=== PATIENT | female | born 1935 | race Caucasian/White ===

== ENCOUNTER 2021-02-19 07:53 | Day surgery (SDC) | payer MEDICAID, OTHER ==
[~2021-02-19] VITALS: Ht 157.5 cm; Wt 86.2 kg
[~2021-02-19 07:53] MED LIST: APIX5TAB PO; COLC1TAB3 PO; LEVO25TA6 PO; METO-159 PO; PREG50CA PO; THEO80EL PO
[2021-02-19] MEDS ORDERED: CIPROFLOXACIN 400MG/200ML 200 ML IV ONE (10:22)
[2021-02-19] MEDS ORDERED: fentaNYL CITRATE 100 MCG/2 ML VL ONE (11:11)
[2021-02-19] MEDS ORDERED: MIDAZOLAM HCL 1MG/1ML-2 ML VIAL ONE (11:12)
[2021-02-19] MEDS ORDERED: ONDANSETRON HCL 4 MG/2 ML VIAL ONE (12:05)
[2021-02-19] MEDS ORDERED: ONDANSETRON HCL 4 MG/2 ML VIAL IV PRN (12:45)
[2021-02-19 13:28] VITALS: BP 114/70
[2021-02-19] MEDS ORDERED: PROPOFOL 10 MG/ML 20 ML IV ONE (13:36)
== END 2021-02-19 13:30 | disposition home or self-care (01) ==
LOC: SUR 07:53
PROVIDERS: ATTEND Urology
DX: N20.0 Calculus of kidney (principal); I48.91 Unspecified atrial fibrillation; E03.9 Hypothyroidism, unspecified; J45.909 Unspecified asthma, uncomplicated; K21.9 Gastro-esophageal reflux disease without esophagitis; M19.90 Unspecified osteoarthritis, unspecified site; Z20.822 Contact with and (suspected) exposure to COVID-19; Z88.0 Allergy status to penicillin; Z88.5 Allergy status to narcotic agent; Z98.890 Other specified postprocedural states; Z90.710 Acquired absence of both cervix and uterus; Z95.0 Presence of cardiac pacemaker; Z88.8 Allergy status to other drugs, medicaments and biological substances; Z68.34 Body mass index [BMI] 34.0-34.9, adult
CPT/HCPCS: 50590; 52310; J0744; J2250; J2405; J2704; J3010; J7030; U0003

== ENCOUNTER 2021-10-14 09:04 | Emergency (ER) | payer OTHER ==
[~2021-10-14] VITALS: Ht 157.5 cm; Wt 86.2 kg
[2021-10-14] MEDS ORDERED: ALLOPURINOL 100 MG TAB PO ONE (09:45)
[2021-10-14 11:00] VITALS: BP 190/82
[2021-10-14] MEDS ORDERED: ALL100T PO (11:08)
== END 2021-10-14 11:20 | disposition home or self-care (01) ==
LOC: ER 09:04
DX: M77.9 Enthesopathy, unspecified (principal); M85.872 Other specified disorders of bone density and structure, left ankle and foot; M10.9 Gout, unspecified; Z88.0 Allergy status to penicillin; Z88.6 Allergy status to analgesic agent
CPT/HCPCS: 73630

== ENCOUNTER 2023-01-09 08:57 | Inpatient (IN) | payer OTHER ==
[~2023-01-09] VITALS: Ht 157.5 cm; Wt 73.0 kg
[~2023-01-09 08:57] MED LIST changes: +ALL100T PO
[2023-01-09 09:23] LABS: Basophils # (auto) 0 10 ^3/uL (0-0.2); Basophils % (auto) 0.4 % (0.0-2.0); Eosinophils # (auto) 0.1 10 ^3/uL (0-0.8); Eosinophils % (auto) 1.9 % (0.0-7.0); Hematocrit 41.9 % (36.0-46.0); Hemoglobin 13.9 g/dL (12.2-16.2); Lymphocytes # (auto) 1.6 10 ^3/uL (0.4-5.4); Lymphocytes % (auto) 21.5 % (10.0-50.0); Mean Corpuscular Hemoglobin 30.1 pg (28.0-32.0); Mean Corpuscular Hgb Conc. 33.3 g/dL (32.0-36.0); Mean Corpuscular Volume 90.2 fL (80.0-100.0); Monocytes # (auto) 0.7 10 ^3/uL (0-1.3); Monocytes % (auto) 8.9 % (0.0-12.0); Neutrophils # (auto) 5.2 10 ^3/uL (1.6-8.6); Neutrophils % (auto) 67.3 % (37.0-80.0); Nucleated Red Blood Cells % 0.2 %; Red Blood Cells 4.64 10^6/uL (4.0-5.20); Red Cell Distribution Width 17.9 % (11.8-14.3); White Blood Cell 7.7 10^3/uL (4.4-10.8)
[2023-01-09] MEDS ORDERED: ASPirin 81 mg TAB PO ONE (09:30)
[2023-01-09 09:45] LABS: INR 1.05 (0.9-1.15); Partial Thromboplastin Time 29.9 sec (24.6-33.4)
[2023-01-09 09:48] LABS: Albumin 3.9 g/dL (3.4-5.0); Calcium 9.7 mg/dL (8.5-10.1); Magnesium 2.3 mg/dL (1.6-2.6); Potassium 4.1 mmol/L (3.5-5.1)
[2023-01-09 09:53] LABS: Bilirubin, Total 0.5 mg/dL (0.2-1.0); Total Protein 7.4 g/dL (6.4-8.2)
[2023-01-09] MEDS ORDERED: HYDROmorphone HCL 2 MG/ML VL/or syr IV ONE ×2 (10:15→20:30)
[2023-01-09] MEDS ORDERED: ONDANSETRON HCL 4 MG/2 ML VIAL IV ONE (10:15)
[2023-01-09 15:19] LABS: Urine Bacteria NONE SEEN /hpf (None Seen); Urine Blood Negative /uL (Negative); Urine Specific Gravity 1.024 (1.001-1.035); Urine WBC 3 /hpf (0 - 5)
[2023-01-09] MEDS ORDERED: ONDANSETRON HCL 4 MG/2 ML VIAL IV PRN (18:00)
[2023-01-09] MEDS ORDERED: MORPHINE SULFATE INJ 2 MG/ml SYRG IV PRN ×2 (18:00)
[2023-01-09] MEDS ORDERED: DOCUSATE SOD 100 MG CAP PO PRN (18:00)
[2023-01-09] MEDS ORDERED: NITROGLYCERIN 0.4 MG SL TAB SL PRN (18:00)
[2023-01-09] MEDS ORDERED: ACETAMINOPHEN 325 MG TAB PO PRN (18:00)
[2023-01-10] MEDS: HYDROcodone-ACET 5/325MG TAB PO PRN ×2 (01:40→10:25)
[2023-01-10] MEDS ORDERED: ENOXAPARIN SOD 40 MG/0.4 ML SYRINGE SC SCH (10:00)
[2023-01-10] MEDS ORDERED: HYDROmorphone HCL 2 MG/ML VL/or syr IV ONE (13:00)
[2023-01-10] MEDS ORDERED: SODIUM CHLORIDE 0.9% 500 ML IV ONE (14:45)
[2023-01-10 16:25] VITALS: BP 121/67
[2023-01-10] MEDS ORDERED: PREGABALIN 25 MG CAP PO SCH (22:00)
[2023-01-10] MEDS ORDERED: APIXABAN 5 MG TAB PO SCH (22:00)
[2023-01-10] MEDS ORDERED: COLCHICINE 0.6 MG CAP PO SCH (22:00)
[2023-01-11] MEDS ORDERED: LEVOTHYROXINE SODIUM 25 MCG TAB PO SCH (07:00)
[2023-01-11] MEDS ORDERED: METOPROLOL SUCCINATE XL 50 MG TAB PO SCH (10:00)
[2023-01-11] MEDS ORDERED: ALLOPURINOL 100 MG TAB PO SCH (10:00)
[2023-01-11] MEDS ORDERED: THEOPHYLLINE 400 MG PO SCH (10:00)
== END 2023-01-10 16:47 | disposition home health service (06) | DRG 206 ==
LOC: ER 08:57 → TELE 23:41
PROVIDERS: ADMIT Internal Medicine; ATTEND Internal Medicine
DX: M94.0 Chondrocostal junction syndrome [Tietze] (principal); C44.90 Unspecified malignant neoplasm of skin, unspecified; J45.909 Unspecified asthma, uncomplicated; E03.9 Hypothyroidism, unspecified; M10.9 Gout, unspecified; I10 Essential (primary) hypertension; I48.0 Paroxysmal atrial fibrillation; Z88.0 Allergy status to penicillin; Z95.0 Presence of cardiac pacemaker; Z85.828 Personal history of other malignant neoplasm of skin; Z90.710 Acquired absence of both cervix and uterus; Z87.891 Personal history of nicotine dependence
CPT/HCPCS: 36415; 71045; 80053; 81001; 83735; 83880; 84484; 85025; 85610; 85730; 93005; 93306; 96372; 96374; 96375; 96376; 97163; 99291; G0378; J2405

== ENCOUNTER 2023-01-21 10:34 | Inpatient (IN) | payer OTHER ==
[~2023-01-21] VITALS: Ht 157.5 cm; Wt 82.3 kg
[2023-01-21] MEDS ORDERED: IPRATROPIUM BROM 0.5 MG/2.5ML INH SOL NEB ONE (11:30)
[2023-01-21] MEDS ORDERED: ALBUTEROL SULF 2.5 MG/0.5ML(0.5%) NEB SOLN NEB ONE (11:30)
[2023-01-21] MEDS ORDERED: methylPREDNISolone SOD SUCC 125 MG/2 ML VL IV ONE (11:30)
[2023-01-21 11:37] LABS: Basophils # (auto) 0 10 ^3/uL (0-0.2); Basophils % (auto) 0.3 % (0.0-2.0); Eosinophils # (auto) 0.1 10 ^3/uL (0-0.8); Eosinophils % (auto) 0.5 % (0.0-7.0); Hematocrit 39.8 % (36.0-46.0); Hemoglobin 12.8 g/dL (12.2-16.2); Lymphocytes # (auto) 1.3 10 ^3/uL (0.4-5.4); Lymphocytes % (auto) 13.1 % (10.0-50.0); Mean Corpuscular Hgb Conc. 32.2 g/dL (32.0-36.0); Mean Corpuscular Volume 93.3 fL (80.0-100.0); Monocytes # (auto) 0.8 10 ^3/uL (0-1.3); Monocytes % (auto) 8.4 % (0.0-12.0); Neutrophils # (auto) 7.5 10 ^3/uL (1.6-8.6); Neutrophils % (auto) 77.7 % (37.0-80.0); Red Blood Cells 4.26 10^6/uL (4.0-5.20); Red Cell Distribution Width 17.3 % (11.8-14.3); White Blood Cell 9.6 10^3/uL (4.4-10.8)
[2023-01-21 12:26] LABS: Potassium 4.1 mmol/L (3.5-5.1)
[2023-01-21 12:34] LABS: BUN/Creatinine Ratio 14.5 (10.0-20.0); Bilirubin, Total 0.5 mg/dL (0.2-1.0); Calcium 8.5 mg/dL (8.5-10.1); Total Protein 7.2 g/dL (6.4-8.2)
[2023-01-21] MEDS ORDERED: predniSONE 20 MG TAB PO ONE (15:00)
[2023-01-21] MEDS ORDERED: levoFLOXacin 250 MG TAB PO ONE (16:00)
[2023-01-21] MEDS ORDERED: FUROSEMIDE 20 MG/2 ML VIAL IV ONE (16:45)
[2023-01-21] MEDS ORDERED: NITROGLYCERIN 0.4 MG SL TAB SL PRN (19:15)
[2023-01-21 20:00] VITALS: BP 132/73
[2023-01-21] MEDS: APIXABAN 5 MG TAB PO SCH (21:56)
[2023-01-21] MEDS: PREGABALIN 25 MG CAP PO SCH (21:56)
[2023-01-21] MEDS: ACETAMINOPHEN 325 MG TAB PO PRN (21:56)
[2023-01-22 06:56] LABS: Calcium 9.1 mg/dL (8.5-10.1); Potassium 4.1 mmol/L (3.5-5.1)
[2023-01-22 07:00] LABS: Basophils # (auto) 0 10 ^3/uL (0-0.2); Basophils % (auto) 0.2 % (0.0-2.0); Eosinophils # (auto) 0 10 ^3/uL (0-0.8); Hematocrit 35.6 % (36.0-46.0); Hemoglobin 11.8 g/dL (12.2-16.2); Lymphocytes % (auto) 8.6 % (10.0-50.0); Mean Corpuscular Hemoglobin 29.8 pg (28.0-32.0); Mean Corpuscular Hgb Conc. 33.1 g/dL (32.0-36.0); Mean Corpuscular Volume 90.2 fL (80.0-100.0); Monocytes % (auto) 8.9 % (0.0-12.0); Neutrophils # (auto) 9.5 10 ^3/uL (1.6-8.6); Neutrophils % (auto) 82.3 % (37.0-80.0); Red Blood Cells 3.95 10^6/uL (4.0-5.20); Red Cell Distribution Width 16.6 % (11.8-14.3); White Blood Cell 11.6 10^3/uL (4.4-10.8)
[2023-01-22 07:02] LABS: BUN/Creatinine Ratio 19.8 (10.0-20.0); Bilirubin, Total 0.4 mg/dL (0.2-1.0); Total Protein 6.9 g/dL (6.4-8.2)
[2023-01-22] MEDS: LEVOTHYROXINE SODIUM 25 MCG TAB PO SCH (07:18)
[2023-01-22] MEDS ORDERED: AZITHROMYCIN 500MG/ 250ML 250 ML IV SCH (10:00)
[2023-01-22] MEDS ORDERED: THEOPHYLLINE 80 MG/15ml ORAL Elixir PO SCH (10:00)
[2023-01-22] MEDS ORDERED: METOPROLOL SUCCINATE XL 50 MG TAB PO SCH (10:00)
[2023-01-22] MEDS: APIXABAN 5 MG TAB PO SCH ×2 (10:32→22:00)
[2023-01-22] MEDS: PREGABALIN 25 MG CAP PO SCH ×2 (10:32→22:00)
[2023-01-22] MEDS: ALLOPURINOL 100 MG TAB PO SCH (10:32)
[2023-01-22] MEDS: FUROSEMIDE 20 MG/2 ML VIAL IV SCH (18:25)
[2023-01-22] MEDS: IPRATROPIUM BROM 0.5 MG/2.5ML INH SOL NEB PRN (22:45)
[2023-01-23] MEDS: ACETAMINOPHEN 325 MG TAB PO PRN ×2 (02:50→21:37)
[2023-01-23] MEDS: LEVOTHYROXINE SODIUM 25 MCG TAB PO SCH (06:42)
[2023-01-23] MEDS: FUROSEMIDE 20 MG/2 ML VIAL IV SCH ×2 (06:46→17:29)
[2023-01-23 07:00] LABS: BUN/Creatinine Ratio 24.4 (10.0-20.0); Calcium 9.2 mg/dL (8.5-10.1); Magnesium 2.3 mg/dL (1.6-2.6); Potassium 3.8 mmol/L (3.5-5.1)
[2023-01-23 10:12] VITALS: BP 120/59
[2023-01-23] MEDS: APIXABAN 5 MG TAB PO SCH ×2 (10:22→21:37)
[2023-01-23] MEDS: PREGABALIN 25 MG CAP PO SCH ×2 (10:22→21:36)
[2023-01-23] MEDS: ALLOPURINOL 100 MG TAB PO SCH (10:23)
[2023-01-23] MEDS: METOPROLOL SUCCINATE XL 50 MG TAB PO SCH (10:23)
[2023-01-23] MEDS ORDERED: THEO300T5 PO (10:45)
[2023-01-23] MEDS ORDERED: COLC0.6T56 PO (10:45)
[2023-01-23 11:07] VITALS: BP 120/59
[2023-01-23] MEDS: IPRATROPIUM BROM 0.5 MG/2.5ML INH SOL NEB PRN ×2 (11:47→18:16)
[2023-01-23 13:00] VITALS: BP 103/52
[2023-01-23 17:00] VITALS: BP 130/63
[2023-01-24] MEDS: IPRATROPIUM BROM 0.5 MG/2.5ML INH SOL NEB PRN (00:03)
[2023-01-24 00:13] VITALS: BP 130/85
[2023-01-24] MEDS: LEVOTHYROXINE SODIUM 25 MCG TAB PO SCH (06:27)
[2023-01-24] MEDS: FUROSEMIDE 20 MG/2 ML VIAL IV SCH ×3 (06:27→17:26)
[2023-01-24 09:00] VITALS: BP 118/34
[2023-01-24] MEDS: METOPROLOL SUCCINATE XL 50 MG TAB PO SCH (09:34)
[2023-01-24] MEDS: APIXABAN 5 MG TAB PO SCH (09:34)
[2023-01-24] MEDS: ALLOPURINOL 100 MG TAB PO SCH (09:34)
[2023-01-24] MEDS: PREGABALIN 25 MG CAP PO SCH (09:34)
[2023-01-24] MEDS ORDERED: FURO40TA4 PO (11:46)
[2023-01-24] MEDS ORDERED: METO25TA36 PO (11:46)
[2023-01-24] MEDS ORDERED: POTA8TAB15 PO (11:46)
[2023-01-24 12:10] VITALS: BP 118/34
[2023-01-24 13:00] VITALS: BP 118/57
[2023-01-24 16:40] VITALS: BP 108/73
[2023-01-28 14:05] LABS: Hepatitis C Antibody Negative (Negative)
== END 2023-01-24 20:34 | disposition home health service (06) | DRG 189 ==
LOC: ER 10:34 → TELE 19:35 → TELE-WESTW 01-23 09:50
PROVIDERS: ADMIT Nurse Practitioner Family; ATTEND Hospitalist
DX: J96.01 Acute respiratory failure with hypoxia (principal); E44.1 Mild protein-calorie malnutrition; J81.1 Chronic pulmonary edema; I31.39 Other pericardial effusion (noninflammatory); J45.901 Unspecified asthma with (acute) exacerbation; I50.42 Chronic combined systolic (congestive) and diastolic (congestive) heart failure; I11.0 Hypertensive heart disease with heart failure; I25.10 Atherosclerotic heart disease of native coronary artery without angina pectoris; E03.9 Hypothyroidism, unspecified; M10.9 Gout, unspecified; I48.0 Paroxysmal atrial fibrillation; Z68.34 Body mass index [BMI] 34.0-34.9, adult; Z88.0 Allergy status to penicillin; Z88.8 Allergy status to other drugs, medicaments and biological substances; Z85.828 Personal history of other malignant neoplasm of skin; Z87.891 Personal history of nicotine dependence; Z90.710 Acquired absence of both cervix and uterus; Z95.0 Presence of cardiac pacemaker
CPT/HCPCS: 36415; 36600; 71045; 71275; 80048; 80053; 82805; 83605; 83735; 83880; 84484; 85025; 85379; 86803; 87040; 87070; 87081; 87205; 87340; 93005; 94640; 97163; 99291; G0378

== ENCOUNTER 2023-05-02 23:56 | Inpatient (IN) | payer OTHER ==
[~2023-05-02] VITALS: Ht 152.4 cm; Wt 78.0 kg
[~2023-05-02 23:56] MED LIST changes: +COLC0.6T56 PO; -COLC1TAB3 PO; +FURO40TA4 PO; -METO-159 PO; +METO25TA36 PO; +POTA8TAB15 PO; -THEO80EL PO
[2023-05-03 00:59] LABS: Basophils # (auto) 0 10 ^3/uL (0-0.2); Basophils % (auto) 0.5 % (0.0-2.0); Eosinophils # (auto) 0.1 10 ^3/uL (0-0.8); Eosinophils % (auto) 1.2 % (0.0-7.0); Hematocrit 40.1 % (36.0-46.0); Hemoglobin 13.1 g/dL (12.2-16.2); Lymphocytes # (auto) 1.2 10 ^3/uL (0.4-5.4); Lymphocytes % (auto) 14.9 % (10.0-50.0); Mean Corpuscular Hemoglobin 28.3 pg (28.0-32.0); Mean Corpuscular Hgb Conc. 32.7 g/dL (32.0-36.0); Mean Corpuscular Volume 86.5 fL (80.0-100.0); Neutrophils # (auto) 5.9 10 ^3/uL (1.6-8.6); Neutrophils % (auto) 71.4 % (37.0-80.0); Nucleated Red Blood Cells % 0.1 %; Red Blood Cells 4.64 10^6/uL (4.0-5.20); Red Cell Distribution Width 17.3 % (11.8-14.3); White Blood Cell 8.3 10^3/uL (4.4-10.8)
[2023-05-03 01:11] LABS: Albumin 4.4 g/dL (3.2-4.8); Alkaline Phosphatase 94 U/L (46-116); Anion Gap 8.6 (5-15); Aspartate Aminotransferase 21 U/L (13-40); BUN/Creatinine Ratio 18.1 (10.0-20.0); Blood Urea Nitrogen 13 mg/dL (9-23); Calcium 9.9 mg/dL (8.7-10.4); Carbon Dioxide 23.4 mmol/L (20-30); Chloride 104 mmol/L (98-107); Glucose 131 mg/dL (74-106); Lipase 28 U/L (12-53); Magnesium 1.9 mg/dL (1.6-2.6); Potassium 3.7 mmol/L (3.5-5.1); Sodium 136 mmol/L (136-145)
[2023-05-03 01:12] LABS: Alanine Aminotransferase < 9 U/L (7-40); Bilirubin, Total 0.9 mg/dL (0.2-1.0); Total Protein 7.2 g/dL (5.7-8.2)
[2023-05-03 01:13] LABS: INR 1.17 (0.9-1.15); Partial Thromboplastin Time 33.9 SEC (24.5-34.5); Prothrombin Time 12.2 sec (9.3-11.8)
[2023-05-03 01:25] VITALS: PULSE 113; RESP 14; O2SAT 94
[2023-05-03] MEDS ORDERED: ONDANSETRON HCL 4 MG/2 ML VIAL IV ONE ×2 (01:30→04:15)
[2023-05-03] MEDS ORDERED: fentaNYL CITRATE 100 MCG/2 ML VL IV ONE (01:30)
[2023-05-03] MEDS ORDERED: HYDROmorphone HCL 2 MG/ML VL/or syr IV ONE ×2 (04:15→23:30)
[2023-05-03] MEDS ORDERED: KETOROLAC TROMETH 30 MG/ML 1ML VIAL IV ONE (04:45)
[2023-05-03 07:59] VITALS: PULSE 90; RESP 14; O2SAT 93
[2023-05-03] MEDS ORDERED: SENNA 8.6 MG TAB PO PRN (19:15)
[2023-05-03 19:30] VITALS: PULSE 123; RESP 25; O2SAT 96
[2023-05-03] MEDS ORDERED: PREG50CA PO (20:30)
[2023-05-03 22:22] LABS: Urine Bacteria NONE SEEN /hpf (None Seen); Urine Blood Negative /uL (Negative); Urine Clarity HAZY (Clear); Urine Color Yellow (Yellow); Urine Mucus FEW (None Seen); Urine Protein, UAD TRACE (Negative); Urine Specific Gravity 1.021 (1.001-1.035); Urine Urobilinogen Normal (Negative); Urine WBC 2 /hpf (0 - 5); Urine pH 5.5 (5.0-8.0)
[2023-05-04] MEDS ORDERED: HYDROmorphone HCL 2 MG/ML VL/or syr IV ONE (04:15)
[2023-05-04 07:50] VITALS: PULSE 79; RESP 13; O2SAT 99
[2023-05-05] MEDS ORDERED: LORazepam 2MG/ML-1ML VIAL IV ONE (01:00)
[2023-05-05 03:30] VITALS: PULSE 107; RESP 20; O2SAT 95
[2023-05-05] MEDS ORDERED: diphenhdrAMINE HCL 50 MG/1 ML VL ONE (04:18)
[2023-05-05] MEDS ORDERED: HALOPERIDOL LACTATE 5 MG/ML INJ VIAL ONE (04:18)
[2023-05-05] MEDS ORDERED: diphenhdrAMINE HCL 50 MG/1 ML VL IV ONE (04:30)
[2023-05-05] MEDS ORDERED: HALOPERIDOL LACTATE 5 MG/ML INJ VIAL IM ONE (04:30)
[2023-05-05 07:53] VITALS: PULSE 128; RESP 20; O2SAT 93
[2023-05-05] MEDS ORDERED: diphenhdrAMINE HCL 25 MG CAP PO ONE (10:15)
[2023-05-05 20:00] VITALS: PULSE 122; RESP 20; O2SAT 96
[2023-05-05] MEDS ORDERED: METOPROLOL SUCCINATE XL 50 MG TAB PO ONE (23:15)
[2023-05-06] MEDS: LEVOTHYROXINE SODIUM 25 MCG TAB PO SCH (07:00)
[2023-05-06] MEDS: APIXABAN 5 MG TAB PO SCH ×2 (11:18→21:49)
[2023-05-06] MEDS: ALLOPURINOL 100 MG TAB PO SCH (11:19)
[2023-05-06] MEDS: METOPROLOL SUCCINATE XL 50 MG TAB PO SCH (11:19)
[2023-05-06] MEDS: FUROSEMIDE 40 MG TAB PO SCH (11:19)
[2023-05-06 15:31] LABS: COVID19 ANTIGEN SOFIA FIA NEGATIVE (NEGATIVE)
[2023-05-06 19:50] VITALS: PULSE 111; RESP 20; O2SAT 96
[2023-05-07] MEDS: LEVOTHYROXINE SODIUM 25 MCG TAB PO SCH (06:04)
[2023-05-07 08:00] VITALS: PULSE 96; RESP 18; O2SAT 95
[2023-05-07] MEDS ORDERED: ACETAMINOPHEN 325 MG TAB PO PRN ×2 (08:00→17:15)
[2023-05-07] MEDS: ALLOPURINOL 100 MG TAB PO SCH (08:33)
[2023-05-07] MEDS: FUROSEMIDE 40 MG TAB PO SCH (08:35)
[2023-05-07] MEDS: METOPROLOL SUCCINATE XL 50 MG TAB PO SCH (08:35)
[2023-05-07] MEDS: APIXABAN 5 MG TAB PO SCH ×2 (08:36→22:37)
[2023-05-07] MEDS ORDERED: DOCUSATE SOD 100 MG CAP PO PRN (17:15)
[2023-05-07] MEDS ORDERED: ONDANSETRON HCL 4 MG/2 ML VIAL IV PRN (17:15)
[2023-05-07] MEDS: SODIUM CHLOR 0.9% PF (SALINE LOCK) 10ML VIAL/SYR IV SCH (22:38)
[2023-05-08 05:05] LABS: Basophils # (auto) 0.1 10 ^3/uL (0-0.2); Basophils % (auto) 0.8 % (0.0-2.0); Eosinophils # (auto) 0.2 10 ^3/uL (0-0.8); Eosinophils % (auto) 2.4 % (0.0-7.0); Hematocrit 42.8 % (36.0-46.0); Hemoglobin 14.3 g/dL (12.2-16.2); Lymphocytes % (auto) 22.7 % (10.0-50.0); Mean Corpuscular Hemoglobin 28.1 pg (28.0-32.0); Mean Corpuscular Hgb Conc. 33.3 g/dL (32.0-36.0); Mean Corpuscular Volume 84.4 fL (80.0-100.0); Monocytes # (auto) 0.8 10 ^3/uL (0-1.3); Monocytes % (auto) 9.2 % (0.0-12.0); Neutrophils # (auto) 5.8 10 ^3/uL (1.6-8.6); Neutrophils % (auto) 64.9 % (37.0-80.0); Nucleated Red Blood Cells % 0.2 %; Red Blood Cells 5.07 10^6/uL (4.0-5.20); Red Cell Distribution Width 16.9 % (11.8-14.3)
[2023-05-08 05:12] LABS: Alanine Aminotransferase 12 U/L (7-40); Albumin 4.4 g/dL (3.2-4.8); Alkaline Phosphatase 93 U/L (46-116); Anion Gap 10.2 (5-15); Aspartate Aminotransferase 28 U/L (13-40); BUN/Creatinine Ratio 31.3 (10.0-20.0); Bilirubin, Total 0.9 mg/dL (0.2-1.0); Blood Urea Nitrogen 30 mg/dL (9-23); Calcium 10.1 mg/dL (8.7-10.4); Carbon Dioxide 25.8 mmol/L (20-30); Chloride 103 mmol/L (98-107); Glucose 114 mg/dL (74-106); Potassium 3.5 mmol/L (3.5-5.1); Sodium 139 mmol/L (136-145); Total Protein 7.5 g/dL (5.7-8.2)
[2023-05-08] MEDS: LEVOTHYROXINE SODIUM 25 MCG TAB PO SCH (07:00)
[2023-05-08] MEDS: SODIUM CHLOR 0.9% PF (SALINE LOCK) 10ML VIAL/SYR IV SCH ×3 (07:49→23:31)
[2023-05-08] MEDS: FUROSEMIDE 40 MG TAB PO SCH (10:35)
[2023-05-08] MEDS: APIXABAN 5 MG TAB PO SCH ×2 (10:35→23:25)
[2023-05-08] MEDS: METOPROLOL SUCCINATE XL 50 MG TAB PO SCH (10:36)
[2023-05-08] MEDS: ALLOPURINOL 100 MG TAB PO SCH (10:36)
[2023-05-08] MEDS: HYDROcodone-ACET 5/325MG TAB PO PRN (23:24)
[2023-05-09] MEDS: LEVOTHYROXINE SODIUM 25 MCG TAB PO SCH (06:40)
[2023-05-09 09:00] VITALS: BP 131/53; PULSE 99; RESP 17; TEMP 98.4; O2SAT 93
[2023-05-09] MEDS: ALLOPURINOL 100 MG TAB PO SCH (10:54)
[2023-05-09] MEDS: APIXABAN 5 MG TAB PO SCH ×2 (10:54→22:48)
[2023-05-09] MEDS: FUROSEMIDE 40 MG TAB PO SCH (10:55)
[2023-05-09] MEDS: METOPROLOL SUCCINATE XL 50 MG TAB PO SCH (10:56)
[2023-05-09 13:00] VITALS: BP 152/81; PULSE 99; RESP 18; TEMP 98.3; O2SAT 94
[2023-05-09] MEDS: SODIUM CHLOR 0.9% PF (SALINE LOCK) 10ML VIAL/SYR IV SCH ×3 (14:00→23:00)
[2023-05-09 14:16] LABS: COVID19 ANTIGEN SOFIA FIA NEGATIVE (NEGATIVE)
[2023-05-09 17:00] VITALS: BP 118/58; PULSE 85; RESP 18; TEMP 97.6; O2SAT 96
[2023-05-09 20:00] VITALS: PULSE 65; RESP 20; O2SAT 99
[2023-05-09 22:00] VITALS: BP 117/61; PULSE 65; RESP 20; TEMP 98.1; O2SAT 99
[2023-05-09] MEDS: HYDROcodone-ACET 5/325MG TAB PO PRN (22:51)
[2023-05-10] MEDS: HYDROcodone-ACET 5/325MG TAB PO PRN ×2 (02:47→17:13)
[2023-05-10 05:00] VITALS: BP 141/70; PULSE 78; RESP 20; TEMP 97.8; O2SAT 95
[2023-05-10] MEDS: LEVOTHYROXINE SODIUM 25 MCG TAB PO SCH (06:44)
[2023-05-10] MEDS: SODIUM CHLOR 0.9% PF (SALINE LOCK) 10ML VIAL/SYR IV SCH ×2 (06:44→14:00)
[2023-05-10 08:00] VITALS: PULSE 83; RESP 18; O2SAT 97
[2023-05-10 09:00] VITALS: BP 147/70; PULSE 83; RESP 18; TEMP 97.8; O2SAT 97
[2023-05-10] MEDS: APIXABAN 5 MG TAB PO SCH (09:06)
[2023-05-10] MEDS: ALLOPURINOL 100 MG TAB PO SCH (09:07)
[2023-05-10] MEDS: FUROSEMIDE 40 MG TAB PO SCH (09:09)
[2023-05-10] MEDS: METOPROLOL SUCCINATE XL 50 MG TAB PO SCH (09:10)
[2023-05-10 13:00] VITALS: BP 123/49; PULSE 96; RESP 17; TEMP 98.4; O2SAT 96
[2023-05-10 15:42] VITALS: BP 126/82; PULSE 96; RESP 18; TEMP 98.4; O2SAT 96
== END 2023-05-10 17:15 | DRG 641 ==
LOC: EDUNIT# 23:56 → EDBD 23:56 → ER 05-03 00:03 → CENTRAL 05-05 17:28
PROVIDERS: ADMIT Nurse Practitioner Family; ATTEND Internal Medicine
DX: R62.7 Adult failure to thrive (principal); G89.29 Other chronic pain; M10.9 Gout, unspecified; Z20.822 Contact with and (suspected) exposure to COVID-19; I48.91 Unspecified atrial fibrillation; J44.9 Chronic obstructive pulmonary disease, unspecified; E03.9 Hypothyroidism, unspecified; I50.9 Heart failure, unspecified; I11.0 Hypertensive heart disease with heart failure; Z51.5 Encounter for palliative care; Z87.891 Personal history of nicotine dependence; Z88.0 Allergy status to penicillin; Z88.6 Allergy status to analgesic agent; Z79.899 Other long term (current) drug therapy; Z79.01 Long term (current) use of anticoagulants; Z88.5 Allergy status to narcotic agent; Z83.3 Family history of diabetes mellitus; Z82.49 Family history of ischemic heart disease and other diseases of the circulatory system; Z90.710 Acquired absence of both cervix and uterus; Z68.33 Body mass index [BMI] 33.0-33.9, adult
CPT/HCPCS: 36415; 71045; 80053; 81001; 82962; 83690; 83735; 85025; 85610; 85730; 87426; 93005; 96372; 96374; 96375; 96376; 97110; 97116; 97163; 97530; G0378; J1885; J2405

== ENCOUNTER 2023-07-28 22:10 | Emergency (ER) | payer OTHER ==
[~2023-07-28 22:10] MED LIST changes: -PREG50CA PO
[2023-07-28 22:21] VITALS: TEMP 97.2
[2023-07-29] MEDS ORDERED: ONDANSETRON ODT 4 MG TAB PO ONE (00:15)
[2023-07-29] MEDS ORDERED: HYDROcodone-ACET 10/325MG TAB PO ONE ×2 (00:15→04:15)
[2023-07-29 00:59] VITALS: BP 159/83; PULSE 78; RESP 18; O2SAT 98
[2023-07-29 01:01] LABS: Basophils # (auto) 0 10 ^3/uL (0-0.2); Basophils % (auto) 0.4 % (0.0-2.0); Eosinophils # (auto) 0.1 10 ^3/uL (0-0.8); Eosinophils % (auto) 1.6 % (0.0-7.0); Hematocrit 40.2 % (36.0-46.0); Hemoglobin 13.1 g/dL (12.2-16.2); Lymphocytes # (auto) 0.7 10 ^3/uL (0.4-5.4); Lymphocytes % (auto) 11.4 % (10.0-50.0); Mean Corpuscular Hemoglobin 27.6 pg (28.0-32.0); Mean Corpuscular Hgb Conc. 32.6 g/dL (32.0-36.0); Mean Corpuscular Volume 84.8 fL (80.0-100.0); Monocytes # (auto) 0.7 10 ^3/uL (0-1.3); Monocytes % (auto) 12.6 % (0.0-12.0); Neutrophils # (auto) 4.3 10 ^3/uL (1.6-8.6); Nucleated Red Blood Cells % 0.1 %; Red Blood Cells 4.73 10^6/uL (4.0-5.20); Red Cell Distribution Width 19.4 % (11.8-14.3); White Blood Cell 5.8 10^3/uL (4.4-10.8)
[2023-07-29 01:13] LABS: Alkaline Phosphatase 166 U/L (46-116); Anion Gap 7 (5-15); Aspartate Aminotransferase 24 U/L (13-40); BUN/Creatinine Ratio 11.4 (10.0-20.0); Blood Urea Nitrogen 8 mg/dL (9-23); Calcium 9.6 mg/dL (8.7-10.4); Carbon Dioxide 27 mmol/L (20-30); Chloride 102 mmol/L (98-107); Glucose 119 mg/dL (74-106); INR 1.25 (0.9-1.15); Partial Thromboplastin Time 37.6 SEC (24.5-34.5); Potassium 3.6 mmol/L (3.5-5.1); Prothrombin Time 12.9 sec (9.3-11.8); Sodium 136 mmol/L (136-145)
[2023-07-29 01:14] LABS: Albumin 4.3 g/dL (3.2-4.8); Total Protein 7.3 g/dL (5.7-8.2)
[2023-07-29 01:41] LABS: Alanine Aminotransferase < 9 U/L (7-40)
[2023-07-29] MEDS ORDERED: SULF800T23 PO (04:16)
== END 2023-07-29 04:42 | disposition home or self-care (01) ==
LOC: ER 22:10 → EDBD 22:10 → EDUNIT# 22:10 → ER 07-29 04:42
DX: S39.012A Strain of muscle, fascia and tendon of lower back, initial encounter (principal); N39.0 Urinary tract infection, site not specified; M54.2 Cervicalgia; J44.9 Chronic obstructive pulmonary disease, unspecified; I48.91 Unspecified atrial fibrillation; F03.90 Unspecified dementia, unspecified severity, without behavioral disturbance, psychotic disturbance, mood disturbance, and anxiety; W18.39XA Other fall on same level, initial encounter; Y93.01 Activity, walking, marching and hiking; Y92.89 Other specified places as the place of occurrence of the external cause; Y99.8 Other external cause status
CPT/HCPCS: 36415; 70450; 72125; 72131; 72192; 74176; 80053; 85025; 85610; 85730; 93005; 99284; Q0162

== ENCOUNTER 2023-08-19 17:44 | Inpatient (IN) | payer OTHER ==
[~2023-08-19] VITALS: Ht 157.5 cm; Wt 67.9 kg
[~2023-08-19 17:44] MED LIST changes: +SULF800T23 PO
[2023-08-19 20:39] LABS: Basophils # (auto) 0 10 ^3/uL (0-0.2); Basophils % (auto) 0.4 % (0.0-2.0); Eosinophils # (auto) 0.2 10 ^3/uL (0-0.8); Eosinophils % (auto) 2.7 % (0.0-7.0); Hematocrit 39.6 % (36.0-46.0); Hemoglobin 12.8 g/dL (12.2-16.2); Lymphocytes # (auto) 1.2 10 ^3/uL (0.4-5.4); Mean Corpuscular Hemoglobin 27.9 pg (28.0-32.0); Mean Corpuscular Hgb Conc. 32.4 g/dL (32.0-36.0); Mean Corpuscular Volume 86.2 fL (80.0-100.0); Monocytes # (auto) 0.7 10 ^3/uL (0-1.3); Monocytes % (auto) 9.9 % (0.0-12.0); Neutrophils # (auto) 4.8 10 ^3/uL (1.6-8.6); Nucleated Red Blood Cells % 0.1 %; Red Blood Cells 4.59 10^6/uL (4.0-5.20); Red Cell Distribution Width 18.2 % (11.8-14.3); White Blood Cell 6.9 10^3/uL (4.4-10.8)
[2023-08-19 20:54] LABS: INR 1.21 (0.9-1.15); Partial Thromboplastin Time 30.4 SEC (24.5-34.5); Prothrombin Time 12.5 sec (9.3-11.8)
[2023-08-19 21:10] LABS: Alanine Aminotransferase 17 U/L (7-40); Albumin 3.9 g/dL (3.2-4.8); Alkaline Phosphatase 182 U/L (46-116); Anion Gap 10 (5-15); Aspartate Aminotransferase 42 U/L (13-40); BUN/Creatinine Ratio 32.7 (10.0-20.0); Bilirubin, Total 0.5 mg/dL (0.2-1.0); Blood Urea Nitrogen 32 mg/dL (9-23); Calcium 12.4 mg/dL (8.5-10.1); Carbon Dioxide 26 mmol/L (20-30); Chloride 105 mmol/L (98-107); Glucose 117 mg/dL (74-106); Sodium 141 mmol/L (136-145); Total Protein 6.3 g/dL (5.7-8.2)
[2023-08-19] MEDS ORDERED: IOHEXOL 350 MG/ML 100ML IJ ONE (21:37)
[2023-08-19 23:15] VITALS: PULSE 63; RESP 16; O2SAT 94
[2023-08-20] VITALS (7 sets, daily range): BP systolic 112–140; BP diastolic 57–65; PULSE 60–89; RESP 18–20; TEMP 97.6–98.7; O2SAT 96–100
[2023-08-20] MEDS ORDERED: PIPERACILLIN-TAZOB 3.375GM 100 ML IV ONE (02:15)
[2023-08-20] MEDS ORDERED: LACTATED RINGER'S 2,000 ML IV ONE (02:15)
[2023-08-20] MEDS ORDERED: POTASSIUM CHL 20MEQ/100ML 100 ML IV ONE (02:15)
[2023-08-20] MEDS ORDERED: metroNIDAZOLE 500MG/100ML 100 ML IV ONE (02:15)
[2023-08-20] MEDS ORDERED: ONDANSETRON HCL 4 MG/2 ML VIAL IV PRN (04:45)
[2023-08-20] MEDS ORDERED: DEXTROSE (50%) 50ML SYRG IV PRN (04:45)
[2023-08-20] MEDS ORDERED: MORPHINE SULFATE INJ 2 MG/ml SYRG IV PRN (04:45)
[2023-08-20] MEDS ORDERED: D5W/SOD CHL 0.45% 1,000 ML IV SCH (04:45)
[2023-08-20] MEDS ORDERED: NITROGLYCERIN 0.4 MG SL TAB SL PRN (04:45)
[2023-08-20] MEDS ORDERED: HYDROcodone-ACET 10/325MG TAB PO ONE (05:00)
[2023-08-20 05:41] LABS: Urine Bacteria FEW /hpf (None Seen); Urine Blood TRACE /uL (Negative); Urine Clarity Clear (Clear); Urine Color Yellow (Yellow); Urine Mucus FEW (None Seen); Urine Protein, UAD TRACE (Negative); Urine Specific Gravity > 1.050 (1.001-1.035); Urine Urobilinogen Normal (Negative); Urine WBC 21 /hpf (0 - 5)
[2023-08-20] MEDS: InsuLIN REG 1unit/0.01ml Soln (100units/ml) SC SCH ×4 (05:54→23:47)
[2023-08-20] MEDS: ACCU-CHEK COMFORT CURVE STRIP VI SCH ×4 (05:54→23:47)
[2023-08-20] MEDS ORDERED: PIPERACILLIN-TAZOB 3.375GM 100 ML IV SCH (06:00)
[2023-08-20 07:27] LABS: Basophils # (auto) 0 10 ^3/uL (0-0.2); Basophils % (auto) 0.4 % (0.0-2.0); Eosinophils # (auto) 0.2 10 ^3/uL (0-0.8); Eosinophils % (auto) 2.9 % (0.0-7.0); Hematocrit 37.2 % (36.0-46.0); Hemoglobin 12.4 g/dL (12.2-16.2); Lymphocytes # (auto) 1.1 10 ^3/uL (0.4-5.4); Lymphocytes % (auto) 18.1 % (10.0-50.0); Mean Corpuscular Hemoglobin 28.6 pg (28.0-32.0); Mean Corpuscular Hgb Conc. 33.4 g/dL (32.0-36.0); Mean Corpuscular Volume 85.7 fL (80.0-100.0); Monocytes # (auto) 0.7 10 ^3/uL (0-1.3); Monocytes % (auto) 10.7 % (0.0-12.0); Neutrophils # (auto) 4.2 10 ^3/uL (1.6-8.6); Neutrophils % (auto) 67.9 % (37.0-80.0); Nucleated Red Blood Cells % 0.1 %; Red Blood Cells 4.34 10^6/uL (4.0-5.20); Red Cell Distribution Width 18.6 % (11.8-14.3); White Blood Cell 6.3 10^3/uL (4.4-10.8)
[2023-08-20 07:40] LABS: Anion Gap 8 (5-15); Carbon Dioxide 26 mmol/L (20-30); Chloride 105 mmol/L (98-107); Potassium 3.1 mmol/L (3.5-5.1); Sodium 139 mmol/L (136-145)
[2023-08-20 07:41] LABS: Calcium 11.4 mg/dL (8.5-10.1)
[2023-08-20 07:46] LABS: BUN/Creatinine Ratio 20.7 (10.0-20.0); Blood Urea Nitrogen 19 mg/dL (9-23); Glucose 114 mg/dL (74-106)
[2023-08-20] MEDS ORDERED: POTASSIUM CHL 20 Meq TABLET PO ONE (11:00)
[2023-08-20] MEDS: PANTOPRAZOLE 40 MG/10 ML VIAL INJ IV SCH (12:02)
[2023-08-20] MEDS: PIPERACILLIN-TAZOB 3.375GM 100 ML IV SCH ×2 (14:47→21:56)
[2023-08-20 16:06] LABS: Hematocrit 37.3 % (36.0-46.0)
[2023-08-21] VITALS (7 sets, daily range): BP systolic 118–136; BP diastolic 50–65; PULSE 57–83; RESP 16–20; TEMP 97.5–98; O2SAT 97–100
[2023-08-21] MEDS: ACETAMINOPHEN 325 MG TAB PO PRN ×2 (00:10→08:51)
[2023-08-21] MEDS: PIPERACILLIN-TAZOB 3.375GM 100 ML IV SCH ×3 (05:52→21:31)
[2023-08-21] MEDS: InsuLIN REG 1unit/0.01ml Soln (100units/ml) SC SCH ×4 (05:54→22:13)
[2023-08-21] MEDS: ACCU-CHEK COMFORT CURVE STRIP VI SCH ×4 (05:54→21:31)
[2023-08-21 06:30] LABS: Basophils # (auto) 0 10 ^3/uL (0-0.2); Basophils % (auto) 0.5 % (0.0-2.0); Eosinophils # (auto) 0.2 10 ^3/uL (0-0.8); Eosinophils % (auto) 4.4 % (0.0-7.0); Hemoglobin 11.3 g/dL (12.2-16.2); Mean Corpuscular Hgb Conc. 32.4 g/dL (32.0-36.0); Mean Corpuscular Volume 86.2 fL (80.0-100.0); Monocytes # (auto) 0.5 10 ^3/uL (0-1.3); Monocytes % (auto) 11.4 % (0.0-12.0); Neutrophils # (auto) 2.6 10 ^3/uL (1.6-8.6); Neutrophils % (auto) 60.7 % (37.0-80.0); Nucleated Red Blood Cells % 0.1 %; Red Blood Cells 4.06 10^6/uL (4.0-5.20); Red Cell Distribution Width 18.2 % (11.8-14.3); White Blood Cell 4.3 10^3/uL (4.4-10.8)
[2023-08-21 06:33] LABS: Chloride 106 mmol/L (98-107); Potassium 3.7 mmol/L (3.5-5.1); Sodium 139 mmol/L (136-145)
[2023-08-21 06:34] LABS: Anion Gap 8 (5-15); Calcium 11.1 mg/dL (8.5-10.1); Carbon Dioxide 25 mmol/L (20-30)
[2023-08-21 06:39] LABS: Blood Urea Nitrogen 16 mg/dL (9-23); Glucose 90 mg/dL (74-106)
[2023-08-21 06:48] LABS: BUN/Creatinine Ratio 15.4 (10.0-20.0)
[2023-08-21] MEDS: PANTOPRAZOLE 40 MG/10 ML VIAL INJ IV SCH (08:50)
[2023-08-21] MEDS: LEVOTHYROXINE SODIUM 25 MCG TAB PO SCH (08:51)
[2023-08-21] MEDS: ALLOPURINOL 100 MG TAB PO SCH (08:51)
[2023-08-21] MEDS: METOPROLOL SUCCINATE XL 50 MG TAB PO SCH (08:53)
[2023-08-21] MEDS ORDERED: POTASSIUM CHLORIDE 8 MEQ TAB PO SCH (10:00)
[2023-08-21] MEDS ORDERED: GOLYTELY 4L KIT PO ONE (16:00)
[2023-08-21] MEDS ORDERED: GOLYTELY 4L KIT ONE ×2 (17:10→17:21)
[2023-08-22] VITALS (7 sets, daily range): BP systolic 113–151; BP diastolic 50–74; PULSE 60–72; RESP 17–20; TEMP 36.5; O2SAT 99–100
[2023-08-22] MEDS ORDERED: GOLYTELY 4L KIT PO ONE (06:00)
[2023-08-22] MEDS: InsuLIN REG 1unit/0.01ml Soln (100units/ml) SC SCH ×3 (06:00→18:00)
[2023-08-22 06:23] LABS: Basophils # (auto) 0 10 ^3/uL (0-0.2); Basophils % (auto) 0.7 % (0.0-2.0); Eosinophils # (auto) 0.2 10 ^3/uL (0-0.8); Eosinophils % (auto) 5.9 % (0.0-7.0); Hematocrit 35.1 % (36.0-46.0); Hemoglobin 11.4 g/dL (12.2-16.2); Lymphocytes % (auto) 24.9 % (10.0-50.0); Mean Corpuscular Hemoglobin 28.2 pg (28.0-32.0); Mean Corpuscular Hgb Conc. 32.5 g/dL (32.0-36.0); Mean Corpuscular Volume 86.8 fL (80.0-100.0); Monocytes # (auto) 0.5 10 ^3/uL (0-1.3); Monocytes % (auto) 12.6 % (0.0-12.0); Neutrophils # (auto) 2.3 10 ^3/uL (1.6-8.6); Neutrophils % (auto) 55.9 % (37.0-80.0); Red Blood Cells 4.04 10^6/uL (4.0-5.20); Red Cell Distribution Width 18.4 % (11.8-14.3); White Blood Cell 4.1 10^3/uL (4.4-10.8)
[2023-08-22] MEDS: ACCU-CHEK COMFORT CURVE STRIP VI SCH ×3 (06:26→18:00)
[2023-08-22 06:33] LABS: Chloride 106 mmol/L (98-107); Potassium 3.8 mmol/L (3.5-5.1); Sodium 140 mmol/L (136-145)
[2023-08-22 06:34] LABS: Anion Gap 8 (5-15); Calcium 10.9 mg/dL (8.5-10.1); Carbon Dioxide 26 mmol/L (20-30)
[2023-08-22 06:39] LABS: BUN/Creatinine Ratio 12.1 (10.0-20.0); Blood Urea Nitrogen 12 mg/dL (9-23); Glucose 91 mg/dL (74-106)
[2023-08-22] MEDS: PIPERACILLIN-TAZOB 3.375GM 100 ML IV SCH ×3 (06:40→15:20)
[2023-08-22] MEDS: LEVOTHYROXINE SODIUM 25 MCG TAB PO SCH (09:33)
[2023-08-22] MEDS: ALLOPURINOL 100 MG TAB PO SCH (09:33)
[2023-08-22] MEDS: METOPROLOL SUCCINATE XL 50 MG TAB PO SCH (09:35)
[2023-08-22] MEDS: ACETAMINOPHEN 325 MG TAB PO PRN (11:18)
[2023-08-22] MEDS ORDERED: CIPR-273 PO (12:24)
[2023-08-22] MEDS ORDERED: HYDROcodone-ACET 5/325MG TAB PO PRN (12:30)
== END 2023-08-22 18:30 | disposition home or self-care (01) | DRG 394 ==
LOC: ER 17:44 → EDBD 17:44 → TELE 08-20 04:42 → TELE-CENTR 08-20 07:52
PROVIDERS: ADMIT Internal Medicine; ATTEND Hospitalist
PROC: 0DJD8ZZ Inspection of Lower Intestinal Tract, Via Natural or Artificial Opening Endoscopic (ICD-10-PCS; principal; 2023-08-21 18:00)
DX: K64.8 Other hemorrhoids (principal); I13.0 Hypertensive heart and chronic kidney disease with heart failure and stage 1 through stage 4 chronic kidney disease, or unspecified chronic kidney disease; I48.20 Chronic atrial fibrillation, unspecified; N39.0 Urinary tract infection, site not specified; K62.89 Other specified diseases of anus and rectum; J44.89 Other specified chronic obstructive pulmonary disease; E03.9 Hypothyroidism, unspecified; F03.90 Unspecified dementia, unspecified severity, without behavioral disturbance, psychotic disturbance, mood disturbance, and anxiety; K64.4 Residual hemorrhoidal skin tags; R62.7 Adult failure to thrive; G89.29 Other chronic pain; R73.9 Hyperglycemia, unspecified; N18.9 Chronic kidney disease, unspecified; I50.84 End stage heart failure; Z51.5 Encounter for palliative care; Z87.891 Personal history of nicotine dependence; Z90.710 Acquired absence of both cervix and uterus; Z88.0 Allergy status to penicillin; Z88.5 Allergy status to narcotic agent; Z88.8 Allergy status to other drugs, medicaments and biological substances; Z68.27 Body mass index [BMI] 27.0-27.9, adult
CPT/HCPCS: 36415; 45330; 70450; 74177; 80048; 80053; 81001; 82270; 82962; 85014; 85018; 85025; 85610; 85730; 86850; 86900; 86901; 87040; C9113; G0378; J2543; J3480; J3490

== ENCOUNTER 2024-06-30 15:12 | Inpatient (IN) | payer OTHER, MEDICAID ==
[~2024-06-30] VITALS: Ht 160 cm; Wt 77.5 kg
[2024-06-30] MEDS: NYSTATIN TOPICAL POWDER 15GM TOP SCH
[~2024-06-30 15:12] MED LIST changes: +CIPR-273 PO; -SULF800T23 PO
[2024-06-30 15:40] VITALS: PULSE 75; RESP 16; O2SAT 94
[2024-06-30 16:06] LABS: Basophils # (auto) 0 10 ^3/uL (0-0.2); Basophils % (auto) 0.3 % (0.0-2.0); Eosinophils # (auto) 0.1 10 ^3/uL (0-0.8); Eosinophils % (auto) 1.3 % (0.0-7.0); Hematocrit 39.3 % (36.0-46.0); Hemoglobin 13.1 g/dL (12.2-16.2); Lymphocytes # (auto) 0.7 10 ^3/uL (0.4-5.4); Lymphocytes % (auto) 9.5 % (10.0-50.0); Mean Corpuscular Hemoglobin 29.2 pg (28.0-32.0); Mean Corpuscular Hgb Conc. 33.5 g/dL (32.0-36.0); Mean Corpuscular Volume 87.3 fL (80.0-100.0); Monocytes # (auto) 0.6 10 ^3/uL (0-1.3); Monocytes % (auto) 9.2 % (0.0-12.0); Neutrophils # (auto) 5.6 10 ^3/uL (1.6-8.6); Neutrophils % (auto) 79.7 % (37.0-80.0); Nucleated Red Blood Cells % 0.1 %; Platelet Count (auto) 145 10^3/uL (140-450); Red Cell Distribution Width 17.8 % (11.8-14.3)
[2024-06-30 16:27] LABS: Alanine Aminotransferase 13 U/L (7-40); Albumin 4.1 g/dL (3.2-4.8); Alkaline Phosphatase 101 U/L (46-116); Anion Gap 7 (5-15); Aspartate Aminotransferase 34 U/L (13-40); BUN/Creatinine Ratio 23.2 (10.0-20.0); Bilirubin, Total 0.4 mg/dL (0.2-1.0); Blood Urea Nitrogen 22 mg/dL (9-23); Calcium 9.8 mg/dL (8.7-10.4); Carbon Dioxide 26 mmol/L (20-31); Chloride 104 mmol/L (98-107); Creatine Kinase IFCC 39 U/L (34-145); Glucose 173 mg/dL (74-106); Potassium 4.2 mmol/L (3.5-5.1); Sodium 137 mmol/L (136-145); Total Protein 6.6 g/dL (5.7-8.2)
--- NOTE | 2024-06-30 16:32 | DVH ---
EXAM: CT HEAD WITHOUT CONTRAST HISTORY: fall, HALE and rib injury COMPARISON: None TECHNIQUE: Axial images were obtained and reformatted in coronal and sagittal planes. All CT scans at this medical facility are performed using dose modulation techniques as appropriate t o a performed exam including the following: Automated exposure control was utilized; adjustment of th e MA and/or KV according to patient size; and use of iterative reconstruction technique. CT Dose: CTDI volume is 53.99 mGy. Dose-length product is 863.9 mGy*cm FINDINGS: Supratentorial Region: No evidence for large acute territorial ischemia. No intracranial hemorrhage is noted. Confluent white matter hypoattenuating foci are noted bilaterally, which typically reflect chronic microvascular ischemic changes. Posterior Fossa: No acute abnormality. Brainstem: Unremarkable. Sellar/Suprasellar Region: Unremarkable. Ventricles, Cisterns, Sulci: Age-appropriate. Orbits: Unremarkable. Paranasal Sinuses: Unremarkable. Mastoid Air Cells: Unremarkable. Vasculature: Intracranial arterial calcified plaque formation noted. Bones/Soft Tissues: No acute abnormality. Other: None. IMPRESSION: 1. No acute intracranial process.
--- NOTE | 2024-06-30 16:58 | DVH ---
History: fall, HALE and rib injury Comparison Study: None available at time of dictation. TECHNIQUE: Multidetector CT of the chest, abdomen and pelvis was performed from lower neck to pubic s ymphysis without the use of intravenous contrast. Axial, coronal and sagittal multiplanar reformats w ere performed by the technologist on a separate workstation. Radiation Dose Information: CT Dose: CTDI volume is 20.99 mGy. Dose-length product is 1544.82 mGy*cm FINDINGS: Lower neck: Normal thyroid. Pacemaker in place from the left with tip of the catheter in the right ve ntricle. Lungs: No focal consolidation, suspicious pulmonary nodules or pulmonary masses. Heart/Vascular Structures: Normal heart size. Scattered coronary artery calcifications. Lymph Nodes: No adenopathy. Pleura: No pleural effusion or significant pneumothorax. Liver: The liver is normal in size. Non-contrast appearance of liver. Gallbladder and Biliary Tree: Unremarkable. Spleen: Unremarkable. Pancreas: Unremarkable. Adrenal Glands: Unremarkable. Kidneys: Multiple bilateral renal calculi no hydronephrosis. Bladder: Unremarkable. Bowel: No bowel wall thickening or dilatation. 8-9 cm stool-filled rectosigmoid colon The appendix is not visualized; however, no secondary findings of acute appendicitis identified. Peritoneum: No ascites or pneumoperitoneum. Lymphadenopathy: No enlarged lymph nodes. Vasculature: The visualized abdominal aorta is normal in size and caliber. Evaluation of the vascular structures is limited due to lack of intravenous contrast. Pelvic Organs: Unremarkable. Musculoskeletal: No acute osseous abnormality. Fracture through the greater trochanter of the proxima l left femur intertrochanteric fractureand the left proximal femur. imaged. Soft tissues: Unremarkable. IMPRESSION: 1. No infiltrates effusions or pneumothorax. 2. No displaced rib fractures. 3. Displaced fracture intertrochanteric fracture filled left proximal femur with fracture through th e greater trochanter. 4. Scattered coronary artery calcifications. 5. Possible fecal impaction with 8-9 cm stool-filled rectosigmoid colon. 6. Grade 1 anterior spondylolisthesis L4-5 pedicle screws and rods in place at L4-5. All CT scans at this medical facility are performed using dose modulation techniques as appropriate t o a performed exam including the following:Automated exposure control was utilized; adjustment of the MA and/or KV according to patient size; and use of iterative reconstruction technique.
--- NOTE | 2024-06-30 17:24 | ED.PDOC ---
Rani. trauma (HPI) HPI Comments HPI: Poor Historian. 88-year-old female brought in by ambulance from home status post mechanical fall from a standing position at home. Her legs gave out on her. She typically ambulates with a walker which she was using at the time of the fall. Patient fell to her left side and complains of left rib pain and left hip pain. Patient was unable to ambulate secondary to pain. Patient is not on blood thinners. Pre-hospital course vital signs were stable. Patient has also suffered a left temporal forehead laceration but denies any headache or any other neurological deficits. Past Medcial History: Past Surgical History: REVIEW OF SYSTEMS: CONSTITUTIONAL: Denies acute: fever, diaphoresis, chills, generalized weakness. HEAD: Denies acute: headache, photophobia Eyes: Denies acute: Double vision, vision loss, eye pain, eye discharge. EARS: Denies acute: tinnitus, hearing loss, ear discharge, ear pain, THROAT: Denies acute: sore throat, swelling, difficulty swallowing , pain with swallowing, change in voice. NECK: Denies acute: neck pain, neck swelling, stiff neck. HEART: Denies acute : palpitations, LUNGS: Denies acute: SOB, wheezing, cough, hemoptysis ABDOMEN: Denies acute: abdominal pain, Nausea, Vomiting, diarrhea, melena , hematemesis, hematochezia SKIN: Denies acute: rash, redness, lesions, itchiness. EXTREMITIES: Denies acute: calf pain, numbness, tingling, weakness, Denies acute: Low back pain. Neuro: Denies acute: focal neurological deficit, motor or sensory focal neurological deficit, tremors, seizure like activity, confusion, dizziness, change in mental status, loss of bowel or bladder function, cauda equina like symptoms. : Denies acute: dysuria, hematuria, flank pain, increase in urinary frequency. PSYCH: Denies acute: hallucination, suicidal ideation, homicidal ideation. FEMALE: Denies acute: abnormal vaginal bleeding, foul odor, unusual discharge. PHYSICAL EXAM: General: no acute distress, awake and alert. Head: normocephalic, atraumatic. Neck: supple, trachea is midline, no swelling. Throat: Normal phonation. Eyes:, no erythema, no purulent discharge, no proptosis, no icterus. Heart: regular rate, regular rhythm, no significant murmur appreciated. Lungs: no apparent respiratory distress, Able to speak in full sentences. No wheezing, no rhonchi, no crackles. No stridors Clear to auscultation bilaterally. Abdomen: non tender to palpation, non distended, soft, no guarding, no rebound, + bowel sounds. Pelvic rocking causes some left hip pain. Decreased range of motion of bilateral lower extremities on the left side in particular due to left hip pain. Palpation of the left chest wall reveals left-sided ribcage tenderness to palpa tion without appreciated crepitus or swelling or erythema or contusion. Neuro: Awake, Alert, oriented to name, self, situation, follows commands GCS=15. Speech is normal. Skin: no petechia, no purpura, no cyanosis, non-pale, not jaundice. Lower extremities: --trace bilateral - Pitting edema no deformity, no focal swelling, no calf TTP. Makes eye contact. moves all four extremities. Face: no apparent facial droop. No nuchal rigidity, Kernig's sign, Brudzinski's sign, no meningeal signs. Cervical spine: Palpation of the posterior midline of the cervical spine reveals no focal swelling, erythema, focal tenderness to palpation. Patient has normal range of motion. Chief Complaint: Fall Injury Time Seen by MD: 15:29 Primary Care Provider: UNKNOWN Reviewed notes: Nurses Notes, Medications, Allergies Allergies: Coded Allergies: Clonidine (Verified Allergy, Severe, Bradycardia, 02/16/21) Methylprednisolone (Unverified Allergy, Severe, Throat closes up, 02/16/21) Morphine (Unverified Allergy, Severe, Anaphylaxis, 02/16/21) Penicillins (Verified Allergy, Severe, SOB, rash, 02/16/21) Home Meds Active Scripts Ciprofloxacin Hcl (Cipro) 250 Mg Tab, 250 MG PO BID, #10 TAB Prov:RAY JOHNSON MD 08/22/23 Potassium Chloride (Potassium Chloride Sr) 8 Meq Tab, 8 MEQ PO DAILY, #90 TAB Prov:RAY JOHNSON MD 01/24/23 Furosemide (Furosemide) 40 Mg Tab, 1 TAB PO DAILY, #90 TAB Prov:ARY JOHNSON MD 01/24/23 Metoprolol Succinate (Toprol Xl) 25 Mg Tab, 1 TAB PO DAILY, #90 TAB 1 Refill Prov:RAY JOHNSON MD 01/24/23 Allopurinol (ZYLOPRIM TABLET) 100 Mg Tb, 1 TAB PO DAILY for 5 Days, #5 TAB 5 Refills Prov:MANJU WARREN Sue COURSE INSTRUCTOR 10/14/21 Reported Medications Colchicine (COLCRYS TABLET) 0.6 Mg Tb, 0.6 MG PO DAILY PRN for prn, TAB 01/23/23 Apixaban Base (ELIQUIS) 5 Mg Tab, 5 MG PO BID, TAB 02/16/21 Levothyroxine Sodium (Levothyroxine Sodium) 25 Mcg Tab, 25 MCG PO DAILY, TAB 02/16/21 Information Source: Patient Mode of Arrival: EMS Past Medical History PAST MEDICAL HISTORY: AFIB, Arthritis, Asthma, Cancer, CKF, COPD, HTN, Thyroid Surgical History: Hernia Repair, Hysterectomy, Pacemaker, Tonsillectomy 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 Was a procedure done?: Yes Sedation Sedation?: No Laceration Repair : Location Left forehead, above the L eyebrow Length 2cm Laceration Repair Prep: Saline Informed consent obtained: Yes Notes 6 Steri Strips were applied. Care instructions given to the patient. The wound was cleansed and irrigated earlier. X-Ray, Labs, Meds, VS Vital Signs Date Time Temp Pulse Resp B/P (MAP) Pulse Ox O2 Delivery O2 Flow Rate FiO2 06/30/24 20:00 79 06/30/24 19:30 97.7 70 13 130/66 (87) 95 97.7 06/30/24 19:30 74 10 96 Room Air* 0 21 06/30/24 17:35 75 14 125/65 (85) 94 06/30/24 15:58 67 06/30/24 15:40 75 16 94 Room Air* 0 21 06/30/24 15:15 98.7 71 20 134/82 (99) 96 06/30/24 15:15 98.7 71 20 134/82 (99) 96 98.7 Lab Test 06/30/24 15:44 Range/Units White Blood Count 7.0 4.4-10.8 10^3/uL Red Blood Count 4.50 4.0-5.20 10^6/uL Hemoglobin 13.1 12.2-16.2 g/dL Hematocrit 39.3 36.0-46.0 % Mean Corpuscular Volume 87.3 80.0-100.0 fL Mean Corpuscular Hemoglobin 29.2 28.0-32.0 pg Mean Corpuscular Hemoglobin Concent 33.5 32.0-36.0 g/dL Red Cell Distribution Width 17.8 H 11.8-14.3 % Platelet Count 145 140-450 10^3/uL Mean Platelet Volume 7.7 6.9-10.8 fL Neutrophils (%) (Auto) 79.7 37.0-80.0 % Lymphocytes (%) (Auto) 9.5 L 10.0-50.0 % Monocytes (%) (Auto) 9.2 0.0-12.0 % Eosinophils (%) (Auto) 1.3 0.0-7.0 % Basophils (%) (Auto) 0.3 0.0-2.0 % Neutrophils # (Auto) 5.6 1.6-8.6 10 ^3/uL Lymphocytes # (Auto) 0.7 0.4-5.4 10 ^3/uL Monocytes # (Auto) 0.6 0-1.3 10 ^3/uL Eosinophils # (Auto) 0.1 0-0.8 10 ^3/uL Basophils # (Auto) 0 0-0.2 10 ^3/uL Nucleated Red Blood Cells 0.1 % Sodium Level 137 136-145 mmol/L Potassium Level 4.2 3.5-5.1 mmol/L Chloride Level 104 98-107 mmol/L Carbon Dioxide Level 26 20-31 mmol/L Anion Gap 7 5-15 Blood Urea Nitrogen 22 9-23 mg/dL Creatinine 0.95 0.550-1.02 mg/dL Glomerular Filtration Rate Calc 58 >90 mL/min BUN/Creatinine Ratio 23.2 H 10.0-20.0 Serum Glucose 173 H 74-106 mg/dL Calcium Level 9.8 8.7-10.4 mg/dL Total Bilirubin 0.4 0.2-1.0 mg/dL Aspartate Amino Transferase (AST) 34 13-40 U/L Alanine Aminotransferase (ALT) 13 7-40 U/L Alkaline Phosphatase 101 46-116 U/L Creatine Kinase 39 34-145 U/L Total Protein 6.6 5.7-8.2 g/dL Albumin 4.1 3.2-4.8 g/dL Current Medications Medications (Trade) Dose Ordered Sig/Nubia Route Start Time Stop Time Status Last Admin Acetaminophen/ Hydrocodone Bitart ([place] 5/325MG Tab) 1 tab ONCE ONCE PO 06/30/24 18:15 06/30/24 18:16 DC 06/30/24 18:25 [place] [id number] Ph: [phone] DIAGNOSTIC IMAGING Diagnostic Imaging Report : [id number] Signed PATIENT: RAUDEL ROB ACCT: [id number] UNIT: [id number] : 1935 LOC: ER ROOM / BED: / AGE / SEX: 88 / F ADM STATUS: REG ER SERVICE 1529 ORDERING PHYSICIAN: PALMIRA GAMBLE DO PROCEDURE(s): CTCAP - CHST AB PEL WO CON-NO IV/ORAL REASON: fall, HALE and rib injury ORDER NUMBER(s): [id number], ACCESSION NUMBER(s): [id number] History: fall, HALE and rib injury Comparison Study: None available at time of dictation. TECHNIQUE: Multidetector CT of the chest, abdomen and pelvis was performed from lower neck to pubic symphysis without the use of intravenous contrast. Axial, coronal and sagittal multiplanar reformats were performed by the technologist on a separate workstation. Radiation Dose Information: CT Dose: CTDI volume is 20.99 mGy. Dose-length product is 1544.82 mGy*cm FINDINGS: Lower neck: Normal thyroid. Pacemaker in place from the left with tip of the catheter in the right ventricle. Lungs: No focal consolidation, suspicious pulmonary nodules or pulmonary masses. Heart/Vascular Structures: Normal heart size. Scattered coronary artery calcifications. Lymph Nodes: No adenopathy. Pleura: No pleural effusion or significant pneumothorax. Liver: The liver is normal in size. Non-contrast appearance of liver. Gallbladder and Biliary Tree: Unremarkable. Spleen: Unremarkable. Pancreas: Unremarkable. Adrenal Glands: Unremarkable. Kidneys: Multiple bilateral renal calculi no hydronephrosis. Bladder: Unremarkable. Bowel: No bowel wall thickening or dilatation. 8-9 cm stool-filled rectosigmoid colon The appendix is not visualized; however, no secondary findings of acute appendicitis identified. Peritoneum: No ascites or pneumoperitoneum. Lymphadenopathy: No enlarged lymph nodes. Vasculature: The visualized abdominal aorta is normal in size and caliber. Evaluation of the vascular structures is limited due to lack of intravenous contrast. Pelvic Organs: Unremarkable. Musculoskeletal: No acute osseous abnormality. Fracture through the greater trochanter of the proximal left femur intertrochanteric fractureand the left proximal femur. imaged. Soft tissues: Unremarkable. IMPRESSION: 1. No infiltrates effusions or pneumothorax. 2. No displaced rib fractures. 3. Displaced fracture intertrochanteric fracture filled left proximal femur with fracture through the greater trochanter. 4. Scattered coronary artery calcifications. 5. Possible fecal impaction with 8-9 cm stool-filled rectosigmoid colon. 6. Grade 1 anterior spondylolisthesis L4-5 pedicle screws and rods in place at L4-5. All CT scans at this medical facility are performed using dose modulation techniques as appropriate to a performed exam including the following:Automated exposure control was utilized; adjustment of the MA and/or KV according to patient size; and use of iterative reconstruction technique. ATED BY: JANAY MARCH Jr., DO DICTATED DATE/TIME: 06/30/241655 SIGNED BY: JANAY MARCH Jr., DO SIGNED DATE/TIME: 06/30/241655 CC: [place] [address] Ph: [phone] DIAGNOSTIC IMAGING Diagnostic Imaging Report : [id number] Signed PATIENT: RAUDEL ROB ACCT: [id number] UNIT: [id number] : 1935 LOC: ER ROOM / BED: / AGE / SEX: 88 / F ADM STATUS: REG ER SERVICE 1529 ORDERING PHYSICIAN: PALMIRA GAMBLE DO PROCEDURE(s): CTCAP - CHST AB PEL WO CON-NO IV/ORAL REASON: fall, HALE and rib injury ORDER NUMBER(s): [id number], ACCESSION NUMBER(s): [id number] History: fall, HALE and rib injury Comparison Study: None available at time of dictation. TECHNIQUE: Multidetector CT of the chest, abdomen and pelvis was performed from lower neck to pubic symphysis without the use of intravenous contrast. Axial, coronal and sagittal multiplanar reformats were performed by the technologist on a separate workstation. Radiation Dose Information: CT Dose: CTDI volume is 20.99 mGy. Dose-length product is 1544.82 mGy*cm FINDINGS: Lower neck: Normal thyroid. Pacemaker in place from the left with tip of the catheter in the right ventricle. Lungs: No focal consolidation, suspicious pulmonary nodules or pulmonary masses. Heart/Vascular Structures: Normal heart size. Scattered coronary artery calcifications. Lymph Nodes: No adenopathy. Pleura: No pleural effusion or significant pneumothorax. Liver: The liver is normal in size. Non-contrast appearance of liver. Gallbladder and Biliary Tree: Unremarkable. Spleen: Unremarkable. Pancreas: Unremarkable. Adrenal Glands: Unremarkable. Kidneys: Multiple bilateral renal calculi no hydronephrosis. Bladder: Unremarkable. Bowel: No bowel wall thickening or dilatation. 8-9 cm stool-filled rectosigmoid colon The appendix is not visualized; however, no secondary findings of acute appendicitis identified. Peritoneum: No ascites or pneumoperitoneum. Lymphadenopathy: No enlarged lymph nodes. Vasculature: The visualized abdominal aorta is normal in size and caliber. Evaluation of the vascular structures is limited due to lack of intravenous contrast. Pelvic Organs: Unremarkable. Musculoskeletal: No acute osseous abnormality. Fracture through the greater trochanter of the proximal left femur intertrochanteric fractureand the left proximal femur. imaged. Soft tissues: Unremarkable. IMPRESSION: 1. No infiltrates effusions or pneumothorax. 2. No displaced rib fractures. 3. Displaced fracture intertrochanteric fracture filled left proximal femur with fracture through the greater trochanter. 4. Scattered coronary artery calcifications. 5. Possible fecal impaction with 8-9 cm stool-filled rectosigmoid colon. 6. Grade 1 anterior spondylolisthesis L4-5 pedicle screws and rods in place at L4-5. All CT scans at this medical facility are performed using dose modulation techniques as appropriate to a performed exam including the following:Automated exposure control was utilized; adjustment of the MA and/or KV according to patient size; and use of iterative reconstruction technique. ATED BY: JANAY MARCH Jr., DO DICTATED DATE/TIME: 06/30/241655 SIGNED BY: JANAY MARCH Jr., DO SIGNED DATE/TIME: 06/30/241655 CC: [place] [id number] Ph: [phone] DIAGNOSTIC IMAGING Diagnostic Imaging Report : [id number] Signed PATIENT: RAUDEL ROB ACCT: [id number] UNIT: [id number] : 1935 LOC: ER ROOM / BED: / AGE / SEX: 88 / F ADM STATUS: REG ER SERVICE 1529 ORDERING PHYSICIAN: PALMIRA GAMBLE DO PROCEDURE(s): HWOCT - HEAD WITHOUT CONTRAST REASON: fall, HALE and rib injury ORDER NUMBER(s): [id number], ACCESSION NUMBER(s): [id number] EXAM: CT HEAD WITHOUT CONTRAST HISTORY: fall, HALE and rib injury COMPARISON: None TECHNIQUE: Axial images were obtained and reformatted in coronal and sagittal planes. All CT scans at this medical facility are performed using dose modulation techniques as appropriate to a performed exam including the following: Automated exposure control was utilized; adjustment of the MA and/or KV according to patient size; and use of iterative reconstruction technique. CT Dose: CTDI volume is 53.99 mGy. Dose-length product is 863.9 mGy*cm FINDINGS: Supratentorial Region: No evidence for large acute territorial ischemia. No intracranial hemorrhage is noted. Confluent white matter hypoattenuating foci are noted bilaterally, which typically reflect chronic microvascular ischemic changes. Posterior Fossa: No acute abnormality. Brainstem: Unremarkable. Sellar/Suprasellar Region: Unremarkable. Ventricles, Cisterns, Sulci: Age-appropriate. Orbits: Unremarkable. Paranasal Sinuses: Unremarkable. Mastoid Air Cells: Unremarkable. Vasculature: Intracranial arterial calcified plaque formation noted. Bones/Soft Tissues: No acute abnormality. Other: None. IMPRESSION: 1. No acute intracranial process. ATED BY: CHYNA EDMONDS MD DICTATED DATE/TIME: 06/30/241629 SIGNED BY: CHYNA EDMONDS MD SIGNED DATE/TIME: 06/30/24 1630 CC: [address] [id number] Ph: [phone] DIAGNOSTIC IMAGING Diagnostic Imaging Report : [id number] Signed PATIENT: RAUDEL ROB ACCT: [id number] UNIT: [id number] : 1935 LOC: [facility] ROOM / BED: [facility] / B AGE / SEX: 88 / F ADM STATUS: ADM IN SERVICE 3 ORDERING PHYSICIAN: ERMA PATIÑO PROCEDURE(s): CXR1 - CHEST XRAY 1 VIEW REASON: procedure this AM ORDER NUMBER(s): [id number], ACCESSION NUMBER(s): [id number] CHEST RADIOGRAPH Indication:procedure this AM Technique: Single frontal view of the chest was obtained Comparison: XY CHEST PORTABLE on DOS: 05/03/23, XY CHEST PORTABLE on DOS: 01/21/23, XY CHEST PORTABLE on DOS: 01/09/23 FINDINGS: Lines and Tubes: Left pacemaker Lungs: No focal consolidation. Pleura: No effusion. No pneumothorax. Cardiomediastinal contours: Unremarkable Bones: No acute osseous abnormality. IMPRESSION: No acute cardiopulmonary disease. ATED BY: SHAHID JACKSON MD DICTATED DATE/TIME: 07/01/24716 SIGNED BY: SHAHID JACKSON MD SIGNED DATE/TIME: 07/01/24716 CC: Time of 1ST Reevaluation: 17:30 Reevaluation 1ST: Improved Patient Education/Counseling: Diagnosis, Treatment Family Education/Counseling: No Family Present Comments Patient presented with the above HPI.--fall/jaw----workup was initiated. patient was found with the above mentioned diagnosis. Patient was given: Pain medication, [place] catheter was placed because patient was nonambulatory due to left hip fracture. Patient ED course and VS have been stabilized. Patient has been reassessed in the ED and remained in a stable condition. Pertinent incidental findings were discussed with the patient and/or family. Patient/family voices understanding and is agreeable with plan. Patient has been observed in the ED adequate length of time to insure improvement/stability. patient was admitted to the medicine team for further evaluation and treatment of their presentation. Consult was placed for Orthopedic surgery. Patient is neurovascularly intact in the affected extremity. All the reports of any imaging studies that were ordered by myself were reviewed by myself. Departure 1 Departure Time of Disposition: 17:23 Impression: Primary Impression: Hip fracture, left Additional Impressions: Closed head injury Fall Forehead laceration Contusion of face Disposition: ADMITTED INPATIENT Admit to: Tele Condition: Guarded Discharged With: Self Critical Care Note Critical Care Time?: PALMIRA Lange DO Jun 30, 2024 17:24
[2024-06-30] MEDS: HYDROcodone-ACET 5/325MG TAB PO ONE (18:25)
[2024-06-30 19:30] VITALS: PULSE 74; RESP 10; O2SAT 96
[2024-06-30] MEDS ORDERED: ONDANSETRON HCL 4 MG/2 ML VIAL IV PRN (20:45)
[2024-06-30] MEDS: HYDROcodone-ACET 5/325MG TAB PO PRN (21:54)
[2024-06-30 22:05] LABS: INR 1.1 (0.9-1.15); Partial Thromboplastin Time 26.9 SEC (24.5-34.5); Prothrombin Time 11.6 sec (9.3-11.8)
[2024-06-30 22:32] VITALS: BP 123/60; PULSE 75; RESP 19; TEMP 98.3; O2SAT 93
[2024-06-30 22:33] LABS: Urine Bacteria None Seen /hpf (None Seen); Urine WBC None Seen /hpf (0 - 5)
[2024-06-30 22:57] LABS: Urine Blood Negative /uL (Negative); Urine Clarity Clear (Clear); Urine Color Yellow (Yellow); Urine Protein, UAD Negative (Negative); Urine Specific Gravity 1.025 (1.001-1.035); Urine Urobilinogen Normal (Negative)
[2024-06-30] MEDS: MONTELUKAST SODIUM 10 MG TAB PO SCH (23:44)
[2024-06-30] MEDS: ACETAMINOPHEN 325 MG TAB PO PRN (23:55)
[2024-07-01] VITALS (9 sets, daily range): BP systolic 99–142; BP diastolic 42–73; PULSE 72–92; RESP 12–18; TEMP 97.7–98.8; O2SAT 92–98
--- NOTE | 2024-07-01 00:22 | DVHHP2 ---
History of Present Illness Reason for Visit: Left hip pain History of Present Illness 88-year-old female presents for evaluation of left hip pain. Patient reports using her walker at home to ambulate when her legs gave out. She fell landing on her left side. She states being unable to bear weight on her left lower extremity. Also has a laceration to her left temporal. Denies cardiac or respiratory symptoms. Past Medical History Hypertension, COPD, hypothyroid in atrial fibrillation Past Surgical History Denies Family History Noncontributory Smoke: No ALCOHOL: none Drugs: None Lives: with Family Review of Systems Review of Systems Review of systems are currently negative otherwise addressed in HPI. Allergies: Coded Allergies: Clonidine (Verified Allergy, Severe, Bradycardia, 02/16/21) Methylprednisolone (Unverified Allergy, Severe, Throat closes up, 02/16/21) Morphine (Unverified Allergy, Severe, Anaphylaxis, 02/16/21) Penicillins (Verified Allergy, Severe, SOB, rash, 02/16/21) Medications Current Medications Medications Dose Ordered Sig/Nubia Route Start Time Stop Time Status Last Admin Dose Admin Levothyroxine Sodium 25 mcg QAM@0600 PO 07/01/24 06:00 Montelukast Sodium 10 mg HS PO 06/30/24 22:00 06/30/24 23:44 10 MG Allopurinol 300 mg DAILY PO 07/01/24 10:00 Metoprolol Succinate 25 mg DAILY PO 07/01/24 10:00 Acetaminophen/ Hydrocodone Bitart 1 tab Q4HP PRN PO 06/30/24 20:45 06/30/24 21:54 1 TAB Ondansetron HCl 4 mg Q4HP PRN IV 06/30/24 20:45 Acetaminophen 650 mg Q6HP PRN PO 06/30/24 20:45 06/30/24 23:55 650 MG Nystatin 1 applic BID TOP 06/30/24 00:00 Exam Vital Signs Vital Signs Date Time Temp Pulse Resp B/P (MAP) Pulse Ox O2 Delivery O2 Flow Rate FiO2 06/30/24 20:00 79 06/30/24 19:30 97.7 13 130/66 (87) 95 97.7 06/30/24 15:40 Room Air* 0 21 Exam Gen: 88-year-old female in mild distress Skin: Warm, dry, normal color and texture, left temporal superficial laceration HEENT: Normocephalic atraumatic, mucous membranes moist and pink. Neck: Cervical and supraclavicular nodes normal without enlargement, trachea is midline, thyroid gland is normal without masses. Pulmonary: Clear to auscultation and percussion bilaterally. Cardiac: Regular rate and rhythm. No murmur Abdomen: Soft, nontender, nondistended, bowel sounds present all 4 quadrants, no guarding, no rigidity, no organomegaly. Extremities: No cyanosis, clubbing, left lower extremity with limited range of motion Neuro: Cranial nerves II through XII grossly intact, normal affect and speech, no focal motor deficits. Labs/Xrays ORDERING PHYSICIAN: PALMIRA GAMBLE DO PROCEDURE(s): CTCAP - CHST AB PEL WO CON-NO IV/ORAL REASON: fall, HALE and rib injury ORDER NUMBER(s): [id number], ACCESSION NUMBER(s): [id number] History: fall, HALE and rib injury Comparison Study: None available at time of dictation. TECHNIQUE: Multidetector CT of the chest, abdomen and pelvis was performed from lower neck to pubic symphysis without the use of intravenous contrast. Axial, coronal and sagittal multiplanar reformats were performed by the technologist on a separate workstation. Radiation Dose Information: CT Dose: CTDI volume is 20.99 mGy. Dose-length product is 1544.82 mGy*cm FINDINGS: Lower neck: Normal thyroid. Pacemaker in place from the left with tip of the catheter in the right ventricle. Lungs: No focal consolidation, suspicious pulmonary nodules or pulmonary masses. Heart/Vascular Structures: Normal heart size. Scattered coronary artery calcifications. Lymph Nodes: No adenopathy. Pleura: No pleural effusion or significant pneumothorax. Liver: The liver is normal in size. Non-contrast appearance of liver. Gallbladder and Biliary Tree: Unremarkable. Spleen: Unremarkable. Pancreas: Unremarkable. Adrenal Glands: Unremarkable. Kidneys: Multiple bilateral renal calculi no hydronephrosis. Bladder: Unremarkable. Bowel: No bowel wall thickening or dilatation. 8-9 cm stool-filled rectosigmoid colon The appendix is not visualized; however, no secondary findings of acute appendicitis identified. Peritoneum: No ascites or pneumoperitoneum. Lymphadenopathy: No enlarged lymph nodes. Vasculature: The visualized abdominal aorta is normal in size and caliber. Evaluation of the vascular structures is limited due to lack of intravenous contrast. Pelvic Organs: Unremarkable. Musculoskeletal: No acute osseous abnormality. Fracture through the greater trochanter of the proximal left femur intertrochanteric fractureand the left proximal femur. imaged. Soft tissues: Unremarkable. IMPRESSION: 1. No infiltrates effusions or pneumothorax. 2. No displaced rib fractures. 3. Displaced fracture intertrochanteric fracture filled left proximal femur with fracture through the greater trochanter. 4. Scattered coronary artery calcifications. 5. Possible fecal impaction with 8-9 cm stool-filled rectosigmoid colon. 6. Grade 1 anterior spondylolisthesis L4-5 pedicle screws and rods in place at L4-5. All CT scans at this medical facility are performed using dose modulation techniques as appropriate to a performed exam including the following:Automated exposure control was utilized; adjustment of the MA and/or KV according to patient size; and use of iterative reconstruction technique. RING PHYSICIAN: PALMIRA GAMBLE DO PROCEDURE(s): HWOCT - HEAD WITHOUT CONTRAST REASON: fall, HALE and rib injury ORDER NUMBER(s): [id number], ACCESSION NUMBER(s): [id number] EXAM: CT HEAD WITHOUT CONTRAST HISTORY: fall, HALE and rib injury COMPARISON: None TECHNIQUE: Axial images were obtained and reformatted in coronal and sagittal planes. All CT scans at this medical facility are performed using dose modulation techniques as appropriate to a performed exam including the following: Automated exposure control was utilized; adjustment of the MA and/or KV according to patient size; and use of iterative reconstruction technique. CT Dose: CTDI volume is 53.99 mGy. Dose-length product is 863.9 mGy*cm FINDINGS: Supratentorial Region: No evidence for large acute territorial ischemia. No intracranial hemorrhage is noted. Confluent white matter hypoattenuating foci are noted bilaterally, which typically reflect chronic microvascular ischemic changes. Posterior Fossa: No acute abnormality. Brainstem: Unremarkable. Sellar/Suprasellar Region: Unremarkable. Ventricles, Cisterns, Sulci: Age-appropriate. Orbits: Unremarkable. Paranasal Sinuses: Unremarkable. Mastoid Air Cells: Unremarkable. Vasculature: Intracranial arterial calcified plaque formation noted. Bones/Soft Tissues: No acute abnormality. Other: None. IMPRESSION: 1. No acute intracranial process. Labs Test 06/30/24 22:20 06/30/24 21:35 06/30/24 15:44 Range/Units Urine Color Yellow Yellow Urine Clarity Clear Clear Urine pH 6.0 5.0-9.0 Urine Specific [place] 1.025 1.001-1.035 Urine Protein Negative Negative Urine Ketones Negative Negative Urine Blood Negative Negative /uL Urine Nitrite Negative Negative Urine Bilirubin Negative Negative Urine Urobilinogen Normal Negative mg/dL Urine Leukocyte Esterase Negative Negative /uL Urine RBC 1 0 - 4 /hpf Urine WBC None seen 0 - 5 /hpf Urine Squamous Epithelial Cells Few <5 /hpf Urine Bacteria None seen None Seen /hpf Urine Glucose Normal Normal mg/dL Prothrombin Time 11.6 9.3-11.8 sec Prothrombin Time INR 1.10 0.9-1.15 Activated Partial Thromboplast Time 26.9 24.5-34.5 SEC White Blood Count 7.0 4.4-10.8 10^3/uL Red Blood Count 4.50 4.0-5.20 10^6/uL Hemoglobin 13.1 12.2-16.2 g/dL Hematocrit 39.3 36.0-46.0 % Mean Corpuscular Volume 87.3 80.0-100.0 fL Mean Corpuscular Hemoglobin 29.2 28.0-32.0 pg Mean Corpuscular Hemoglobin Concent 33.5 32.0-36.0 g/dL Red Cell Distribution Width 17.8 H 11.8-14.3 % Platelet Count 145 140-450 10^3/uL Mean Platelet Volume 7.7 6.9-10.8 fL Neutrophils (%) (Auto) 79.7 37.0-80.0 % Lymphocytes (%) (Auto) 9.5 L 10.0-50.0 % Monocytes (%) (Auto) 9.2 0.0-12.0 % Eosinophils (%) (Auto) 1.3 0.0-7.0 % Basophils (%) (Auto) 0.3 0.0-2.0 % Neutrophils # (Auto) 5.6 1.6-8.6 10 ^3/uL Lymphocytes # (Auto) 0.7 0.4-5.4 10 ^3/uL Monocytes # (Auto) 0.6 0-1.3 10 ^3/uL Eosinophils # (Auto) 0.1 0-0.8 10 ^3/uL Basophils # (Auto) 0 0-0.2 10 ^3/uL Nucleated Red Blood Cells 0.1 % Sodium Level 137 136-145 mmol/L Potassium Level 4.2 3.5-5.1 mmol/L Chloride Level 104 98-107 mmol/L Carbon Dioxide Level 26 20-31 mmol/L Anion Gap 7 5-15 Blood Urea Nitrogen 22 9-23 mg/dL Creatinine 0.95 0.550-1.02 mg/dL Glomerular Filtration Rate Calc 58 >90 mL/min BUN/Creatinine Ratio 23.2 H 10.0-20.0 Serum Glucose 173 H 74-106 mg/dL Calcium Level 9.8 8.7-10.4 mg/dL Total Bilirubin 0.4 0.2-1.0 mg/dL Aspartate Amino Transferase (AST) 34 13-40 U/L Alanine Aminotransferase (ALT) 13 7-40 U/L Alkaline Phosphatase 101 46-116 U/L Creatine Kinase 39 34-145 U/L Total Protein 6.6 5.7-8.2 g/dL Albumin 4.1 3.2-4.8 g/dL Assessment/Plan Assessment/Plan Assessment Left intertrochanteric fracture Hypertension Status post mechanical fall History of atrial fibrillation Left frontal superficial laceration Plan Admit the patient to [facility] to the hospitalist Orthopedic consultation, placed by ER provider NPO except medications Pain management Continue treatment per orders. Plan discussed with: Patient My Orders Orders - ERMA PATIÑOCNP Procedure Category Date Status Time Levothyroxine Tablet PHA 07/01/24 In Process (Synthroid Tablet) 06:00 Montelukast Tablet PHA 06/30/24 In Process (Singulair Tablet) 22:00 Allopurinol Tablet PHA 07/01/24 In Process (Zyloprim Tablet) 10:00 Metoprolol Xl PHA 07/01/24 In Process Succinate (Toprol Xl) 10:00 Basic Metabolic Panel LAB 07/01/24 Logged 04:00 Admit ADMIT 06/30/24 Transmitted 20:34 Hydrocodone-Acet PHA 06/30/24 In Process 5/325mg Tab ([place] 20:45 Ondansetron Hcl PHA 10/30/24 In Process (Zofran) 20:45 Complete Blood Count LAB 07/01/24 Logged 04:00 Npo (Nothing By DIET 07/01/24 Transmitted Mouth) Diet Breakfast Condition: Stable JIMMY 06/30/24 In Process 20:34 Acetaminophen Tablet PHA 06/30/24 In Process (Tylenol Tablet) 20:45 Bedrest With Bathroom JIMMY 06/30/24 In Process Privileg 20:34 Nystatin Powder PHA 06/30/24 In Process (Mycostatin Powder) 00:00 Date of Service: Jun 30, 2024 Billing Provider: ERMA PATIÑO Common Visit Codes: [id number] INP/OBS CARE (HIGH) ERMA PATIÑO Jul 01, 2024 00:22
[2024-07-01] MEDS: LEVOTHYROXINE SODIUM 25 MCG TAB PO SCH (05:21)
[2024-07-01 05:38] LABS: Basophils # (auto) 0 10 ^3/uL (0-0.2); Basophils % (auto) 0.2 % (0.0-2.0); Eosinophils # (auto) 0 10 ^3/uL (0-0.8); Hematocrit 35.9 % (36.0-46.0); Lymphocytes # (auto) 0.6 10 ^3/uL (0.4-5.4); Lymphocytes % (auto) 5.5 % (10.0-50.0); Mean Corpuscular Hgb Conc. 33.5 g/dL (32.0-36.0); Mean Corpuscular Volume 86.7 fL (80.0-100.0); Monocytes # (auto) 0.8 10 ^3/uL (0-1.3); Monocytes % (auto) 7.3 % (0.0-12.0); Platelet Count (auto) 159 10^3/uL (140-450); Red Blood Cells 4.15 10^6/uL (4.0-5.20); Red Cell Distribution Width 17.8 % (11.8-14.3); White Blood Cell 10.4 10^3/uL (4.4-10.8)
[2024-07-01 05:45] LABS: Chloride 100 mmol/L (98-107); Potassium 4.2 mmol/L (3.5-5.1); Sodium 137 mmol/L (136-145)
[2024-07-01 05:46] LABS: Anion Gap 8 (5-15); Calcium 9.7 mg/dL (8.7-10.4); Carbon Dioxide 29 mmol/L (20-31)
[2024-07-01 05:51] LABS: BUN/Creatinine Ratio 23.9 (10.0-20.0); Blood Urea Nitrogen 22 mg/dL (9-23); Glucose 142 mg/dL (74-106)
--- NOTE | 2024-07-01 07:20 | DVH ---
CHEST RADIOGRAPH Indication:procedure this AM Technique: Single frontal view of the chest was obtained Comparison: XY CHEST PORTABLE on DOS: 05/03/23, XY CHEST PORTABLE on DOS: 01/21/23, XY CHEST PORTABLE on DOS: 01/09/23 FINDINGS: Lines and Tubes: Left pacemaker Lungs: No focal consolidation. Pleura: No effusion. No pneumothorax. Cardiomediastinal contours: Unremarkable Bones: No acute osseous abnormality. IMPRESSION: No acute cardiopulmonary disease.
[2024-07-01] MEDS: ALLOPURINOL 100 MG TAB PO SCH (09:23)
[2024-07-01] MEDS: METOPROLOL SUCCINATE XL 50 MG TAB PO SCH (09:24)
--- NOTE | 2024-07-01 11:13 | DVHSR ---
APPROVED REPORT EXAM: LIMITED Two-dimensional and M-mode echocardiogram with Doppler and color Doppler. Blood Pressure: 105/56 mmHg INDICATION Pre-Op RISK FACTORS Obesity: Height: 5' 3", Weight: 169 DIMENSIONS LVDd4.8 (3.8-5.7cm)LA (2D)4.9 (1.9-4.0cm)Aortic Root3.0 (2.0-3.7cm) LVDs3.4 (2.5-4.0cm)LA (MM) (1.9-4.0cm)Aortic Cusp Exc1.1 (1.5-2.0cm) EF (%) 55.0 (55-70%)Rt. Atrium5.8 (1.9-4.0cm)Asc. Aorta cm IVSd1.0 (0.7-1.1cm)RV (D) (1.8-2.4cm) PWd0.8 (0.7-1.1cm) Mitral Valve MitralMitral Stenosis E wave1.30m/sMV Mean GR.mmHg A wave0.50m/sMV Peak GR.mmHg E/A ratio2.62D MVAcm2 Aortic Valve Aortic ValveAortic Stenosis V11.10m/Homero Mean GR.10mmHg V22.10m/Homero Peak GR.19mmHg LVOT Diameter1.9 (1.8-2.4cm)Doppler AVA1.48cm2 AI P 1/2 [id number] Pulmonic Valve V20.90m/s Tricuspid Valve TR Velocity2.70m/s [id number] Other Information Quality : Technically LimitedRhythm : Technically limited study due to body habitus and patient position. Conclusion Normal left ventricular size and dimension. Normal left ventricular systolic function estimated ejec tion fraction of 55%. There is a grade 1 diastolic dysfunction. Normal right ventricular size and dimension. Normal right ventricular systolic function. Slightly i ncreased right ventricular systolic [id number] mm of mercury. Moderately dilated right and left atria. There is moderate aortic valve calcification, there is [id number] aortic valve sclerosis. The mitral valve is thickened there is mitral annular calcification with mild mitral regurgitation. There is a moderate tricuspid valve regurgitation, patient has a pacemaker traversing the tricuspid v alve into the right ventricular cavity. There is mild pulmonary valve regurgitation. No significant pericardial effusion.
--- NOTE | 2024-07-01 11:34 | DVHINCON2 ---
Date Seen: Jul 01, 2024 Referring Physician MD Jass Reason for Consultation Cardiac risk stratification History of Present Illness This is an 88-year-old female patient who presents to the emergency room status post mechanical fall at home. The patient reports that she was walking to an swer her front door when suddenly she slipped and fell, landing face down. She sustained a laceration to her left eyebrow. She immediately noticed excruciating pain to her left hip. She came to the emergency room for further evaluation. Imaging has revealed a displaced intertrochanteric left proximal femur fracture. Cardiology has now been consulted for cardiac risk stratifica tion for possible open reduction internal fixation of the left hip fracture. Initial twelve lead electrocardiogram reveals atrial fibrillation with right bundle branch block. She denies any cardiac symptoms at this time such as chest pain, shortness or breath, or palpitations. Significant past medical history includes atrial fibrillation (on Eliquis), presence of single lead permanent pacemaker (Biotronik), hypertension, asthma, thyroid disease, gout, and obesity. She reports that she sees associate agent insurance sales Dr. Orr in the outpatient setting. Our team was asked to see this patient at this time for a stat consult. Past Medical History Past medical history reviewed. No other significant than mentioned above. Past Surgical History Presence of single lead permanent pacemaker (Biotronik) Family History: Diabetes mellitus G8 MOTHER FH: heart attack G8 FATHER Family History Family history reviewed. Social History Patient has a 20 pack-year history, quit smoking approximately 40 years ago Patient denies any illicit drug use Patient denies any alcohol use Allergies: Coded Allergies: Clonidine (Verified Allergy, Severe, Bradycardia, 02/16/21) Methylprednisolone (Unverified Allergy, Severe, Throat closes up, 02/16/21) Morphine (Unverified Allergy, Severe, Anaphylaxis, 02/16/21) Penicillins (Verified Allergy, Severe, SOB, rash, 02/16/21) Home Meds Active Scripts Ciprofloxacin Hcl (Cipro) 250 Mg Tab, 250 MG PO BID, #10 TAB Prov:RAY JOHNSON MD 08/22/23 Potassium Chloride (Potassium Chloride Sr) 8 Meq Tab, 8 MEQ PO DAILY, #90 TAB Prov:RAY JOHNSON MD 01/24/23 Furosemide (Furosemide) 40 Mg Tab, 1 TAB PO DAILY, #90 TAB Prov:RAY JOHNSON MD 01/24/23 Metoprolol Succinate (Toprol Xl) 25 Mg Tab, 1 TAB PO DAILY, #90 TAB 1 Refill Prov:RAY JOHNSON MD 01/24/23 Allopurinol (ZYLOPRIM TABLET) 100 Mg Tb, 1 TAB PO DAILY for 5 Days, #5 TAB 5 Refills Prov:MANJU WARREN [employer] HELPER 10/14/21 Reported Medications Colchicine (COLCRYS TABLET) 0.6 Mg Tb, 0.6 MG PO DAILY PRN for prn, TAB 01/23/23 Apixaban Base (ELIQUIS) 5 Mg Tab, 5 MG PO BID, TAB 02/16/21 Levothyroxine Sodium (Levothyroxine Sodium) 25 Mcg Tab, 25 MCG PO DAILY, TAB 02/16/21 Home Meds Home medications reviewed. Current Medications Current Medications Medications (Trade) Dose Ordered Sig/Nubia Route PRN Reason Start Time Stop Time Status Last Admin Levothyroxine Sodium (Synthroid Tablet) 25 mcg QAM@0600 PO 07/01/24 06:00 07/01/24 05:21 Montelukast Sodium (Singulair Tablet) 10 mg HS PO 06/30/24 22:00 06/30/24 23:44 Allopurinol (Zyloprim Tablet) 300 mg DAILY PO 07/01/24 10:00 07/01/24 09:23 Metoprolol Succinate (Toprol Xl) 25 mg DAILY PO 07/01/24 10:00 07/01/24 09:24 Acetaminophen/ Hydrocodone Bitart ([place] 5/325MG Tab) 1 tab Q4HP PRN PO MODERATE PAIN (4-6 PAIN SCALE) 06/30/24 20:45 07/01/24 09:30 Ondansetron HCl (Zofran) 4 mg Q4HP PRN IV NAUSEA / VOMITING 06/30/24 20:45 Acetaminophen (Tylenol Tablet) 650 mg Q6HP PRN PO PAIN SCALE 1-3 OR TEMP>100.4 06/30/24 20:45 06/30/24 23:55 Review of Systems Constitutional: No symptom reported Ears, Nose, & Throat: No symptom reported Eyes: No symptom reported Neurological: No symptoms reported Pulmonary/Respiratory: No symptoms reported Cardiovascular: No symptom reported Gastrointestinal: No symptom reported Genitourinary: No symptom reported Musculoskeletal: Left hip pain Skin: No symptom reported Psychiatric: No symptom reported Endocrine: No symptom reported Hematologic/Lymphatic: No symptom reported Vital Signs Vital Signs Date Time Temp Pulse Resp B/P (MAP) Pulse Ox O2 Delivery O2 Flow Rate FiO2 07/01/24 09:24 80 108/42 07/01/24 08:24 98.5 16 94 98.5 06/30/24 22:46 Room Air* 0 21 Physical Exam General Appearance: Cooperative. Well-developed. Well-nourished. No acute distress. Pulmonary/Respiratory: Clear, bilateral breaths sounds. Cardiovascular/Chest: Regular rate and rhythm. Peripheral Pulses: 2+ Radial (R). 2+ Radial (L). 2+ Pedal (R). 2+ Pedal (L) Abdominal Exam: Normal bowel sounds. Ankle Exam: Negative ankle edema Lower extremities: Negative lower extremity edema Neuro/Mental Status: A/OX4, coherent. Thoughts/Psych: Normal thought pattern. Appropriate mood and affect. Good judgment and insight. Appearance: No acute distress. Skin Exam: Generalized ecchymosis. Left eyebrow laceration. Skin warm and dry Labs/Diagnostic Data Labs Test 07/01/24 05:05 06/30/24 22:20 06/30/24 21:35 06/30/24 15:44 Range/Units White Blood Count 10.4 # 4.4-10.8 10^3/uL Red Blood Count 4.15 4.0-5.20 10^6/uL Hemoglobin 12.0 L 12.2-16.2 g/dL Hematocrit 35.9 L 36.0-46.0 % Mean Corpuscular Volume 86.7 80.0-100.0 fL Mean Corpuscular Hemoglobin 29.0 28.0-32.0 pg Mean Corpuscular Hemoglobin Concent 33.5 32.0-36.0 g/dL Red Cell Distribution Width 17.8 H 11.8-14.3 % Platelet Count 159 140-450 10^3/uL Mean Platelet Volume 7.5 6.9-10.8 fL Neutrophils (%) (Auto) 87.0 H 37.0-80.0 % Lymphocytes (%) (Auto) 5.5 L 10.0-50.0 % Monocytes (%) (Auto) 7.3 0.0-12.0 % Eosinophils (%) (Auto) 0.0 0.0-7.0 % Basophils (%) (Auto) 0.2 0.0-2.0 % Neutrophils # (Auto) 9.0 H 1.6-8.6 10 ^3/uL Lymphocytes # (Auto) 0.6 0.4-5.4 10 ^3/uL Monocytes # (Auto) 0.8 0-1.3 10 ^3/uL Eosinophils # (Auto) 0 0-0.8 10 ^3/uL Basophils # (Auto) 0 0-0.2 10 ^3/uL Nucleated Red Blood Cells 0.0 % Sodium Level 137 136-145 mmol/L Potassium Level 4.2 3.5-5.1 mmol/L Chloride Level 100 98-107 mmol/L Carbon Dioxide Level 29 20-31 mmol/L Anion Gap 8 5-15 Blood Urea Nitrogen 22 9-23 mg/dL Creatinine 0.92 0.550-1.02 mg/dL Glomerular Filtration Rate Calc 60 >90 mL/min BUN/Creatinine Ratio 23.9 H 10.0-20.0 Serum Glucose 142 H 74-106 mg/dL Calcium Level 9.7 8.7-10.4 mg/dL Urine Color Yellow Yellow Urine Clarity Clear Clear Urine pH 6.0 5.0-9.0 Urine Specific [place] 1.025 1.001-1.035 Urine Protein Negative Negative Urine Ketones Negative Negative Urine Blood Negative Negative /uL Urine Nitrite Negative Negative Urine Bilirubin Negative Negative Urine Urobilinogen Normal Negative mg/dL Urine Leukocyte Esterase Negative Negative /uL Urine RBC 1 0 - 4 /hpf Urine WBC None seen 0 - 5 /hpf Urine Squamous Epithelial Cells Few <5 /hpf Urine Bacteria None seen None Seen /hpf Urine Glucose Normal Normal mg/dL Prothrombin Time 11.6 9.3-11.8 sec Prothrombin Time INR 1.10 0.9-1.15 Activated Partial Thromboplast Time 26.9 24.5-34.5 SEC Total Bilirubin 0.4 0.2-1.0 mg/dL Aspartate Amino Transferase (AST) 34 13-40 U/L Alanine Aminotransferase (ALT) 13 7-40 U/L Alkaline Phosphatase 101 46-116 U/L Creatine Kinase 39 34-145 U/L Total Protein 6.6 5.7-8.2 g/dL Albumin 4.1 3.2-4.8 g/dL Assessment Preprocedural cardiovascular examination Atrial fibrillation, likely persistent (on Eliquis) Presence of single lead permanent pacemaker (Biotronik) Tricuspid valve regurgitation, moderate degree Hypertension Asthma Thyroid disease Gout History of tobacco use Obesity Plan/Recommendation We will continue with the following plan/recommendations (Dr. Goddard): Transthoracic echocardiogram reveals EF 55%, RVSP 35 mmHg with moderate tricuspid valve regurgitation. Revised cardiac risk index ([place] criteria): Class II risk (6.0%, 30 day risk of , [place], or cardiac arrest). Cardiac symptoms have ruled out at this time. There is no underlying history of congestive heart failure, coronary artery disease, or equivalent of cardiac symptoms. Prior to admission, the patient reports a fair functional capacity. Per Cardiology standpoint, the patient is at a moderate risk for moderate risk surgery. There is no additional cardiac workup indicated prior to surgery. We will recommend to resume NOAC therapy within 24 hours status post procedure if this is a low postprocedural bleeding risk. Resume NOAC therapy within 48-72 hours if high postprocedural bleeding risk. Thank you for allowing us to care for this patient. Please call with any questions or concerns. For any further cardiology concerns, please refer back to patient's primary associate agent insurance sales . Critical care time spent: 35 minutes This medical document was created using an electronic medical record system with voice recognition software and computerized dictation system. Although this document has been carefully reviewed, there might still be some phonetic and typographical errors. Occasional wrong-word or ``sound-alike substitutions may have occurred due to the inherent limitations of voice recognition software. These areas are purely typographical due to imperfections of the software programs and do not reflect any compromise in the patient's medical care. Please read the chart carefully and recognize, using context, where these substitutions have occurred. Plan discussed with: Patient Date of Service: Jul 01, 2024 Billing Provider: TOMAS GODDARD MD Cardiology Common Codes: [id number] INP/OBS CARE (High) ISHA CHRISTIE Jul 01, 2024 11:34
[2024-07-01] MEDS ORDERED: HYDROmorphone HCL 2 MG/ML VL/or syr ONE (12:08)
[2024-07-01] MEDS ORDERED: ONDANSETRON HCL 4 MG/2 ML VIAL ONE (12:09)
[2024-07-01] MEDS ORDERED: ePHEDrine SULFATE 50 MG/ML AMP ONE (12:09)
[2024-07-01] MEDS ORDERED: LIDOCAINE 2% (LOCAL ANESTH.) PF 5ml SDV ONE (12:09)
[2024-07-01] MEDS ORDERED: HYDROCORTISONE SOD SUCC 100 MG/2ML INJ VIAL ONE (12:09)
[2024-07-01] MEDS ORDERED: ETOMIDATE (2MG/ML) 20ML VIAL IV ONE (12:09)
[2024-07-01] MEDS ORDERED: MIDAZOLAM HCL 2MG/2ML 2ml VIAL (1mg/ml) ONE (12:11)
[2024-07-01] MEDS ORDERED: fentaNYL CITRATE 100 MCG/2 ML VL ONE (12:11)
[2024-07-01] MEDS ORDERED: KETAMINE 50mg/ML 1ml syringe ONE (12:11)
[2024-07-01] MEDS: BUPIVACAINE 0.5% P/F INJ 10 ML VIAL ONE (12:20)
--- NOTE | 2024-07-01 13:16 | DVHINCON2 ---
Date of service: Jul 01, 2024 Reason for Consultation Left hip pain History of Present Illness 88 yo F with multiple medical conditions sp mechanical ground level fall and hit left face and left hip -- immediate pain/swelling/inability to bear weight on left leg. 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/ patient on hospice prior due to her a.fib/copd Past Medical History reviewed as per HPI Family History: Diabetes mellitus G8 MOTHER FH: heart attack G8 FATHER Allergies: Coded Allergies: Clonidine (Verified Allergy, Severe, Bradycardia, 02/16/21) Methylprednisolone (Unverified Allergy, Severe, Throat closes up, 02/16/21) Morphine (Unverified Allergy, Severe, Anaphylaxis, 02/16/21) Penicillins (Verified Allergy, Severe, SOB, rash, 02/16/21) Home Meds Active Scripts Ciprofloxacin Hcl (Cipro) 250 Mg Tab, 250 MG PO BID, #10 TAB Prov:RAY JOHNSON MD 08/22/23 Potassium Chloride (Potassium Chloride Sr) 8 Meq Tab, 8 MEQ PO DAILY, #90 TAB Prov:RAY JOHNSON MD 01/24/23 Furosemide (Furosemide) 40 Mg Tab, 1 TAB PO DAILY, #90 TAB Prov:RAY JOHNSON MD 01/24/23 Metoprolol Succinate (Toprol Xl) 25 Mg Tab, 1 TAB PO DAILY, #90 TAB 1 Refill Prov:RAY JOHNSON MD 01/24/23 Allopurinol (ZYLOPRIM TABLET) 100 Mg Tb, 1 TAB PO DAILY for 5 Days, #5 TAB 5 Refills Prov:MANJU WARREN [employer] ELECT[employer]IC PRACTITIONER 10/14/21 Reported Medications Colchicine (COLCRYS TABLET) 0.6 Mg Tb, 0.6 MG PO DAILY PRN for prn, TAB 01/23/23 Apixaban Base (ELIQUIS) 5 Mg Tab, 5 MG PO BID, TAB 02/16/21 Levothyroxine Sodium (Levothyroxine Sodium) 25 Mcg Tab, 25 MCG PO DAILY, TAB 02/16/21 Current Medications Current Medications Medications (Trade) Dose Ordered Sig/Nubia Route PRN Reason Start Time Stop Time Status Last Admin Levothyroxine Sodium (Synthroid Tablet) 25 mcg QAM@0600 PO 07/01/24 06:00 07/01/24 05:21 Montelukast Sodium (Singulair Tablet) 10 mg HS PO 06/30/24 22:00 06/30/24 23:44 Allopurinol (Zyloprim Tablet) 300 mg DAILY PO 07/01/24 10:00 07/01/24 09:23 Metoprolol Succinate (Toprol Xl) 25 mg DAILY PO 07/01/24 10:00 07/01/24 09:24 Acetaminophen/ Hydrocodone Bitart (Agra 5/325MG Tab) 1 tab Q4HP PRN PO MODERATE PAIN (4-6 PAIN SCALE) 06/30/24 20:45 07/01/24 09:30 Ondansetron HCl (Zofran) 4 mg Q4HP PRN IV NAUSEA / VOMITING 06/30/24 20:45 Acetaminophen (Tylenol Tablet) 650 mg Q6HP PRN PO PAIN SCALE 1-3 OR TEMP>100.4 06/30/24 20:45 06/30/24 23:55 Review of Systems 10 point ROS is neg except per HPI Vital Signs Vital Signs Date Time Temp Pulse Resp B/P (MAP) Pulse Ox O2 Delivery O2 Flow Rate FiO2 07/01/24 11:40 98.4 74 18 115/54 (74) 92 98.4 07/01/24 08:00 Room Air* 0 21 Physical Exam NAD LLE: short ext rotated +TA/GS/EHL/FHL foot wwp daughter bedside Labs/Diagnostic Data Labs Test 07/01/24 05:05 06/30/24 22:20 06/30/24 21:35 06/30/24 15:44 Range/Units White Blood Count 10.4 # 4.4-10.8 10^3/uL Red Blood Count 4.15 4.0-5.20 10^6/uL Hemoglobin 12.0 L 12.2-16.2 g/dL Hematocrit 35.9 L 36.0-46.0 % Mean Corpuscular Volume 86.7 80.0-100.0 fL Mean Corpuscular Hemoglobin 29.0 28.0-32.0 pg Mean Corpuscular Hemoglobin Concent 33.5 32.0-36.0 g/dL Red Cell Distribution Width 17.8 H 11.8-14.3 % Platelet Count 159 140-450 10^3/uL Mean Platelet Volume 7.5 6.9-10.8 fL Neutrophils (%) (Auto) 87.0 H 37.0-80.0 % Lymphocytes (%) (Auto) 5.5 L 10.0-50.0 % Monocytes (%) (Auto) 7.3 0.0-12.0 % Eosinophils (%) (Auto) 0.0 0.0-7.0 % Basophils (%) (Auto) 0.2 0.0-2.0 % Neutrophils # (Auto) 9.0 H 1.6-8.6 10 ^3/uL Lymphocytes # (Auto) 0.6 0.4-5.4 10 ^3/uL Monocytes # (Auto) 0.8 0-1.3 10 ^3/uL Eosinophils # (Auto) 0 0-0.8 10 ^3/uL Basophils # (Auto) 0 0-0.2 10 ^3/uL Nucleated Red Blood Cells 0.0 % Sodium Level 137 136-145 mmol/L Potassium Level 4.2 3.5-5.1 mmol/L Chloride Level 100 98-107 mmol/L Carbon Dioxide Level 29 20-31 mmol/L Anion Gap 8 5-15 Blood Urea Nitrogen 22 9-23 mg/dL Creatinine 0.92 0.550-1.02 mg/dL Glomerular Filtration Rate Calc 60 >90 mL/min BUN/Creatinine Ratio 23.9 H 10.0-20.0 Serum Glucose 142 H 74-106 mg/dL Calcium Level 9.7 8.7-10.4 mg/dL Urine Color Yellow Yellow Urine Clarity Clear Clear Urine pH 6.0 5.0-9.0 Urine Specific [place] 1.025 1.001-1.035 Urine Protein Negative Negative Urine Ketones Negative Negative Urine Blood Negative Negative /uL Urine Nitrite Negative Negative Urine Bilirubin Negative Negative Urine Urobilinogen Normal Negative mg/dL Urine Leukocyte Esterase Negative Negative /uL Urine RBC 1 0 - 4 /hpf Urine WBC None seen 0 - 5 /hpf Urine Squamous Epithelial Cells Few <5 /hpf Urine Bacteria None seen None Seen /hpf Urine Glucose Normal Normal mg/dL Prothrombin Time 11.6 9.3-11.8 sec Prothrombin Time INR 1.10 0.9-1.15 Activated Partial Thromboplast Time 26.9 24.5-34.5 SEC Total Bilirubin 0.4 0.2-1.0 mg/dL Aspartate Amino Transferase (AST) 34 13-40 U/L Alanine Aminotransferase (ALT) 13 7-40 U/L Alkaline Phosphatase 101 46-116 U/L Creatine Kinase 39 34-145 U/L Total Protein 6.6 5.7-8.2 g/dL Albumin 4.1 3.2-4.8 g/dL Plan/Recommendation 88 yo F sp mechanical fall with displaced left hip fracture 1. A long and thorough discussion held with patient regarding her condition. Questions for patient and family answered. Risks include but not exclusive to bleeding infection nerve injury hardware failure nonunion malunion chronic pain blood clots cardiac and pulmonary complications amputation and . We discussed the morbidity and mortality of hip fractures in the elderly. Family agrees and wish to proceed with surgical intervention. 2. Plan for open reduction internal fixation of left hip fracture 3. NPO/IVF 4. pain control Plan discussed with: Patient, Daughter KATHLEEN JACKSON MD Jul 01, 2024 13:16
[2024-07-01] MEDS: BUPIVACAINE HCL 0.25% P/F 10 ML VIAL ONE (14:00)
--- NOTE | 2024-07-01 14:15 | DVHOP2 ---
Operative Report - 2 Report Details Date: 07/01/24 Preop Diagnosis: Left hip intertrochanter fracture Postop Diagnosis: as above Surgeon: Joe De Leon MD Anesthesiologist: Jass Anesthesia: Regional Implant: ITS intermediate nail Lag screw / locking screw no distal screw cerament Consent: The patient was informed of the risks and benefits of the procedure. These include but are not limited to complications of anesthesia, postoperative infection, incomplete relief of symptoms, recurrence of symptoms, damage to blood vessels, nerves and tendons, deep venous thrombosis, pulmonary embolism and possible need for repeat surgery in the future. Estimated Blood Loss: 100 cc Name of Procedure Performed open reduction internal fixation of Left hip fracture Procedure Details Procedure Details: In the preoperative holding area, the consent was reviewed and the appropriate extremity was verified by the patient and marked with my initials. The patient was then transferred to the operating theatre. Patient was placed on a fracture table. Appropriate anesthetia was induced. All bony prominences were well padded. A time out was performed verifying the side and site of surgery according to standard protocol. Preoperative antibiotics were given. The extremity was then prepped and draped in the usual sterile fashion. Using c-arm, the fracture was reduced using the fracture table and a combination of maneuvers including traction, internal rotation, and flexion. An incision was made over the greater trochanter confirming correct position with c-arm. A guide wire was drilled into the tip of the greater trochanter, centered A to P. We used the starting reamer to gain entry to the femoral canal. A short nail was then placed. A guide pin was then drilled in the center of the femoral head confirmed using fluoroscopy. We measured the screw lengths. Using a cannulated drill, we drilled the lateral cortex. The screws were then introduced. Once positioned, we once again confirmed that the screws were with the femoral head. Cerament placed into fracture site. Attention was turned distally. We used the targeting device to drill through the nail and the femur. This was measured using the device, howevere noted that it was posterior to nail so screw not placed. Final xrays were taken showing the hardware in perfect position. The wound was copiously irrigated. No fractures were seen on the rest of the femur. The fascia was closed with #1 Vicryl, the skin closed #2-0 Vicryl, and rachael. A dry sterile dressing was placed on the patient. The patient was transferred to the recovery room in stable condition. Condition Fair Disposition Still a Patient JOE DE LEON MD Jul 01, 2024 14:15
[2024-07-01] MEDS ORDERED: HYDROmorphone HCL 2 MG/ML VL/or syr IV PRN (14:30)
[2024-07-01] MEDS: ONDANSETRON HCL 4 MG/2 ML VIAL IV ONE (17:21)
[2024-07-01] MEDS: ceFAZolin 2 GM/D5W100ml 100 ML IV ONE (17:21)
--- NOTE | 2024-07-01 17:40 | DVHPN2 ---
Subjective Female status post mechanical fall with left intertrochanteric fracture. Patient is seen by me during rounds Patient was on anticoagulation. Consult For surgery today. NPO. Patient came in from hospice. More than 30 minutes spent in advanced care planning, including discussing code status, medical decision maker, goals of care and disposition planning. Changes from previous H/P or p: No Changes Objective Vitals Vital Signs Date Time Temp Pulse Resp B/P (MAP) Pulse Ox O2 Delivery O2 Flow Rate FiO2 07/01/24 14:59 75 10 107/56 (73) 98 07/01/24 14:40 Nasal Cannula 2.0 96 07/01/24 14:14 97.3 97.3 Medications Current Medications Medications Dose Ordered Sig/Nubia Route Start Time Stop Time Status Last Admin Dose Admin Levothyroxine Sodium 25 mcg QAM@0600 PO 07/01/24 06:00 07/01/24 05:21 25 MCG Montelukast Sodium 10 mg HS PO 06/30/24 22:00 06/30/24 23:44 10 MG Allopurinol 300 mg DAILY PO 07/01/24 10:00 07/01/24 09:23 300 MG Metoprolol Succinate 25 mg DAILY PO 07/01/24 10:00 07/01/24 09:24 25 MG Acetaminophen/ Hydrocodone Bitart 1 tab Q4HP PRN PO 06/30/24 20:45 07/01/24 09:30 1 TAB Ondansetron HCl 4 mg Q4HP PRN IV 06/30/24 20:45 Acetaminophen 650 mg Q6HP PRN PO 06/30/24 20:45 06/30/24 23:55 650 MG Nystatin 1 applic BID TOP 06/30/24 00:00 07/01/24 10:00 1 APPLIC Vancomycin HCl 200 ml @ 200 mls/hr DAILY IV 07/02/24 10:00 07/03/24 10:59 Laboratory Results Laboratory Tests 07/01/24 05:05 Chemistry Test 07/01/24 05:05 Calcium Level 9.7 mg/dL (8.7-10.4) Coagulation Test 06/30/24 21:35 Prothrombin Time 11.6 sec (9.3-11.8) Prothrombin Time INR 1.10 (0.9-1.15) Activated Partial Thromboplast Time 26.9 SEC (24.5-34.5) Urinalysis Test 06/30/24 22:20 Urine Color Yellow (Yellow) Urine Clarity Clear (Clear) Urine pH 6.0 (5.0-9.0) Urine Specific [place] 1.025 (1.001-1.035) Urine Protein Negative (Negative) Urine Ketones Negative (Negative) Urine Blood Negative /uL (Negative) Urine Nitrite Negative (Negative) Urine Bilirubin Negative (Negative) Urine Urobilinogen Normal mg/dL (Negative) Urine Leukocyte Esterase Negative /uL (Negative) Urine RBC 1 /hpf (0 - 4) Urine WBC None seen /hpf (0 - 5) Urine Squamous Epithelial Cells Few /hpf (<5) Urine Bacteria None seen /hpf (None Seen) Urine Glucose Normal mg/dL (Normal) Assessment/Plan Assessment/Plan Left intertrochanteric fracture Status post mechanical fall Left frontal superficial laceration Atrial fibrillation, likely persistent (on Eliquis) Presence of single lead permanent pacemaker (Biotronik) Tricuspid valve regurgitation, moderate degree Hypertension Asthma not on constipation Thyroid disease Gout History of tobacco use Obesity Cardio consult appreciated Ortho consult for procedure Hold Eliquis 48 hours after procedure Continue with home medication PT consult Pain management Diet NPO for surgery DVT prophylaxis on hold for procedure Code status full code Goals of care patient does not want to be in a prolonged ventilator or mechanical support Decision maker daughter and sons together Plan discussed with: Patient Date of Service: Jul 01, 2024 Billing Provider: TATYANA FAM MD Common Visit Codes: [id number] INP/OBS CARE(HIGH) Secondary Visit Codes: [id number] CARE PLAN 30 MINUTES TATYANA FAM MD Jul 01, 2024 17:40
--- NOTE | 2024-07-01 18:56 | DVH ---
CLINICAL INDICATION: ORIF LEFT HIP TECHNIQUE: 5 radiographic views of the left hip were obtained. Comparison: None FINDINGS/IMPRESSION: 5 images of a open reduction internal fixation of a intertrochanteric fracture of the left femur. Total fluoro time 62 seconds Cumulative dose: 4.99 mGy
--- NOTE | 2024-07-01 18:57 | DVH ---
C-ARM FLUOROSCOPY: PROCEDURE: Left hip ORIF FLUOROSCOPY TIME: 62 seconds Cumulative dose: 4.99 mGy
[2024-07-01] MEDS: HYDROmorphone HCL 2 MG/ML VL/or syr IV PRN (19:52)
[2024-07-02] VITALS (7 sets, daily range): BP systolic 101–121; BP diastolic 42–55; PULSE 74–96; RESP 16–20; TEMP 97.9–98.9; O2SAT 86–98
[2024-07-02 08:34] LABS: Basophils # (auto) 0 10 ^3/uL (0-0.2); Basophils % (auto) 0.1 % (0.0-2.0); Eosinophils # (auto) 0 10 ^3/uL (0-0.8); Hematocrit 29.9 % (36.0-46.0); Hemoglobin 9.5 g/dL (12.2-16.2); Lymphocytes # (auto) 1.1 10 ^3/uL (0.4-5.4); Lymphocytes % (auto) 7.3 % (10.0-50.0); Mean Corpuscular Hemoglobin 28.1 pg (28.0-32.0); Monocytes # (auto) 2.2 10 ^3/uL (0-1.3); Monocytes % (auto) 14.6 % (0.0-12.0); Neutrophils # (auto) 11.6 10 ^3/uL (1.6-8.6); Nucleated Red Blood Cells % 0.1 %; Platelet Count (auto) 167 10^3/uL (140-450); Red Blood Cells 3.39 10^6/uL (4.0-5.20); Red Cell Distribution Width 18.1 % (11.8-14.3); White Blood Cell 14.9 10^3/uL (4.4-10.8)
[2024-07-02 08:42] LABS: Chloride 103 mmol/L (98-107); Potassium 4.8 mmol/L (3.5-5.1); Sodium 137 mmol/L (136-145)
[2024-07-02 08:43] LABS: Anion Gap 6 (5-15); Calcium 9.4 mg/dL (8.7-10.4); Carbon Dioxide 28 mmol/L (20-31)
[2024-07-02 08:48] LABS: Glucose 153 mg/dL (74-106)
[2024-07-02 08:49] LABS: BUN/Creatinine Ratio 32.7 (10.0-20.0); Magnesium 1.8 mg/dL (1.6-2.6)
[2024-07-02 08:51] LABS: Blood Urea Nitrogen 35 mg/dL (9-23)
[2024-07-02] MEDS: VANCOMYCIN 1GM/200ML PREMIX 200 ML IV SCH (11:00)
--- NOTE | 2024-07-02 19:24 | DVHPN2 ---
Subjective Female status post mechanical fall with left intertrochanteric fracture. Patient is seen by me during rounds Status post ORIF, continue with pain management. PT consult. Social Service for dispo planning Reviewed: Care Plan, H&P, Labs, Medications, Previous Orders, Radiology Changes from previous H/P or p: No Changes Objective Vitals Vital Signs Date Time Temp Pulse Resp B/P (MAP) Pulse Ox O2 Delivery O2 Flow Rate FiO2 07/02/24 17:25 98.6 79 19 110/55 (73) 96 98.6 07/02/24 09:15 Room Air* 0 21 Intake/Output Intake and Output 07/02/24 07:00 Intake Total 310 ml Output Total 175 ml Balance 135 ml Intake Oral 260 ml IV Total 50 ml Output Urine Total 175 ml Exam Alert, oriented x3 PERRLA Hard of hearing Left forehead lac Clear breath sounds bilaterally S1-S2 regular rate and rhythm no murmur Abdomen soft nontender, no hepatomegaly Medications Current Medications Medications Dose Ordered Sig/Nubia Route Start Time Stop Time Status Last Admin Dose Admin Levothyroxine Sodium 25 mcg QAM@0600 PO 07/01/24 06:00 07/02/24 06:21 25 MCG Montelukast Sodium 10 mg HS PO 06/30/24 22:00 07/01/24 21:55 10 MG Allopurinol 300 mg DAILY PO 07/01/24 10:00 07/02/24 11:02 300 MG Metoprolol Succinate 25 mg DAILY PO 07/01/24 10:00 07/02/24 11:01 25 MG Acetaminophen/ Hydrocodone Bitart 1 tab Q4HP PRN PO 06/30/24 20:45 07/02/24 11:05 1 TAB Ondansetron HCl 4 mg Q4HP PRN IV 06/30/24 20:45 Acetaminophen 650 mg Q6HP PRN PO 06/30/24 20:45 06/30/24 23:55 650 MG Nystatin 1 applic BID TOP 06/30/24 00:00 07/02/24 10:59 1 APPLIC Vancomycin HCl 200 ml @ 200 mls/hr DAILY IV 07/02/24 10:00 07/03/24 10:59 07/02/24 11:00 200 MLS/HR Hydromorphone HCl 0.5 mg Q8HP PRN IV 07/01/24 18:00 07/02/24 06:54 0.5 MG Laboratory Results Laboratory Tests 07/02/24 07:54 Chemistry Test 07/02/24 07:54 Calcium Level 9.4 mg/dL (8.7-10.4) Magnesium Level 1.8 mg/dL (1.6-2.6) Phosphorus Level 4.0 mg/dL (2.4-5.1) Urinalysis Test 06/30/24 22:20 Urine Color Yellow (Yellow) Urine Clarity Clear (Clear) Urine pH 6.0 (5.0-9.0) Urine Specific [place] 1.025 (1.001-1.035) Urine Protein Negative (Negative) Urine Ketones Negative (Negative) Urine Blood Negative /uL (Negative) Urine Nitrite Negative (Negative) Urine Bilirubin Negative (Negative) Urine Urobilinogen Normal mg/dL (Negative) Urine Leukocyte Esterase Negative /uL (Negative) Urine RBC 1 /hpf (0 - 4) Urine WBC None seen /hpf (0 - 5) Urine Squamous Epithelial Cells Few /hpf (<5) Urine Bacteria None seen /hpf (None Seen) Urine Glucose Normal mg/dL (Normal) Labs and/or images reviewed: Labs reviewed by me, Image(s) reviewed by me Assessment/Plan Assessment/Plan Left intertrochanteric fracture Status post mechanical fall Left frontal superficial laceration Atrial fibrillation, likely persistent (on Eliquis) Presence of single lead permanent pacemaker (Biotronik) Tricuspid valve regurgitation, moderate degree Hypertension Asthma not on constipation Thyroid disease Gout History of tobacco use Obesity s/p orif Cardio consult appreciated Ortho consult for procedure Hold Eliquis 48 hours after procedure Continue with home medication PT consult Pain management Diet NPO for surgery DVT prophylaxis on hold for procedure Code status full code Goals of care patient does not want to be in a prolonged ventilator or mechanical support Decision maker daughter and sons together Plan discussed with: Patient Date of Service: Jul 02, 2024 Billing Provider: TATYANA FAM MD Common Visit Codes: [id number] INP/OBS CARE(HIGH) TATYANA FAM MD Jul 02, 2024 19:24
[2024-07-03 01:00] VITALS: BP 120/63; PULSE 86; RESP 20; TEMP 98; O2SAT 95
[2024-07-03 05:00] VITALS: BP 117/57; PULSE 80; RESP 18; TEMP 99.3; O2SAT 95
[2024-07-03 09:48] VITALS: BP_SYST 107; PULSE 75; RESP 18; TEMP 98.8; O2SAT 95
[2024-07-03 13:00] VITALS: BP_SYST 104; BP_SYST 95; BP_DIAS 33; PULSE 77; RESP 17; TEMP 97.8; O2SAT 95
--- NOTE | 2024-07-03 13:40 | DVHPN2 ---
Subjective Female status post mechanical fall with left intertrochanteric fracture. Patient is seen by me during rounds Status post ORIF, continue with pain management. PT consult. Social Service for dispo planning. - 07/03 -workign w PT but has pain, cant sit bz of pain. she is L hip #, s/p ORIF, now workign w PT and is lefft leg WBAT. . She is having nightly delirium. We will adjust her pain regimen today. She is WBAT, but her pain is limiting her ability to progress quickly with PT, she will require DVT prophylaxis by p.o. method while doing rehab at [facility] Reviewed: Care Plan, H&P, Labs, Medications, Previous Orders, Radiology Changes from previous H/P or p: No Changes General: Per HPI Objective Vitals Vital Signs Date Time Temp Pulse Resp B/P (MAP) Pulse Ox O2 Delivery O2 Flow Rate FiO2 07/03/24 09:48 98.8 75 18 107/ 95 98.8 07/03/24 08:02 Room Air* 0 21 Intake/Output Intake and Output 07/03/24 07:00 Intake Total 500 ml Output Total 900 ml Balance -400 ml Intake Oral 300 ml IV Total 200 ml Output Urine Total 900 ml Exam Alert, oriented x3 PERRLA Hard of hearing Left forehead lac Bibasilar rales S1-S2 regular rate and rhythm no murmur Abdomen soft nontender, no hepatomegaly. Bowel sounds normal Left hip ORIF dressing is CDI Medications Current Medications Medications Dose Ordered Sig/Nubia Route Start Time Stop Time Status Last Admin Dose Admin Levothyroxine Sodium 25 mcg QAM@0600 PO 07/01/24 06:00 07/03/24 04:51 25 MCG Montelukast Sodium 10 mg HS PO 06/30/24 22:00 07/02/24 20:33 10 MG Allopurinol 300 mg DAILY PO 07/01/24 10:00 07/03/24 09:43 300 MG Metoprolol Succinate 25 mg DAILY PO 07/01/24 10:00 07/03/24 09:43 25 MG Acetaminophen/ Hydrocodone Bitart 1 tab Q4HP PRN PO 06/30/24 20:45 07/03/24 10:04 1 TAB Ondansetron HCl 4 mg Q4HP PRN IV 06/30/24 20:45 Acetaminophen 650 mg Q6HP PRN PO 06/30/24 20:45 06/30/24 23:55 650 MG Nystatin 1 applic BID TOP 06/30/24 00:00 07/03/24 09:43 1 APPLIC Hydromorphone HCl 0.5 mg Q8HP PRN IV 07/01/24 18:00 07/03/24 01:16 0.5 MG Laboratory Results Laboratory Tests 07/02/24 07:54 Urinalysis Test 06/30/24 22:20 Urine Color Yellow (Yellow) Urine Clarity Clear (Clear) Urine pH 6.0 (5.0-9.0) Urine Specific [place] 1.025 (1.001-1.035) Urine Protein Negative (Negative) Urine Ketones Negative (Negative) Urine Blood Negative /uL (Negative) Urine Nitrite Negative (Negative) Urine Bilirubin Negative (Negative) Urine Urobilinogen Normal mg/dL (Negative) Urine Leukocyte Esterase Negative /uL (Negative) Urine RBC 1 /hpf (0 - 4) Urine WBC None seen /hpf (0 - 5) Urine Squamous Epithelial Cells Few /hpf (<5) Urine Bacteria None seen /hpf (None Seen) Urine Glucose Normal mg/dL (Normal) Labs and/or images reviewed: Labs reviewed by me, Image(s) reviewed by me Assessment/Plan Assessment/Plan Update- 07/03 -workign w PT but has pain, cant sit bz of pain. she is L hip #, s/p ORIF, now workign w PT and is lefft leg WBAT. . She is having nightly delirium. We will adjust her pain regimen today. She is WBAT, but her pain is limiting her ability to progress quickly with PT, she will require DVT prophylaxis by p.o. method while doing rehab at [facility] Assessment Left intertrochanteric fracture Status post mechanical fall Left frontal superficial laceration Atrial fibrillation, likely persistent (on Eliquis) Presence of single lead permanent pacemaker (Biotronik) Tricuspid valve regurgitation, moderate degree Hypertension Asthma not on constipation Thyroid disease Gout History of tobacco use Obesity s/p orif Plan Cardio consult appreciated Ortho consult for procedure - status post ORIF, ortho signed off. PT consult Pain management below changing pain to sche tylenol, adding oxy 10 for mod pain oxy 10 to be given prior to PT session- current goal PT is to sit at beside. -for delirium at night - no opiates and instead try baclofen, ibu 600, sero 25 qhs (patient having night delirium?) We will start Eliquis as it has been postop day 2 (48 hours) Code status full code Goals of care patient does not want to be in a prolonged ventilator or mechanical support Decision maker daughter and sons together diet: add boost bid dvt - continue SCDs/Eliquis GI ppx - continue diet Plan discussed with: Patient Date of Service: Jul 03, 2024 Billing Provider: ARTIE AUSTIN MD Common Visit Codes: [id number] INP/OBS CARE(HIGH) ARTIE AUSTIN MD Jul 03, 2024 13:40
[2024-07-03] MEDS: oxyCODONE HCL 5MG TAB PO PRN (14:37)
[2024-07-03 16:34] VITALS: BP 112/46; PULSE 81; RESP 16; TEMP 97.7; O2SAT 97
[2024-07-03] MEDS: ACETAMINOPHEN 325 MG TAB PO SCH (18:11)
[2024-07-03] MEDS: IBUPROFEN 600 MG TAB PO SCH (18:11)
[2024-07-03 21:00] VITALS: BP 100/47; PULSE 86; RESP 18; TEMP 98.3; O2SAT 98
[2024-07-03] MEDS: QUEtiapine FUMARATE 25 MG TAB PO SCH (21:03)
[2024-07-04] VITALS (8 sets, daily range): BP systolic 87–119; BP diastolic 38–63; PULSE 64–83; RESP 17–20; TEMP 97.4–98.3; O2SAT 96–99
[2024-07-04] MEDS: ENOXAPARIN SOD 40 MG/0.4 ML SYRINGE SC SCH (08:54)
--- NOTE | 2024-07-04 09:25 | ECG ---
[facility] Test Date: 2024-07-01 Test Time: 06:48:10 Pat Name: RAUDEL ROB Department: Respiratoy Room: [facility] Gender: F Rehab Nursing Tech: LUCA : 1935 Requested By: ISHA CHRISTIE Order Number: [id number] Reading MD: Crystal Caal Measurements Intervals [place] Rate: 75 P: 0 PA: 0 QRS: -57 QRSD: 150 T: 53 QT: 434 QTc: 485 Interpretive Statements Atrial fibrillation RBBB and LAFB Baseline wander in lead(s) V6 Electronically Signed On 07-05-2024 17:24:14 PST by Crystal Caal Please click the below link to view image of tracing.
[2024-07-04] MEDS ORDERED: APIXABAN 5 MG TAB PO SCH (10:00)
[2024-07-04 10:04] LABS: Basophils # (auto) 0 10 ^3/uL (0-0.2); Eosinophils # (auto) 0.1 10 ^3/uL (0-0.8); Hemoglobin 7.7 g/dL (12.2-16.2); Lymphocytes # (auto) 0.9 10 ^3/uL (0.4-5.4); Mean Corpuscular Hemoglobin 28.7 pg (28.0-32.0); Monocytes # (auto) 0.8 10 ^3/uL (0-1.3); Nucleated Red Blood Cells % 0.1 %; Red Blood Cells 2.68 10^6/uL (4.0-5.20)
[2024-07-04 10:05] LABS: Basophils % (auto) 0.2 % (0.0-2.0); Eosinophils % (auto) 1.7 % (0.0-7.0); Hematocrit 23.8 % (36.0-46.0); Lymphocytes % (auto) 12.6 % (10.0-50.0); Mean Corpuscular Hgb Conc. 32.3 g/dL (32.0-36.0); Mean Corpuscular Volume 88.9 fL (80.0-100.0); Monocytes % (auto) 11.8 % (0.0-12.0); Neutrophils % (auto) 73.7 % (37.0-80.0); Platelet Count (auto) 153 10^3/uL (140-450); Red Cell Distribution Width 18.2 % (11.8-14.3); White Blood Cell 6.8 10^3/uL (4.4-10.8)
[2024-07-04 10:22] LABS: Alanine Aminotransferase 14 U/L (7-40); Albumin 3.5 g/dL (3.2-4.8); Alkaline Phosphatase 80 U/L (46-116); Anion Gap 6 (5-15); Aspartate Aminotransferase 42 U/L (13-40); BUN/Creatinine Ratio 36.2 (10.0-20.0); Blood Urea Nitrogen 42 mg/dL (9-23); Calcium 9.7 mg/dL (8.7-10.4); Carbon Dioxide 27 mmol/L (20-31); Chloride 101 mmol/L (98-107); Glucose 148 mg/dL (74-106); Potassium 4.1 mmol/L (3.5-5.1); Sodium 134 mmol/L (136-145)
[2024-07-04 10:23] LABS: Bilirubin, Total 0.6 mg/dL (0.2-1.0); Total Protein 5.8 g/dL (5.7-8.2)
[2024-07-04] MEDS ORDERED: MONT-8 PO (16:16)
[2024-07-04] MEDS ORDERED: MELA3TAB27 PO (16:16)
[2024-07-04] MEDS ORDERED: THEO300T36 PO (16:16)
[2024-07-04] MEDS ORDERED: METO-159 PO (16:16)
[2024-07-04] MEDS ORDERED: ASPI81TA28 PO (16:16)
[2024-07-04] MEDS ORDERED: LORA-1121 PO (16:16)
[2024-07-04] MEDS ORDERED: TEMA15CA2 PO (16:16)
[2024-07-04] MEDS ORDERED: ALLO300T2 PO (16:16)
[2024-07-04] MEDS ORDERED: SERT-206 PO (16:16)
--- NOTE | 2024-07-04 23:29 | DVHPN2 ---
Subjective Female status post mechanical fall with left intertrochanteric fracture. Patient is seen by me during rounds Status post ORIF, continue with pain management. PT consult. Social Service for dispo planning. - 07/03 -workign w PT but has pain, cant sit bz of pain. she is L hip #, s/p ORIF, now workign w PT and is lefft leg WBAT. . She is having nightly delirium. We will adjust her pain regimen today. She is WBAT, but her pain is limiting her ability to progress quickly with PT, she will require DVT prophylaxis by p.o. method while doing rehab at [facility] - 07/04 patient is feeling better, the pain control is working. Today she was working with PT and was able to stand up at bedside showing good progress. Social consulted for sniff placement. Reviewed: Care Plan, H&P, Labs, Medications, Previous Orders, Radiology Changes from previous H/P or p: No Changes General: Per HPI Objective Vitals Vital Signs Date Time Temp Pulse Resp B/P (MAP) Pulse Ox O2 Delivery O2 Flow Rate FiO2 07/04/24 21:00 98.1 79 18 117/52 (73) 97 98.1 07/04/24 08:10 Room Air* 0 21 Intake/Output Intake and Output 07/04/24 07:00 Intake Total 1180 ml Output Total 1090 ml Balance 90 ml Intake Oral 980 ml IV Total 200 ml Output Urine Total 1090 ml Exam Alert, oriented x3 PERRLA Hard of hearing Left forehead lac Bibasilar rales S1-S2 regular rate and rhythm no murmur Abdomen soft nontender, no hepatomegaly. Bowel sounds normal Left hip ORIF dressing is CDI Medications Current Medications Medications Dose Ordered Sig/Nubia Route Start Time Stop Time Status Last Admin Dose Admin Levothyroxine Sodium 25 mcg QAM@0600 PO 07/01/24 06:00 07/04/24 05:22 25 MCG Montelukast Sodium 10 mg HS PO 06/30/24 22:00 07/04/24 21:11 10 MG Allopurinol 300 mg DAILY PO 07/01/24 10:00 07/04/24 08:54 300 MG Metoprolol Succinate 25 mg DAILY PO 07/01/24 10:00 07/04/24 08:54 25 MG Ondansetron HCl 4 mg Q4HP PRN IV 06/30/24 20:45 Nystatin 1 applic BID TOP 06/30/24 00:00 07/04/24 21:13 1 APPLIC Acetaminophen 650 mg Q6H PO 07/03/24 18:00 07/04/24 17:54 650 MG Quetiapine Fumarate 25 mg HS PO 07/03/24 22:00 07/04/24 21:11 25 MG Ibuprofen 600 mg QPM PO 07/03/24 18:00 07/05/24 17:00 07/04/24 17:54 600 MG Oxycodone HCl 10 mg Q4HP PRN PO 07/03/24 13:45 07/04/24 09:32 10 MG Enoxaparin Sodium 40 mg DAILY SC 07/04/24 10:00 07/04/24 08:54 40 MG Laboratory Results Laboratory Tests 07/04/24 09:36 Chemistry Test 07/04/24 09:36 Albumin 3.5 g/dL (3.2-4.8) Calcium Level 9.7 mg/dL (8.7-10.4) Total Protein 5.8 g/dL (5.7-8.2) LFT Test 07/04/24 09:36 Alanine Aminotransferase (ALT) 14 U/L (7-40) Alkaline Phosphatase 80 U/L (46-116) Aspartate Amino Transferase (AST) 42 U/L (13-40) H Total Bilirubin 0.6 mg/dL (0.2-1.0) Urinalysis Test 06/30/24 22:20 Urine Color Yellow (Yellow) Urine Clarity Clear (Clear) Urine pH 6.0 (5.0-9.0) Urine Specific [place] 1.025 (1.001-1.035) Urine Protein Negative (Negative) Urine Ketones Negative (Negative) Urine Blood Negative /uL (Negative) Urine Nitrite Negative (Negative) Urine Bilirubin Negative (Negative) Urine Urobilinogen Normal mg/dL (Negative) Urine Leukocyte Esterase Negative /uL (Negative) Urine RBC 1 /hpf (0 - 4) Urine WBC None seen /hpf (0 - 5) Urine Squamous Epithelial Cells Few /hpf (<5) Urine Bacteria None seen /hpf (None Seen) Urine Glucose Normal mg/dL (Normal) Labs and/or images reviewed: Labs reviewed by me, Image(s) reviewed by me Assessment/Plan Assessment/Plan Update-- 07/04 patient is feeling better, the pain control is working. Today she was working with PT and was able to stand up at bedside showing good progress. Social consulted for sniff placement. Assessment Left intertrochanteric fracture Status post mechanical fall Left frontal superficial laceration Atrial fibrillation, likely persistent (on Eliquis) Presence of single lead permanent pacemaker (Biotronik) Tricuspid valve regurgitation, moderate degree Hypertension Asthma not on constipation Thyroid disease Gout History of tobacco use Obesity s/p orif Plan Cardio consult appreciated Ortho consult for procedure - status post ORIF, ortho signed off. PT consult Pain management below changing pain to sche tylenol, adding oxy 10 for mod pain oxy 10 to be given prior to PT session- current goal PT is to sit at beside. -for delirium at night - no opiates and instead try baclofen, ibu 600, sero 25 qhs (patient having night delirium?) We will start Eliquis as it has been postop day 2 (48 hours) Code status full code Goals of care patient does not want to be in a prolonged ventilator or mechanical support Decision maker daughter and sons together diet: add boost bid dvt - continue SCDs/Eliquis GI ppx - continue diet Plan discussed with: Patient My Orders Orders - ARTIE AUSTIN MD Procedure Category Date Status Time * Grades 1 Through 6 Teacher CONS 07/04/24 Transmitted Consult Date of Service: Jul 04, 2024 Billing Provider: ARTIE AUSTIN MD Common Visit Codes: [id number] INP/OBS CARE(MOD) ARTIE AUSTIN MD Jul 04, 2024 23:29
[2024-07-05 01:00] VITALS: BP 99/45; PULSE 83; RESP 19; TEMP 98; O2SAT 96
[2024-07-05 05:00] VITALS: BP 91/42; PULSE 80; RESP 18; TEMP 97.3; O2SAT 96
[2024-07-05 09:00] VITALS: BP_SYST 101; BP_SYST 98; BP_DIAS 52; BP_DIAS 55; PULSE 68; PULSE 77; RESP 17; RESP 18; TEMP 97.5; TEMP 97.6; O2SAT 98; O2SAT 99
[2024-07-05 13:00] VITALS: BP_SYST 113; BP_SYST 114; BP_DIAS 41; BP_DIAS 67; PULSE 79; RESP 15; RESP 16; TEMP 97.8; TEMP 98.1; O2SAT 97; O2SAT 98
--- NOTE | 2024-07-05 15:36 | DVHDS2 ---
Discharge Summary Date of Admission Jun 30, 2024 at 20:34 Date of Discharge: Jul 05, 2024 Labs/Diagnostic Data: Laboratory Results Test 07/04/24 09:36 07/02/24 07:54 06/30/24 22:20 06/30/24 21:35 White Blood Count 6.8 10^3/uL (4.4-10.8) Red Blood Count 2.68 10^6/uL (4.0-5.20) Hemoglobin 7.7 g/dL (12.2-16.2) Hematocrit 23.8 % (36.0-46.0) Mean Corpuscular Volume 88.9 fL (80.0-100.0) Mean Corpuscular Hemoglobin 28.7 pg (28.0-32.0) Mean Corpuscular Hemoglobin Concent 32.3 g/dL (32.0-36.0) Red Cell Distribution Width 18.2 % (11.8-14.3) Platelet Count 153 10^3/uL (140-450) Mean Platelet Volume 7.9 fL (6.9-10.8) Neutrophils (%) (Auto) 73.7 % (37.0-80.0) Lymphocytes (%) (Auto) 12.6 % (10.0-50.0) Monocytes (%) (Auto) 11.8 % (0.0-12.0) Eosinophils (%) (Auto) 1.7 % (0.0-7.0) Basophils (%) (Auto) 0.2 % (0.0-2.0) Neutrophils # (Auto) 5.0 10 ^3/uL (1.6-8.6) Lymphocytes # (Auto) 0.9 10 ^3/uL (0.4-5.4) Monocytes # (Auto) 0.8 10 ^3/uL (0-1.3) Eosinophils # (Auto) 0.1 10 ^3/uL (0-0.8) Basophils # (Auto) 0 10 ^3/uL (0-0.2) Nucleated Red Blood Cells 0.1 % Sodium Level 134 mmol/L (136-145) Potassium Level 4.1 mmol/L (3.5-5.1) Chloride Level 101 mmol/L (98-107) Carbon Dioxide Level 27 mmol/L (20-31) Anion Gap 6 (5-15) Blood Urea Nitrogen 42 mg/dL (9-23) Creatinine 1.16 mg/dL (0.550-1.02) Glomerular Filtration Rate Calc 45 mL/min (>90) BUN/Creatinine Ratio 36.2 (10.0-20.0) Serum Glucose 148 mg/dL (74-106) Calcium Level 9.7 mg/dL (8.7-10.4) Total Bilirubin 0.6 mg/dL (0.2-1.0) Aspartate Amino Transferase (AST) 42 U/L (13-40) Alanine Aminotransferase (ALT) 14 U/L (7-40) Alkaline Phosphatase 80 U/L (46-116) Total Protein 5.8 g/dL (5.7-8.2) Albumin 3.5 g/dL (3.2-4.8) Phosphorus Level 4.0 mg/dL (2.4-5.1) Magnesium Level 1.8 mg/dL (1.6-2.6) Urine Color Yellow (Yellow) Urine Clarity Clear (Clear) Urine pH 6.0 (5.0-9.0) Urine Specific [place] 1.025 (1.001-1.035) Urine Protein Negative (Negative) Urine Ketones Negative (Negative) Urine Blood Negative /uL (Negative) Urine Nitrite Negative (Negative) Urine Bilirubin Negative (Negative) Urine Urobilinogen Normal mg/dL (Negative) Urine Leukocyte Esterase Negative /uL (Negative) Urine RBC 1 /hpf (0 - 4) Urine WBC None seen /hpf (0 - 5) Urine Squamous Epithelial Cells Few /hpf (<5) Urine Bacteria None seen /hpf (None Seen) Urine Glucose Normal mg/dL (Normal) Prothrombin Time 11.6 sec (9.3-11.8) Prothrombin Time INR 1.10 (0.9-1.15) Activated Partial Thromboplast Time 26.9 SEC (24.5-34.5) Test 06/30/24 15:44 Creatine Kinase 39 U/L (34-145) Other Laboratory Tests 07/04/24 09:36 Brief Hx & Hospital Course: 88 F s/p mechanical fall s/p ORIF. now will transfer to snf for rehab. Chronic pain. chronic conditions controlled. Condition at Discharge: Fair Final Diagnosis/Problems List as above Discharge Disposition: Detention Facility Discharge Instruct/Medications Diet: Cardiac 2g Na,low cholest Activity: See Comment Activity comment: WBAT per rehab Discharge Statement: "Patient was advised to return to the ER or call 911 if any headaches, dizziness, shortness of breath, chest pain, abdominal pain, bleeding, fevers, or worsening of medical condition. Patient was counseled about treatment plan, medications, possible side effects, patientverbalized understanding. All questions were answered to the best of my ability. This discharge took greater then 30 minutes in planning, reviewing documentation, counseling the patient, and discussing with other team members." ASSESSMENT ASSESSMENT Assessment Left intertrochanteric fracture Status post mechanical fall Left frontal superficial laceration Atrial fibrillation, likely persistent (on Eliquis) Presence of single lead permanent pacemaker (Biotronik) Tricuspid valve regurgitation, moderate degree Hypertension Asthma not on constipation Thyroid disease Gout History of tobacco use Obesity s/p orif Date of Service: Jul 05, 2024 Billing Provider: TATYANA FAM MD Common Visit Codes: 76720-IDT/OBS DISCH DAY >30min TATYANA FAM MD Jul 05, 2024 15:36
[2024-07-05] MEDS: HYDROmorphone HCL 2 MG/ML VL/or syr IV ONE (16:13)
[2024-07-05 16:14] VITALS: BP 98/52; PULSE 77; TEMP 36.7
[2024-07-05 17:00] VITALS: BP 110/56; PULSE 81; RESP 18; TEMP 97.7; O2SAT 96
== END 2024-07-05 21:19 | DRG 481 ==
LOC: ER 15:12 → EDBD 15:12 → EDUNIT# 15:12 → OVERFLOW 20:34 → WEST WING 22:32
PROVIDERS: ADMIT Student in an Organized Health Care Education/Training Program; ATTEND Student in an Organized Health Care Education/Training Program
PROC: 0QS704Z Reposition Left Upper Femur with Internal Fixation Device, Open Approach (ICD-10-PCS; principal; 2024-07-01 12:51)
DX: S72.142A Displaced intertrochanteric fracture of left femur, initial encounter for closed fracture (principal); I48.19 Other persistent atrial fibrillation; I10 Essential (primary) hypertension; I07.1 Rheumatic tricuspid insufficiency; M10.9 Gout, unspecified; E66.9 Obesity, unspecified; E03.9 Hypothyroidism, unspecified; S01.81XA Laceration without foreign body of other part of head, initial encounter; G89.29 Other chronic pain; J45.909 Unspecified asthma, uncomplicated; Z87.891 Personal history of nicotine dependence; Z90.710 Acquired absence of both cervix and uterus; Z88.0 Allergy status to penicillin; Z79.01 Long term (current) use of anticoagulants; Z68.30 Body mass index [BMI] 30.0-30.9, adult; Z83.3 Family history of diabetes mellitus; Z82.49 Family history of ischemic heart disease and other diseases of the circulatory system; W01.0XXA Fall on same level from slipping, tripping and stumbling without subsequent striking against object, initial encounter; Y93.89 Activity, other specified; Y92.098 Other place in other non-institutional residence as the place of occurrence of the external cause; Y99.8 Other external cause status
CPT/HCPCS: 36415; 70450; 71045; 71250; 73502; 74176; 76000; 80048; 80053; 81001; 82550; 83735; 84100; 85025; 85610; 85730; 86850; 86900; 86901; 93005; 93306; 97110; 97116; 97163; 97530; G0378; J2003; J2250; J2405; J3490

== ENCOUNTER 2024-07-11 14:04 | Inpatient (IN) | payer OTHER, MEDICAID ==
[~2024-07-11] VITALS: Ht 160 cm; Wt 76.2 kg
[~2024-07-11 14:04] MED LIST changes: -ALL100T PO; +ALLO300T2 PO; -APIX5TAB PO; +ASPI81TA28 PO; -CIPR-273 PO; -COLC0.6T56 PO; -FURO40TA4 PO; +LORA-1121 PO; +MELA3TAB27 PO; +METO-159 PO; -METO25TA36 PO; +MONT-8 PO; -POTA8TAB15 PO; +SERT-206 PO; +TEMA15CA2 PO; +THEO300T36 PO
--- NOTE | 2024-07-11 14:51 | ED.PDOC ---
History of Present Illness HPI Comments 89-year-old female who comes in with chief complaint of abdominal pain and constipation. The patient states that she fell on her left hip and broke it approximately three weeks ago. The patient states that she was in rehab and has been taking pain medications but now is having some abdominal pain with no bowel movement. The patient states that the symptoms have been going on for approximately six days. The pain is in the left lower quadrant and then goes up to the left upper quadrant. 911 was called and the patient was transported to our facility. At this time she can not quantify how bad her abdominal pain is. Chief Complaint: Abdominal Pain Time Seen by MD: 14:10 Primary Care Provider: JESSICA Reviewed Notes: Nurses Notes, Medications, Allergies (No allergies to medications) Allergies: Coded Allergies: Clonidine (Verified Allergy, Severe, Bradycardia, 02/16/21) Methylprednisolone (Unverified Allergy, Severe, Throat closes up, 02/16/21) Morphine (Unverified Allergy, Severe, Anaphylaxis, 02/16/21) Penicillins (Verified Allergy, Severe, SOB, rash, 02/16/21) Home Meds Reported Medications Lorazepam (ATIVAN TABLET) 0.5 Mg Tb, 1 TAB PO HS PRN for FOR INSOMNIA, #30 TAB 07/04/24 Temazepam (Restoril) 15 Mg Cp, 1 CAP PO HS, #30 CAP 1 Refill 07/04/24 Melatonin (KP MELATONIN) 3 Mg Tab, 5 MG PO HS, TAB 07/04/24 Sertraline Hcl (Sertraline Hcl) 50 Mg Tab, 100 MG PO HS for 30 Days, MG 07/04/24 Aspirin (Aspirin Ec) 81 Mg Tab, 325 MG PO DAILY, TAB 07/04/24 Theophylline (Theophylline Er) 300 Mg Tab, 300 MG PO DAILY for 30 Days, MG 07/04/24 Montelukast Sodium (MONTELUKAST SODIUM) 10 Mg Tab, 1 TAB PO DAILY, #30 TAB 5 Refills 07/04/24 Metoprolol Tartrate (Metoprolol Tartrate) 100 Mg Tab, 100 MG PO DAILY for 30 Days, MG 07/04/24 Allopurinol (Allopurinol) 300 Mg Tab, 300 MG PO DAILY for 30 Days, MG 07/04/24 Levothyroxine Sodium (Levothyroxine Sodium) 25 Mcg Tab, 25 MCG PO DAILY, TAB 02/16/21 Discontinued Reported Medications Colchicine (COLCRYS TABLET) 0.6 Mg Tb, 0.6 MG PO DAILY PRN for prn, TAB 01/23/23 Information Source: Patient Mode of Arrival: Ambulatory Severity: Moderate Timing: Weeks Duration: Since onset Prehospital treatment: None Location: Generalized abdominal pain Associated signs and symptoms The patient denies any vomiting or diarrhea but is having constipation Past Medical History PAST MEDICAL HISTORY: AFIB, Arthritis, Asthma, Cancer, CKF, COPD, HTN, Thyroid Surgical History: Hernia Repair, Hysterectomy, Pacemaker, Tonsillectomy Surgical History (Other): Left hip surgery, back surgery SHOE SHINER History: No Pertinent SHOE SHINER History Family History Family History: Family hx of heart praful Social History Smoker: Quit Greater Than 1 Year Alcohol: Denies ETOH Use Drugs: Denies Drug Use Lives In: Home Constitutional: denies: chills, diaphoresis, fatigue, fever, malaise, sweats, weakness, others EENTM: denies: blurred vision, double vision, ear bleeding, ear discharge, ear drainage, ear pain, ear ringing, eye pain, eye redness, hearing loss, mouth pain, mouth swelling, nasal discharge, nose bleeding, nose congestion, nose pain, photophobia, tearing, throat pain, throat swelling, voice changes, others Respiratory: denies: cough, hemoptysis, orthopnea, SOB at rest, shortness of breath, SOB with excertion, stridor, wheezing, others Cardiovascular: denies: chest pain, dizzy spells, diaphoresis, Dyspnea on exertion, edema, irregular heart beat, left arm pain, lightheadedness, pal pitations, PND, syncope, others Gastrointestinal: reports: abdominal pain, constipated; denies: abdomen distended, blood streaked bowels, diarrhea, dysphagia, difficulty swallowing, hematemesis, melena, nausea, poor appetite, poor fluid intake, rectal bleeding, rectal pain, vomiting, others Genitourinary: denies: abnormal vagina bleeding, burning, dyspareunia, dysuria, flank pain, frequency, hematuria, incontinence, pain, , vagina discharge, urgency, others Neurological: denies: dizziness, fainting, headache, left sided numbness, left sided weakness, numbness, paresthesia, pre-existing deficit, right sided numbness, right sided weakness, seizure, speech problems, tingling, tremors, weakness, others Musculoskeletal: reports: others (Left hip pain); denies: back pain, gout, joint pain, joint swelling, muscle pain, muscle stiffness, neck pain Integumetry: denies: bruises, change in color, change in hair/nails, dryness, laceration, lesions, lumps, rash, wounds, others Allergic/Immunocompromised: denies: Difficulty Healing, Frequent Infections, Hives, Itching, others Hematologic/Lymphatic: denies: anemia, blood clots, easy bleeding, easy bruising, swollen glands, others Endocrine: denies: excessive hunger, excessive sweating, excessive thirst, excessive urination, flushing, intolerance to cold, intolerance to heat, unexplained weight gain, unexplained weight loss, others Psychiatric: denies: anxiety, bipolar disorder, depression, hopeless, panic disorder, schizophrenia, sleepless, suicidal, others Physical Exam General Appearance: Moderate Distress HEENT: Normal ENT Inspection, Pharynx Normal, TMs Normal Neck: Full Range of Motion, Non-Tender, Normal, Normal Inspection Respiratory: Chest Non-Tender, Lungs Clear, No Accessory Muscle Use, No Respiratory Distress, Normal Breath Sounds Cardiovascular: No Edema, No JVD, No Murmur, No Gallop, Normal Peripheral Pulses, Regular Rate/Rhythm Breast Exam: Deferred Gastrointestinal: No Organomegaly, Non Tender, No Pulsatile Mass, Normal Bowel Sounds, Soft Genitalia: Deferred Pelvic: Deferred Rectal: Deferred Extremities: No calf tenderness, Normal capillary refill, No pedal edema Musculoskeletal : Location: Left Extremity Location: Hip Apperance: Limited ROM, Tenderness: Moderate Neurologic: Alert, job placement officer II-XII nml as Tested, No Motor Deficits, Normal Affect, Normal Mood, No Sensory Deficits Cerebellar Function: Normal Reflexes: Normal Skin: Dry, Normal Color, Warm Lymphatic: No Adenopathy Was a procedure done? Was a procedure done?: No Differential Dx Considerations may include: Fracture, strain, abdominal pain, constipation, electrolyte imbalance X-Ray, Labs, Meds, VS Vital Signs Date Time Temp Pulse Resp B/P (MAP) Pulse Ox O2 Delivery O2 Flow Rate FiO2 07/11/24 16:43 99.1 110 18 129/52 (77) 97 99.1 07/11/24 14:07 98.7 128 12 104/63 (77) 93 Lab Test 07/11/24 14:32 Range/Units White Blood Count 14.1 H 4.4-10.8 10^3/uL Red Blood Count 2.75 L 4.0-5.20 10^6/uL Hemoglobin 7.7 L 12.2-16.2 g/dL Hematocrit 23.7 L 36.0-46.0 % Mean Corpuscular Volume 86.4 80.0-100.0 fL Mean Corpuscular Hemoglobin 28.1 28.0-32.0 pg Mean Corpuscular Hemoglobin Concent 32.5 32.0-36.0 g/dL Red Cell Distribution Width 18.5 H 11.8-14.3 % Platelet Count 366 140-450 10^3/uL Mean Platelet Volume 7.0 6.9-10.8 fL Neutrophils (%) (Auto) 86.0 H 37.0-80.0 % Lymphocytes (%) (Auto) 5.3 L 10.0-50.0 % Monocytes (%) (Auto) 8.0 0.0-12.0 % Eosinophils (%) (Auto) 0.5 0.0-7.0 % Basophils (%) (Auto) 0.2 0.0-2.0 % Neutrophils # (Auto) 12.1 H 1.6-8.6 10 ^3/uL Lymphocytes # (Auto) 0.7 0.4-5.4 10 ^3/uL Monocytes # (Auto) 1.1 0-1.3 10 ^3/uL Eosinophils # (Auto) 0.1 0-0.8 10 ^3/uL Basophils # (Auto) 0 0-0.2 10 ^3/uL Nucleated Red Blood Cells 0.1 % Sodium Level 132 L 136-145 mmol/L Potassium Level 4.0 3.5-5.1 mmol/L Chloride Level 98 98-107 mmol/L Carbon Dioxide Level 30 20-31 mmol/L Anion Gap 4 L 5-15 Blood Urea Nitrogen 15 9-23 mg/dL Creatinine 0.57 0.550-1.02 mg/dL Glomerular Filtration Rate Calc 87 >90 mL/min BUN/Creatinine Ratio 26.3 H 10.0-20.0 Serum Glucose 144 H 74-106 mg/dL Calcium Level 9.2 8.7-10.4 mg/dL Total Bilirubin 0.8 0.2-1.0 mg/dL Aspartate Amino Transferase (AST) 43 H 13-40 U/L Alanine Aminotransferase (ALT) 18 7-40 U/L Alkaline Phosphatase 137 H 46-116 U/L Total Protein 5.9 5.7-8.2 g/dL Albumin 3.3 3.2-4.8 g/dL PROCEDURE(s): ABPL - CT AB PEL WO CON-NO ORAL OR IV IMPRESSION: 1. No CT evidence for acute intra-abdominal or intrapelvic process. 2. Mild fecal retention. 3. Interval left proximal femoral ORIF for intertrochanteric fracture persistent moderate muscle edema, subcutaneous hematomas/postsurgical fluid subcutaneous fat stranding. The partially seen fluid collection in the subcutaneous tissues of the left lateral hip is partially imaged. Recommend visual inspection to ensure no developing abscess. The CBC shows significant anemia with a hemoglobin of 7.7 and hematocrit 23.7 The platelets are within normal limits The chemistry panel is within normal limits At this time, the patient was being admitted to the hospitalist Images Reviewed?: Images reviewed and evaluated by me Time of 1ST Reevaluation: 14:56 Reevaluation 1ST: Unchanged Patient Education/Counseling: Diagnosis, Treatment, Prognosis Family Education/Counseling: No Family Present Departure 1 Departure Time of Disposition: 18:31 Impression: Primary Impression: Intractable abdominal pain Additional Impression: Severe anemia Disposition: 09 ADMITTED INPATIENT [facility]mit to: [facility] Condition: Fair Critical Care Note Critical Care Time?: No Stability Stability form required: Yes Unstable for transfer: ED Physician Assesment (Clinical assesment) Heart Score Heart Score: Heart Score Response (Comments) Value History N/A 0 EKG N/A 0 Age N/A 0 Risk Factors N/A 0 Troponin N/A 0 Total 0 I personally scribed for AMAN HINTON MD ([email or web address]) on 07/11/24 at 17:15. Electronically submitted by Suha Rios ([email or web address]). AMAN HINTON MD Jul 11, 2024 14:51
[2024-07-11 14:52] LABS: Basophils # (auto) 0 10 ^3/uL (0-0.2); Basophils % (auto) 0.2 % (0.0-2.0); Eosinophils # (auto) 0.1 10 ^3/uL (0-0.8); Eosinophils % (auto) 0.5 % (0.0-7.0); Hematocrit 23.7 % (36.0-46.0); Hemoglobin 7.7 g/dL (12.2-16.2); Lymphocytes # (auto) 0.7 10 ^3/uL (0.4-5.4); Lymphocytes % (auto) 5.3 % (10.0-50.0); Mean Corpuscular Hemoglobin 28.1 pg (28.0-32.0); Mean Corpuscular Hgb Conc. 32.5 g/dL (32.0-36.0); Mean Corpuscular Volume 86.4 fL (80.0-100.0); Monocytes # (auto) 1.1 10 ^3/uL (0-1.3); Neutrophils # (auto) 12.1 10 ^3/uL (1.6-8.6); Nucleated Red Blood Cells % 0.1 %; Platelet Count (auto) 366 10^3/uL (140-450); Red Blood Cells 2.75 10^6/uL (4.0-5.20); Red Cell Distribution Width 18.5 % (11.8-14.3); White Blood Cell 14.1 10^3/uL (4.4-10.8)
[2024-07-11 15:18] LABS: Alanine Aminotransferase 18 U/L (7-40); Alkaline Phosphatase 137 U/L (46-116); Anion Gap 4 (5-15); Aspartate Aminotransferase 43 U/L (13-40); BUN/Creatinine Ratio 26.3 (10.0-20.0); Blood Urea Nitrogen 15 mg/dL (9-23); Calcium 9.2 mg/dL (8.7-10.4); Carbon Dioxide 30 mmol/L (20-31); Chloride 98 mmol/L (98-107); Glucose 144 mg/dL (74-106); Sodium 132 mmol/L (136-145)
[2024-07-11 15:19] LABS: Albumin 3.3 g/dL (3.2-4.8); Bilirubin, Total 0.8 mg/dL (0.2-1.0); Total Protein 5.9 g/dL (5.7-8.2)
--- NOTE | 2024-07-11 17:08 | DVH ---
Procedure: CT CT AB PEL WO CON-NO ORAL OR IV 07/11/2024 04:16 PM Indication:pain. Comparison Study: None available at time of dictation. Technique: Axial images were obtained and reformatted in coronal and sagittal planes. All CT scans at this medical facility are performed using dose modulation techniques as appropriate t o a performed exam including the following: Automated exposure control was utilized; adjustment of th e MA and/or KV according to patient size; and use of iterative reconstruction technique. CT Dose: CTDI volume is 15.37 mGy. Dose-length product is 825.58 mGy*cm FINDINGS: Lower Chest: Mild bibasilar pulmonary opacities are seen. Hepatobiliary: Gallbladder is surgically absent. Inflammation noted Spleen: Mildly enlarged, 12.6 cm in craniocaudal. Pancreas: Unremarkable. Adrenal Glands: Unremarkable. tract: The kidneys are normal in size bilaterally without hydronephrosis . Subcentimeter nonobstr ucting bilateral renal calculi versus vascular calcifications. The urinary bladder is mildly distend ed. Small amount of air noted in the non dependent portion of the bladder likely due to recent instr umentation. No bladder wall thickening or pericystic. GI tract: The stomach is grossly normal in appearance. No evidence of small bowel obstruction. Scatte red colonic diverticula are noted without evidence of diverticulitis. The appendix is not visualized . No inflammatory change is noted in the right lower quadrant. Lymphatics: No mesenteric, retroperitoneal or periportal lymphadenopathy. Vasculature: The abdominal aorta is normal in in caliber. Pelvic Organs: Unremarkable Bones/soft tissues: No acute abnormality. Degenerative changes of the lumbar spine noted. Small fat-c ontaining umbilical hernia.partially imaged fluid collection in the lateral aspect of the left hip th at could be at the incisional scar or reflect a developing abscess. Remote paraumbilical ventral abdo yogesh wall mesh herniorrhaphy noted. Small fat containing right inguinal hernia. Multilevel degenera tive disc disease and posterior facet arthropathy of the lumbar spine. Postoperative changes Other: None. IMPRESSION: 1. No CT evidence for acute intra-abdominal or intrapelvic process. 2. Mild fecal retention. 3. Interval left proximal femoral ORIF for intertrochanteric fracture persistent moderate muscle nhung a, subcutaneous hematomas/postsurgical fluid subcutaneous fat stranding. The partially seen fluid col lection in the subcutaneous tissues of the left lateral hip is partially imaged. Recommend visual in spection to ensure no developing abscess.
[2024-07-11] MEDS ORDERED: ONDANSETRON HCL 4 MG/2 ML VIAL IV PRN (21:30)
[2024-07-11] MEDS: DOCUSATE SOD 100 MG CAP PO SCH (23:47)
[2024-07-11] MEDS: MONTELUKAST SODIUM 10 MG TAB PO SCH (23:48)
[2024-07-11] MEDS: HYDROcodone-ACET 5/325MG TAB PO PRN (23:53)
[2024-07-12] VITALS (7 sets, daily range): BP systolic 110–131; BP diastolic 46–61; PULSE 78–123; RESP 14–20; TEMP 98.2–99.2; O2SAT 95–100
--- NOTE | 2024-07-12 05:24 | DVHHP2 ---
History of Present Illness Reason for Visit: Abdominal pain History of Present Illness 89-year-old female presents for evaluation of abdominal pain. Patient reports a six day history of intermittent sharp left lower quadrant abdominal pain. Denies nausea or vomiting. She also reports mild left hip tenderness. She status post or if recently of the left hip. Denies fever or chills. No other acute complaints reported. Past Medical History Asthma, AFib, chronic kidney disease, COPD, hypertension and thyroid Past Surgical History Pacemaker, hysterectomy, tonsillectomy, left hip surgery and hernia repair Family History Noncontributory Smoke: Quit ALCOHOL: none Drugs: None Review of Systems Review of Systems Review of systems are currently negative otherwise addressed in HPI. Allergies: Coded Allergies: Clonidine (Verified Allergy, Severe, Bradycardia, 02/16/21) Methylprednisolone (Unverified Allergy, Severe, Throat closes up, 02/16/21) Morphine (Unverified Allergy, Severe, Anaphylaxis, 02/16/21) Penicillins (Verified Allergy, Severe, SOB, rash, 02/16/21) Medications Current Medications Medications Dose Ordered Sig/Nubia Route Start Time Stop Time Status Last Admin Dose Admin Metoprolol Succinate 25 mg DAILY PO 07/12/24 10:00 Levothyroxine Sodium 25 mcg QAM@0600 PO 07/12/24 06:00 Allopurinol 300 mg DAILY PO 07/12/24 10:00 Montelukast Sodium 10 mg HS PO 07/11/24 22:00 07/11/24 23:48 10 MG Acetaminophen/ Hydrocodone Bitart 1 tab Q4HP PRN PO 07/11/24 21:30 07/12/24 04:35 1 TAB Ondansetron HCl 4 mg Q4HP PRN IV 07/11/24 21:30 Enoxaparin Sodium 40 mg DAILY SC 07/12/24 10:00 Acetaminophen 650 mg Q6HP PRN PO 07/11/24 21:30 Docusate Sodium 100 mg BID PO 07/11/24 22:00 07/11/24 23:47 100 MG Exam Vital Signs Vital Signs Date Time Temp Pulse Resp B/P (MAP) Pulse Ox O2 Delivery O2 Flow Rate FiO2 07/12/24 01:40 Nasal Cannula* 2 28 07/12/24 01:29 104 12 123/51 (75) 07/12/24 00:33 98.7 93 98.7 Exam Gen: 89-year-old female in mild distress Skin: Warm, dry, normal color and texture, no rash. HEENT: Normocephalic atraumatic, mucous membranes moist and pink. Neck: Cervical and supraclavicular nodes normal without enlargement, trachea is midline, thyroid gland is normal without masses. Pulmonary: Clear to auscultation and percussion bilaterally. Cardiac: Regular rate and rhythm. No murmur Abdomen: Soft, left lower quadrant tenderness, nondistended, bowel sounds presen t all 4 quadrants, no guarding, no rigidity, no organomegaly. Extremities: No cyanosis, clubbing, no edema Neuro: Cranial nerves II through XII grossly intact, normal affect and speech, no focal motor deficits. Labs/Xrays ORDERING PHYSICIAN: AMAN HINTON MD PROCEDURE(s): ABPL - CT AB PEL WO CON-NO ORAL OR IV REASON: pain ORDER NUMBER(s): [id number], ACCESSION NUMBER(s): [id number] Procedure: CT CT AB PEL WO CON-NO ORAL OR IV 07/11/2024 04:16 PM Indication:pain. Comparison Study: None available at time of dictation. Technique: Axial images were obtained and reformatted in coronal and sagittal planes. All CT scans at this medical facility are performed using dose modulation tech niques as appropriate to a performed exam including the following: Automated exposure control was utilized; adjustment of the MA and/or KV according to patient size; and use of iterative reconstruction technique. CT Dose: CTDI volume is 15.37 mGy. Dose-length product is 825.58 mGy*cm FINDINGS: Lower Chest: Mild bibasilar pulmonary opacities are seen. Hepatobiliary: Gallbladder is surgically absent. Inflammation noted Spleen: Mildly enlarged, 12.6 cm in craniocaudal. Pancreas: Unremarkable. Adrenal Glands: Unremarkable. tract: The kidneys are normal in size bilaterally without hydronephrosis . Subcentimeter nonobstructing bilateral renal calculi versus vascular calcifications. The urinary bladder is mildly distended. Small amount of air noted in the non dependent portion of the bladder likely due to recent instrumentation. No bladder wall thickening or pericystic. GI tract: The stomach is grossly normal in appearance. No evidence of small bowel obstruction. Scattered colonic diverticula are noted without evidence of diverticulitis. The appendix is not visualized. No inflammatory change is noted in the right lower quadrant. Lymphatics: No mesenteric, retroperitoneal or periportal lymphadenopathy. Vasculature: The abdominal aorta is normal in in caliber. Pelvic Organs: Unremarkable Bones/soft tissues: No acute abnormality. Degenerative changes of the lumbar spine noted. Small fat-containing umbilical hernia.partially imaged fluid collection in the lateral aspect of the left hip that could be at the incisional scar or reflect a developing abscess. Remote paraumbilical ventral abdominal wall mesh herniorrhaphy noted. Small fat containing right inguinal hernia. Multilevel degenerative disc disease and posterior facet arthropathy of the lumbar spine. Postoperative changes Other: None. IMPRESSION: 1. No CT evidence for acute intra-abdominal or intrapelvic process. 2. Mild fecal retention. 3. Interval left proximal femoral ORIF for intertrochanteric fracture persistent moderate muscle edema, subcutaneous hematomas/postsurgical fluid subcutaneous fat stranding. The partially seen fluid collection in the subcutaneous tissues of the left lateral hip is partially imaged. Recommend visual inspection to ensure no developing abscess. Labs Test 07/11/24 14:32 Range/Units White Blood Count 14.1 H 4.4-10.8 10^3/uL Red Blood Count 2.75 L 4.0-5.20 10^6/uL Hemoglobin 7.7 L 12.2-16.2 g/dL Hematocrit 23.7 L 36.0-46.0 % Mean Corpuscular Volume 86.4 80.0-100.0 fL Mean Corpuscular Hemoglobin 28.1 28.0-32.0 pg Mean Corpuscular Hemoglobin Concent 32.5 32.0-36.0 g/dL Red Cell Distribution Width 18.5 H 11.8-14.3 % Platelet Count 366 140-450 10^3/uL Mean Platelet Volume 7.0 6.9-10.8 fL Neutrophils (%) (Auto) 86.0 H 37.0-80.0 % Lymphocytes (%) (Auto) 5.3 L 10.0-50.0 % Monocytes (%) (Auto) 8.0 0.0-12.0 % Eosinophils (%) (Auto) 0.5 0.0-7.0 % Basophils (%) (Auto) 0.2 0.0-2.0 % Neutrophils # (Auto) 12.1 H 1.6-8.6 10 ^3/uL Lymphocytes # (Auto) 0.7 0.4-5.4 10 ^3/uL Monocytes # (Auto) 1.1 0-1.3 10 ^3/uL Eosinophils # (Auto) 0.1 0-0.8 10 ^3/uL Basophils # (Auto) 0 0-0.2 10 ^3/uL Nucleated Red Blood Cells 0.1 % Sodium Level 132 L 136-145 mmol/L Potassium Level 4.0 3.5-5.1 mmol/L Chloride Level 98 98-107 mmol/L Carbon Dioxide Level 30 20-31 mmol/L Anion Gap 4 L 5-15 Blood Urea Nitrogen 15 9-23 mg/dL Creatinine 0.57 0.550-1.02 mg/dL Glomerular Filtration Rate Calc 87 >90 mL/min BUN/Creatinine Ratio 26.3 H 10.0-20.0 Serum Glucose 144 H 74-106 mg/dL Calcium Level 9.2 8.7-10.4 mg/dL Total Bilirubin 0.8 0.2-1.0 mg/dL Aspartate Amino Transferase (AST) 43 H 13-40 U/L Alanine Aminotransferase (ALT) 18 7-40 U/L Alkaline Phosphatase 137 H 46-116 U/L Total Protein 5.9 5.7-8.2 g/dL Albumin 3.3 3.2-4.8 g/dL Lipase 20 12-53 U/L Assessment/Plan Assessment/Plan Assessment Acute abdominal pain Hypertension Atrial fibrillation Chronic anemia Plan Admit the patient to telemetry to the hospitalist GI consultation Clear liquid diet Resume home medications Continue treatment per orders. Plan discussed with: Patient My Orders Orders - ERMA PATIÑO Procedure Category Date Status Time * Gi Dvh Communication Specialist CONS 07/11/24 Transmitted 21:30 Metoprolol Xl PHA 07/12/24 In Process Succinate (Toprol Xl) 10:00 Levothyroxine Tablet PHA 07/12/24 In Process (Synthroid Tablet) 06:00 Allopurinol Tablet PHA 07/12/24 In Process (Zyloprim Tablet) 10:00 Montelukast Tablet PHA 07/11/24 In Process (Singulair Tablet) 22:00 Basic Metabolic Panel LAB 07/12/24 Logged 04:00 Admit ADMIT 07/11/24 Transmitted 21:30 Hydrocodone-Acet PHA 07/11/24 In Process 5/325mg Tab ([place] 21:30 Ondansetron Hcl PHA 07/11/24 In Process (Zofran) 21:30 Enoxaparin Sodium PHA 07/12/24 In Process (Lovenox) 10:00 Complete Blood Count LAB 07/12/24 Logged 04:00 Condition: Stable JIMMY 07/11/24 In Process 21:30 Acetaminophen Tablet PHA 07/11/24 In Process (Tylenol Tablet) 21:30 Clear Liq Diet DIET 07/12/24 Transmitted Breakfast Bedrest With Bathroom JIMMY 07/11/24 In Process Privileg 21:30 Docusate Sodium PHA 07/11/24 In Process Capsule (Colace 22:00 Electrocardigram EKG 07/11/24 Logged 23:17 * Wound Consult CONS 07/12/24 Transmitted * Card Game Operator CONS 07/12/24 Transmitted Consult Stool Occult Blood LAB 07/12/24 Logged 05:19 Iron Panel LAB 07/12/24 Logged 05:19 Date of Service: Jul 11, 2024 Billing Provider: ERMA PATIÑO Common Visit Codes: [id number] INP/OBS CARE (HIGH) ERMA PATIÑO Jul 12, 2024 05:24
[2024-07-12 06:38] LABS: Basophils # (auto) 0 10 ^3/uL (0-0.2); Basophils % (auto) 0.2 % (0.0-2.0); Chloride 100 mmol/L (98-107); Eosinophils # (auto) 0.1 10 ^3/uL (0-0.8); Eosinophils % (auto) 0.4 % (0.0-7.0); Hematocrit 23.1 % (36.0-46.0); Hemoglobin 7.4 g/dL (12.2-16.2); Lymphocytes # (auto) 0.8 10 ^3/uL (0.4-5.4); Mean Corpuscular Hemoglobin 28.2 pg (28.0-32.0); Mean Corpuscular Hgb Conc. 32.1 g/dL (32.0-36.0); Mean Corpuscular Volume 87.8 fL (80.0-100.0); Monocytes % (auto) 7.6 % (0.0-12.0); Neutrophils # (auto) 11.7 10 ^3/uL (1.6-8.6); Neutrophils % (auto) 85.8 % (37.0-80.0); Nucleated Red Blood Cells % 0.1 %; Platelet Count (auto) 357 10^3/uL (140-450); Potassium 3.8 mmol/L (3.5-5.1); Red Blood Cells 2.63 10^6/uL (4.0-5.20); Red Cell Distribution Width 18.2 % (11.8-14.3); Sodium 135 mmol/L (136-145); White Blood Cell 13.6 10^3/uL (4.4-10.8)
[2024-07-12] MEDS: LEVOTHYROXINE SODIUM 25 MCG TAB PO SCH (06:38)
[2024-07-12 06:39] LABS: Anion Gap 5 (5-15); Calcium 9.2 mg/dL (8.7-10.4); Carbon Dioxide 30 mmol/L (20-31)
[2024-07-12 06:44] LABS: BUN/Creatinine Ratio 28.6 (10.0-20.0); Blood Urea Nitrogen 16 mg/dL (9-23); Glucose 120 mg/dL (74-106)
[2024-07-12 06:47] LABS: % Iron Saturation 17.6 % (15-50)
--- NOTE | 2024-07-12 08:16 | ECG ---
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
[2024-07-12] MEDS: ALLOPURINOL 100 MG TAB PO SCH (09:36)
[2024-07-12] MEDS: METOPROLOL SUCCINATE XL 50 MG TAB PO SCH (09:37)
[2024-07-12] MEDS: ENOXAPARIN SOD 40 MG/0.4 ML SYRINGE SC SCH (09:37)
[2024-07-12] MEDS: FLEET ENEMA(ADULT) 135 ML PR ONE (11:13)
--- NOTE | 2024-07-12 11:52 | DVHINCON2 ---
GI Consult Consult Note GI consult note Date of Consultation: 07/12/2024 Chief Complaint: Abdominal pain Referring Physician: Bryon MENDIETA H&P: 89-year-old female admitted with abdominal pain Patient complains of left lower quadrant abdominal pain No nausea or vomiting. No hematemesis Patient last bowel movement one-week ago, no melena or red blood in stool Patient is having constipation since taking pain medications Patient is status post left hip ORIF 07/01/2024 SP colonoscopy more than 20 years ago WNL per patient Past Medical History: Asthma, AFib, chronic kidney disease, COPD, hypertension and thyroid Past Surgical History: Pacemaker, hysterectomy, tonsillectomy, left hip surgery and hernia repair Social History: NO smoking, drinking ETOH and use of illegal drugs. Family History: Noncontributory Review of Systems: Constitutional: no fever, chill, weight loss Heart: no chest pain, no chest pressure Lung: no cough, no dyspnea with exertion Abdomen: see HPI Physical exam: General: NAD, AAOX3 Chest: lung bartholomew clear to auscultation Heart: RRR, no murmur Abdomen: Mild LLQ tenderness to palpation, +BS Labs: Labs Test 07/12/24 05:54 07/11/24 14:32 Range/Units White Blood Count 13.6 H 4.4-10.8 10^3/uL Red Blood Count 2.63 L 4.0-5.20 10^6/uL Hemoglobin 7.4 L 12.2-16.2 g/dL Hematocrit 23.1 L 36.0-46.0 % Mean Corpuscular Volume 87.8 80.0-100.0 fL Mean Corpuscular Hemoglobin 28.2 28.0-32.0 pg Mean Corpuscular Hemoglobin Concent 32.1 32.0-36.0 g/dL Red Cell Distribution Width 18.2 H 11.8-14.3 % Platelet Count 357 140-450 10^3/uL Mean Platelet Volume 6.6 L 6.9-10.8 fL Neutrophils (%) (Auto) 85.8 H 37.0-80.0 % Lymphocytes (%) (Auto) 6.0 L 10.0-50.0 % Monocytes (%) (Auto) 7.6 0.0-12.0 % Eosinophils (%) (Auto) 0.4 0.0-7.0 % Basophils (%) (Auto) 0.2 0.0-2.0 % Neutrophils # (Auto) 11.7 H 1.6-8.6 10 ^3/uL Lymphocytes # (Auto) 0.8 0.4-5.4 10 ^3/uL Monocytes # (Auto) 1.0 0-1.3 10 ^3/uL Eosinophils # (Auto) 0.1 0-0.8 10 ^3/uL Basophils # (Auto) 0 0-0.2 10 ^3/uL Nucleated Red Blood Cells 0.1 % Sodium Level 135 L 136-145 mmol/L Potassium Level 3.8 3.5-5.1 mmol/L Chloride Level 100 98-107 mmol/L Carbon Dioxide Level 30 20-31 mmol/L Anion Gap 5 5-15 Blood Urea Nitrogen 16 9-23 mg/dL Creatinine 0.56 0.550-1.02 mg/dL Glomerular Filtration Rate Calc 87 >90 mL/min BUN/Creatinine Ratio 28.6 H 10.0-20.0 Serum Glucose 120 H 74-106 mg/dL Calcium Level 9.2 8.7-10.4 mg/dL Iron Level 33 L 50-170 ug/dL Total Iron Binding Capacity 188 L 250-425 ug/dL Percent Iron Saturation 17.6 15-50 % Total Bilirubin 0.8 0.2-1.0 mg/dL Aspartate Amino Transferase (AST) 43 H 13-40 U/L Alanine Aminotransferase (ALT) 18 7-40 U/L Alkaline Phosphatase 137 H 46-116 U/L Total Protein 5.9 5.7-8.2 g/dL Albumin 3.3 3.2-4.8 g/dL Lipase 20 12-53 U/L Imaging: CT abdomen pelvis IMPRESSION: 1. No CT evidence for acute intra-abdominal or intrapelvic process. 2. Mild fecal retention. 3. Interval left proximal femoral ORIF for intertrochanteric fracture persistent moderate muscle edema, subcutaneous hematomas/postsurgical fluid subcutaneous fat stranding. The partially seen fluid collection in the subcutaneous tissues of the left lateral hip is partially imaged. Recommend visual inspection to ensure no developing abscess. Assessment: Abdominal pain possible secondary to recent left hip surgery Constipation SP left hip ORIF Plan: Discussed with Dr. Chirag Blancas enema and lactulose Monitor lab Advance diet as tolerated We will continue to monitor the patient Discussed plan with patient and RN Thank you for this consult Date of Service: Jul 12, 2024 Billing Provider: INNA VENTURA Common Visit Codes: CONSULT ONLY Consultation Codes: [id number] CONSULT <45MIN INNA VENTURA Jul 12, 2024 11:52
--- NOTE | 2024-07-12 14:29 | DVHPN2 ---
Reviewed: Care Plan, H&P, Labs, Medications, Previous Orders, Radiology Changes from previous H/P or p: No Changes Objective Vitals Vital Signs Date Time Temp Pulse Resp B/P (MAP) Pulse Ox O2 Delivery O2 Flow Rate FiO2 07/12/24 09:37 101 121/46 07/12/24 09:00 98.4 20 97 98.4 07/12/24 08:30 Nasal Cannula* 2 28 Intake/Output Intake and Output 07/12/24 07:00 Intake Total 300 ml Output Total 0 ml Balance 300 ml Intake Oral 300 ml Output Urine Total 0 ml Medications Current Medications Medications Dose Ordered Sig/Nubia Route Start Time Stop Time Status Last Admin Dose Admin Metoprolol Succinate 25 mg DAILY PO 07/12/24 10:00 07/12/24 09:37 25 MG Levothyroxine Sodium 25 mcg QAM@0600 PO 07/12/24 06:00 07/12/24 06:38 25 MCG Allopurinol 300 mg DAILY PO 07/12/24 10:00 07/12/24 09:36 300 MG Montelukast Sodium 10 mg HS PO 07/11/24 22:00 07/11/24 23:48 10 MG Acetaminophen/ Hydrocodone Bitart 1 tab Q4HP PRN PO 07/11/24 21:30 07/12/24 11:51 1 TAB Ondansetron HCl 4 mg Q4HP PRN IV 07/11/24 21:30 Enoxaparin Sodium 40 mg DAILY SC 07/12/24 10:00 07/12/24 09:37 40 MG Acetaminophen 650 mg Q6HP PRN PO 07/11/24 21:30 Docusate Sodium 100 mg BID PO 07/11/24 22:00 07/12/24 09:36 100 MG Lactulose 15 ml DAILY PO 07/13/24 10:00 Laboratory Results Laboratory Tests 07/12/24 05:54 Chemistry Test 07/11/24 14:32 07/12/24 05:54 Albumin 3.3 g/dL (3.2-4.8) Calcium Level 9.2 mg/dL (8.7-10.4) 9.2 mg/dL (8.7-10.4) Total Protein 5.9 g/dL (5.7-8.2) Lipid panel Test 07/11/24 14:32 Lipase 20 U/L (12-53) LFT Test 07/11/24 14:32 Alanine Aminotransferase (ALT) 18 U/L (7-40) Alkaline Phosphatase 137 U/L (46-116) H Aspartate Amino Transferase (AST) 43 U/L (13-40) H Total Bilirubin 0.8 mg/dL (0.2-1.0) Microbiology Microbiology Date/Time Source Procedure Growth Status 07/12/24 06:35 Nose MRSA Screen - Final Complete Labs and/or images reviewed: Labs reviewed by me, Image(s) reviewed by me Assessment/Plan Assessment/Plan Acute abdominal pain Constipation: Lactulose, Colace GI consult by Dr. Beard appreciated, CT abdomen pelvis without contrast negative Left intertrochanteric fracture status post ORIF Status post mechanical fall Left frontal superficial laceration Atrial fibrillation, likely persistent (on Eliquis) Presence of single lead permanent pacemaker (Biotronik) Tricuspid valve regurgitation, moderate degree Hypertension Gout : Allopurinol Depression: Zoloft Asthma not on constipation Thyroid disease Gout History of tobacco use Obesity Plan discussed with: Patient Date of Service: Jul 12, 2024 Billing Provider: GHAZAL VENTURA MD Common Visit Codes: [id number] INP/OBS CARE(HIGH) GHAZAL VENTURA MD Jul 12, 2024 14:28
--- NOTE | 2024-07-12 21:18 | DVH ---
INDICATION: 89 years old, Female; STATUS POST LEFT HIP SURGERY PAIN. COMPARISON: CT HEAD WITHOUT CONTRAST on DOS: 06/30/24, CT HEAD WITHOUT CONTRAST on DOS: 08/21/23, CT LS SPINE WO CONTRAST on DOS: 07/28/23 TECHNIQUE: CT of the right was performed without contrast. Volume transverse images were obtained a nd reconstructed in multiple planes using bone and soft tissue algorithms. CONTRAST: None Radiation Dose Information: CT Dose: CTDI volume is 28.8 mGy. Dose-length product is 1080.22 mGy*cm FINDINGS: Postop changes lumbar spine with pedicle screws and rods in place. Nonobstructing 6 mm left renal calculus. Internal fixation device in the left proximal femur with bony fragmentation findings unchanged from C T abdomen and pelvis done 07/11/2024. The joint spaces are normal. There is no fracture, dislocation, or focal osseous lesions. The soft tissues are normal. IMPRESSION: Internal fixation of these proximal left femur with bony fragments and prosthesis unchanged from iZon noé 2023. Pedicle screws and rods in place at L4-L5. 6 mm calcification left kidney with no hydronephrosis.
[2024-07-13] VITALS (8 sets, daily range): BP systolic 121–137; BP diastolic 48–69; PULSE 84–114; RESP 16–22; TEMP 98–98.5; O2SAT 93–100
[2024-07-13] MEDS: LACTULOSE 20Gm/30ML SOLN PO SCH (09:31)
--- NOTE | 2024-07-13 09:57 | DVHPN2 ---
Reviewed: Care Plan, H&P, Labs, Medications, Previous Orders, Radiology Changes from previous H/P or p: No Changes Objective Vitals Vital Signs Date Time Temp Pulse Resp B/P (MAP) Pulse Ox O2 Delivery O2 Flow Rate FiO2 07/13/24 09:28 86 126/69 07/13/24 07:40 Nasal Cannula* 2 07/13/24 05:00 98.0 16 93 98.0 Intake/Output Intake and Output 07/13/24 07:00 Intake Total 500 ml Output Total 1150 ml Balance -650 ml Intake Oral 500 ml Output Urine Total 1150 ml # Bowel Movements 1 Medications Current Medications Medications Dose Ordered Sig/Nubia Route Start Time Stop Time Status Last Admin Dose Admin Metoprolol Succinate 25 mg DAILY PO 07/12/24 10:00 07/13/24 09:28 25 MG Levothyroxine Sodium 25 mcg QAM@0600 PO 07/12/24 06:00 07/13/24 05:21 25 MCG Allopurinol 300 mg DAILY PO 07/12/24 10:00 07/13/24 09:28 300 MG Montelukast Sodium 10 mg HS PO 07/11/24 22:00 07/12/24 21:00 10 MG Acetaminophen/ Hydrocodone Bitart 1 tab Q4HP PRN PO 07/11/24 21:30 07/13/24 09:31 1 TAB Ondansetron HCl 4 mg Q4HP PRN IV 07/11/24 21:30 Enoxaparin Sodium 40 mg DAILY SC 07/12/24 10:00 07/13/24 09:28 40 MG Acetaminophen 650 mg Q6HP PRN PO 07/11/24 21:30 Docusate Sodium 100 mg BID PO 07/11/24 22:00 07/13/24 09:27 100 MG Lactulose 15 ml DAILY PO 07/13/24 10:00 07/13/24 09:31 15 ML Laboratory Results Laboratory Tests 07/12/24 05:54 Microbiology Microbiology Date/Time Source Procedure Growth Status 07/12/24 06:35 Nose MRSA Screen - Final Complete Labs and/or images reviewed: Labs reviewed by me, Image(s) reviewed by me Assessment/Plan Assessment/Plan Acute abdominal pain Constipation: Lactulose, Colace GI consult by Dr. Beard appreciated, CT abdomen pelvis without contrast negative Left intertrochanteric fracture status post ORIF on 07-01-[address] De Leon, CT left hip done on 07/12/2024 is unremarkable, hardware in place, no new fracture Status post mechanical fall Left frontal superficial laceration Atrial fibrillation, likely persistent (on Eliquis) Presence of single lead permanent pacemaker (Biotronik) Tricuspid valve regurgitation, moderate degree Hypertension Gout : Allopurinol Depression: Zoloft Asthma not on constipation Thyroid disease Gout History of tobacco use Obesity Possible [place] [facility] facility placement, we will discuss with the patient's daughter. Plan discussed with: Patient My Orders Orders - GHAZAL VENTURA MD Procedure Category Date Status Time Ct L Hip With Out CT 07/12/24 Resulted Contrast 14:38 * [facility] Machine Feeder CONS 07/12/24 Transmitted Consult Date of Service: Jul 13, 2024 Billing Provider: GHAZAL VENTURA MD Common Visit Codes: [id number] INP/OBS CARE(HIGH) GHAZAL VENTURA MD Jul 13, 2024 09:57
[2024-07-13] MEDS: ACETAMINOPHEN 325 MG TAB PO PRN (13:16)
[2024-07-13] MEDS: FLEET ENEMA(ADULT) 135 ML PR ONE (14:37)
[2024-07-13] MEDS: POLYETHYLENE GLYCOL 17 GM PWDR PO ONE (15:24)
--- NOTE | 2024-07-13 18:52 | DVHPN2 ---
Progress Note - Dictate Date Seen: Jul 13, 2024 Medical Necessity Reason Pt with a Central, PICC or Fol: No Subjective Patient seen at bedside Patient stated she had a bowel movement this morning however the nurse today said it was a small bowel movement She was requesting more laxatives for outpatient Patient is still has mild lower abdominal cramping Hemoglobin stable at 7.4 Iron profile consistent with anemia of chronic disease vital signs Vital Sign Date Time Temp Pulse Resp B/P (MAP) Pulse Ox O2 Delivery O2 Flow Rate FiO2 07/13/24 17:00 98.1 107 18 133/68 (89) 100 98.1 07/13/24 07:40 Nasal Cannula* 2 28 Total Intake and Output 07/12/24 07/12/24 07/13/24 15:00 23:00 07:00 Intake Total 300 ml 200 ml Output Total 800 ml 350 ml Balance -500 ml -150 ml medications Current Medications Medications Dose Ordered Sig/Nubia Route Start Time Stop Time Status Last Admin Dose Admin Metoprolol Succinate 25 mg DAILY PO 07/12/24 10:00 07/13/24 09:28 25 MG Levothyroxine Sodium 25 mcg QAM@0600 PO 07/12/24 06:00 07/13/24 05:21 25 MCG Allopurinol 300 mg DAILY PO 07/12/24 10:00 07/13/24 09:28 300 MG Montelukast Sodium 10 mg HS PO 07/11/24 22:00 07/12/24 21:00 10 MG Acetaminophen/ Hydrocodone Bitart 1 tab Q4HP PRN PO 07/11/24 21:30 07/13/24 09:31 1 TAB Ondansetron HCl 4 mg Q4HP PRN IV 07/11/24 21:30 Enoxaparin Sodium 40 mg DAILY SC 07/12/24 10:00 07/13/24 09:28 40 MG Acetaminophen 650 mg Q6HP PRN PO 07/11/24 21:30 07/13/24 13:16 650 MG Docusate Sodium 100 mg BID PO 07/11/24 22:00 07/13/24 09:27 100 MG Lactulose 15 ml DAILY PO 07/13/24 10:00 07/13/24 09:31 15 ML objective General: NAD, AAOX3 Chest: lung bartholomew clear to auscultation Heart: RRR, no murmur Abdomen: Mild LLQ tenderness to palpation, +BS laboratory and microbiology Laboratory Tests 07/12/24 05:54 Test 07/12/24 05:54 Range/Units Serum Glucose 120 H 74-106 mg/dL CT SCAN IMPRESSION: 1. No CT evidence for acute intra-abdominal or intrapelvic process. 2. Mild fecal retention. 3. Interval left proximal femoral ORIF for intertrochanteric fracture persistent moderate muscle edema, subcutaneous hematomas/postsurgical fluid subcutaneous fat stranding. The partially seen fluid collection in the subcutaneous tissues of the left lateral hip is partially imaged. Recommend visual inspection to ensure no developing abscess. Problems(with codes): (1) Anemia of chronic disease (2) Intractable abdominal pain (3) Hip fracture, left Prognosis Plan MiraLax 17 g p.o. daily Continue lactulose 30 mL p.o. twice a day One tap water enema Request orthopedics to re-evaluate her left hip as recommended by Radiology to ensure there was no developing abscess Plan discussed with: Patient, Other (Nurse) SESAR HOWARD MD Jul 13, 2024 18:52
[2024-07-14] VITALS (8 sets, daily range): BP systolic 104–145; BP diastolic 46–68; PULSE 73–110; RESP 17–20; TEMP 97.7–98.7; O2SAT 95–97
--- NOTE | 2024-07-14 14:28 | DVHINCON2 ---
Date Seen: Jul 14, 2024 Referring Physician Hospitalist. Reason for Consultation I am assuming the care of the patient from today onwards as per HMO requested. History of Present Illness 89-year-old female with a known history of chronic asthma, chronic AFib, CKD, COPD, hypertension, hypothyroidism, status post permanent pacemaker placement, recent left hip surgery patient was under the hospital with intractable abdominal pain and no bowel movements. Eventually patient was was admitted started on bowel regimen. Patient was recently had left hip surgery. Patient currently denies any complaints. Past Medical History Hypertension, pacemaker placement, asthma, Past Surgical History Status post left hip surgery. Family History: Diabetes mellitus G8 MOTHER FH: heart attack G8 FATHER Allergies: Coded Allergies: Clonidine (Verified Allergy, Severe, Bradycardia, 02/16/21) Methylprednisolone (Unverified Allergy, Severe, Throat closes up, 02/16/21) Morphine (Unverified Allergy, Severe, Anaphylaxis, 02/16/21) Penicillins (Verified Allergy, Severe, SOB, rash, 02/16/21) Home Meds Reported Medications Lorazepam (ATIVAN TABLET) 0.5 Mg Tb, 1 TAB PO HS PRN for FOR INSOMNIA, #30 TAB 07/04/24 Temazepam (Restoril) 15 Mg Cp, 1 CAP PO HS, #30 CAP 1 Refill 07/04/24 Melatonin (KP MELATONIN) 3 Mg Tab, 5 MG PO HS, TAB 07/04/24 Sertraline Hcl (Sertraline Hcl) 50 Mg Tab, 100 MG PO HS for 30 Days, MG 07/04/24 Aspirin (Aspirin Ec) 81 Mg Tab, 325 MG PO DAILY, TAB 07/04/24 Theophylline (Theophylline Er) 300 Mg Tab, 300 MG PO DAILY for 30 Days, MG 07/04/24 Montelukast Sodium (MONTELUKAST SODIUM) 10 Mg Tab, 1 TAB PO DAILY, #30 TAB 5 Refills 07/04/24 Metoprolol Tartrate (Metoprolol Tartrate) 100 Mg Tab, 100 MG PO DAILY for 30 Days, MG 07/04/24 Allopurinol (Allopurinol) 300 Mg Tab, 300 MG PO DAILY for 30 Days, MG 07/04/24 Levothyroxine Sodium (Levothyroxine Sodium) 25 Mcg Tab, 25 MCG PO DAILY, TAB 02/16/21 Review of Systems Twelve review of system were negative except mentioned above. Vital Signs Vital Signs Date Time Temp Pulse Resp B/P (MAP) Pulse Ox O2 Delivery O2 Flow Rate FiO2 07/14/24 13:00 98.0 73 17 123/68 (86) 95 98.0 07/14/24 07:59 Room Air* 0 21 Physical Exam HEENT pupils are reactive Neck is supple CV is S1-S2 regular rate and rhythm Respiratory are clear GI posterior portion Extremity no edema SLEDGER no motor deficit Labs/Diagnostic Data Labs Test 07/12/24 05:54 07/11/24 14:32 Range/Units White Blood Count 13.6 H 4.4-10.8 10^3/uL Red Blood Count 2.63 L 4.0-5.20 10^6/uL Hemoglobin 7.4 L 12.2-16.2 g/dL Hematocrit 23.1 L 36.0-46.0 % Mean Corpuscular Volume 87.8 80.0-100.0 fL Mean Corpuscular Hemoglobin 28.2 28.0-32.0 pg Mean Corpuscular Hemoglobin Concent 32.1 32.0-36.0 g/dL Red Cell Distribution Width 18.2 H 11.8-14.3 % Platelet Count 357 140-450 10^3/uL Mean Platelet Volume 6.6 L 6.9-10.8 fL Neutrophils (%) (Auto) 85.8 H 37.0-80.0 % Lymphocytes (%) (Auto) 6.0 L 10.0-50.0 % Monocytes (%) (Auto) 7.6 0.0-12.0 % Eosinophils (%) (Auto) 0.4 0.0-7.0 % Basophils (%) (Auto) 0.2 0.0-2.0 % Neutrophils # (Auto) 11.7 H 1.6-8.6 10 ^3/uL Lymphocytes # (Auto) 0.8 0.4-5.4 10 ^3/uL Monocytes # (Auto) 1.0 0-1.3 10 ^3/uL Eosinophils # (Auto) 0.1 0-0.8 10 ^3/uL Basophils # (Auto) 0 0-0.2 10 ^3/uL Nucleated Red Blood Cells 0.1 % Sodium Level 135 L 136-145 mmol/L Potassium Level 3.8 3.5-5.1 mmol/L Chloride Level 100 98-107 mmol/L Carbon Dioxide Level 30 20-31 mmol/L Anion Gap 5 5-15 Blood Urea Nitrogen 16 9-23 mg/dL Creatinine 0.56 0.550-1.02 mg/dL Glomerular Filtration Rate Calc 87 >90 mL/min BUN/Creatinine Ratio 28.6 H 10.0-20.0 Serum Glucose 120 H 74-106 mg/dL Calcium Level 9.2 8.7-10.4 mg/dL Iron Level 33 L 50-170 ug/dL Total Iron Binding Capacity 188 L 250-425 ug/dL Percent Iron Saturation 17.6 15-50 % Total Bilirubin 0.8 0.2-1.0 mg/dL Aspartate Amino Transferase (AST) 43 H 13-40 U/L Alanine Aminotransferase (ALT) 18 7-40 U/L Alkaline Phosphatase 137 H 46-116 U/L Total Protein 5.9 5.7-8.2 g/dL Albumin 3.3 3.2-4.8 g/dL Lipase 20 12-53 U/L Microbiology Date/Time Source Procedure Growth Status 07/12/24 06:35 Nose MRSA Screen - Final Complete Assessment 89-year-old female with a known history of chronic asthma, status post recent left hip surgery presented to the hospital with abdominal pain found to have 1. Abdominal pain 2. Constipation 3. Recent left hip surgery 4. Hypothyroidism 5. chronic asthma -bowel regimen, physical therapy evaluation and treatment, discharge plan Plan discussed with: Patient Date of Service: Jul 14, 2024 Billing Provider: DEDRICK MACIAS MD Common Visit Codes: NOT BILLABLE DEDRICK MACIAS MD Jul 14, 2024 14:28
--- NOTE | 2024-07-14 20:17 | DVHPN2 ---
Progress Note - Dictate Date Seen: Jul 14, 2024 Medical Necessity Reason Pt with a Central, PICC or Fol: No Subjective Patient seen at bedside Patient had multiple bowel movements last night some large Her abdomen is less distended and less painful Hemoglobin was stable at 7.4 Iron profile consistent with anemia of chronic disease vital signs Vital Sign Date Time Temp Pulse Resp B/P (MAP) Pulse Ox O2 Delivery O2 Flow Rate FiO2 07/14/24 16:27 97.7 110 18 104/54 (71) 95 97.7 07/14/24 07:59 Room Air* 0 21 Total Intake and Output 07/13/24 07/13/24 07/14/24 15:00 23:00 07:00 Intake Total 960 ml 225 ml Output Total 4 ml Balance 956 ml 225 ml medications Current Medications Medications Dose Ordered Sig/Nubia Route Start Time Stop Time Status Last Admin Dose Admin Metoprolol Succinate 25 mg DAILY PO 07/12/24 10:00 07/14/24 10:26 25 MG Levothyroxine Sodium 25 mcg QAM@0600 PO 07/12/24 06:00 07/14/24 05:10 25 MCG Allopurinol 300 mg DAILY PO 07/12/24 10:00 07/14/24 10:27 300 MG Montelukast Sodium 10 mg HS PO 07/11/24 22:00 07/13/24 21:19 10 MG Acetaminophen/ Hydrocodone Bitart 1 tab Q4HP PRN PO 07/11/24 21:30 07/14/24 17:44 1 TAB Ondansetron HCl 4 mg Q4HP PRN IV 07/11/24 21:30 Enoxaparin Sodium 40 mg DAILY SC 07/12/24 10:00 07/14/24 10:26 40 MG Acetaminophen 650 mg Q6HP PRN PO 07/11/24 21:30 07/13/24 13:16 650 MG Docusate Sodium 100 mg BID PO 07/11/24 22:00 07/14/24 10:27 100 MG Lactulose 15 ml DAILY PO 07/13/24 10:00 07/14/24 10:26 15 ML objective General: NAD, AAOX3 Chest: lung bartholomew clear to auscultation Heart: RRR, no murmur Abdomen: Mild LLQ tenderness to palpation, +BS laboratory and microbiology Laboratory Tests 07/12/24 05:54 Test 07/12/24 05:54 Range/Units Serum Glucose 120 H 74-106 mg/dL Problems(with codes): (1) Constipation (2) Hip fracture, left (3) Anemia of chronic disease (4) Intractable abdominal pain Prognosis Plan Continue MiraLax as needed Stool softeners daily Advance diet as tolerated Physical therapy Discharge planning as per hospitalist Dietary Evaluation Review Comments: 1) Advance pt diet when medically jfeasible 2) Consider ABDULKADIR 1 pkt BID for wounds 3) Continue current plan of care Expected Outcomes/Goals: 1) Pt diet to advance 2) F/U in 3-5 days Plan discussed with: Patient SESAR HOWARD MD Jul 14, 2024 20:17
[2024-07-15] VITALS (8 sets, daily range): BP systolic 103–139; BP diastolic 40–88; PULSE 73–97; RESP 16–19; TEMP 97.1–99.1; O2SAT 90–98
[2024-07-15] MEDS: LIDOCAINE HCL 5 % TOP OINT 35 GM TOP PRN (09:30)
--- NOTE | 2024-07-15 12:26 | DVHPN2 ---
Date of Progress Note Date of Progress Note Date of Progress Note: 07/15/24 Date of Admission Date of Admission Date of Admission: Date of Admission: Jul 11, 2024 at 21:30 Past Surgical History Past Surgical History Past Surgical History ORIF left hip IT fracture, approx 2 wks ago, Dr De Leon Family History Family History Family History: Diabetes mellitus G8 MOTHER FH: heart attack G8 FATHER Allergies: Coded Allergies: Clonidine (Verified Allergy, Severe, Bradycardia, 02/16/21) Methylprednisolone (Unverified Allergy, Severe, Throat closes up, 02/16/21) Morphine (Unverified Allergy, Severe, Anaphylaxis, 02/16/21) Penicillins (Verified Allergy, Severe, SOB, rash, 02/16/21) Home Meds Reported Medications Lorazepam (ATIVAN TABLET) 0.5 Mg Tb, 1 TAB PO HS PRN for FOR INSOMNIA, #30 TAB 07/04/24 Temazepam (Restoril) 15 Mg Cp, 1 CAP PO HS, #30 CAP 1 Refill 07/04/24 Melatonin (KP MELATONIN) 3 Mg Tab, 5 MG PO HS, TAB 07/04/24 Sertraline Hcl (Sertraline Hcl) 50 Mg Tab, 100 MG PO HS for 30 Days, MG 07/04/24 Aspirin (Aspirin Ec) 81 Mg Tab, 325 MG PO DAILY, TAB 07/04/24 Theophylline (Theophylline Er) 300 Mg Tab, 300 MG PO DAILY for 30 Days, MG 07/04/24 Montelukast Sodium (MONTELUKAST SODIUM) 10 Mg Tab, 1 TAB PO DAILY, #30 TAB 5 Refills 07/04/24 Metoprolol Tartrate (Metoprolol Tartrate) 100 Mg Tab, 100 MG PO DAILY for 30 Days, MG 07/04/24 Allopurinol (Allopurinol) 300 Mg Tab, 300 MG PO DAILY for 30 Days, MG 07/04/24 Levothyroxine Sodium (Levothyroxine Sodium) 25 Mcg Tab, 25 MCG PO DAILY, TAB 02/16/21 Current Medications Current Medications Medications (Trade) Dose Ordered Sig/Nubia Route PRN Reason Start Time Stop Time Status Last Admin Lidocaine HCl (Xylocaine 5% Topical Ointment) 1 applic Q4HPRN PRN TOP RECTAL PAIN 07/15/24 09:15 07/15/24 09:30 Physical Examination General Examination: Last Vital sign Vital Signs Date Time Temp Pulse Resp B/P (MAP) Pulse Ox O2 Delivery O2 Flow Rate FiO2 07/15/24 11:46 97.1 74 19 122/57 (78) 94 97.1 07/14/24 20:00 Nasal Cannula* 2 28 General: General: No apparent distress, appears comfortable. Cooperative. Extremities: left buttock, incisions closed, mild drainage, serosanguanous, no gross puss NVI Skin: intact Neurological Examination: Neurological Examination: Mental Status: Cranial Nerves: Motor Examination: Reflexes: Sensory: Coordination: Gait: NVI Labs: Labs: Laboratory Tests Test 07/11/24 14:32 07/12/24 05:54 Range/Units White Blood Count 14.1 H 13.6 H 4.4-10.8 10^3/uL Red Blood Count 2.75 L 2.63 L 4.0-5.20 10^6/uL Hemoglobin 7.7 L 7.4 L 12.2-16.2 g/dL Hematocrit 23.7 L 23.1 L 36.0-46.0 % Mean Corpuscular Volume 86.4 87.8 80.0-100.0 fL Mean Corpuscular Hemoglobin 28.1 28.2 28.0-32.0 pg Mean Corpuscular Hemoglobin Concent 32.5 32.1 32.0-36.0 g/dL Red Cell Distribution Width 18.5 H 18.2 H 11.8-14.3 % Platelet Count 366 357 140-450 10^3/uL Mean Platelet Volume 7.0 6.6 L 6.9-10.8 fL Neutrophils (%) (Auto) 86.0 H 85.8 H 37.0-80.0 % Lymphocytes (%) (Auto) 5.3 L 6.0 L 10.0-50.0 % Monocytes (%) (Auto) 8.0 7.6 0.0-12.0 % Eosinophils (%) (Auto) 0.5 0.4 0.0-7.0 % Basophils (%) (Auto) 0.2 0.2 0.0-2.0 % Neutrophils # (Auto) 12.1 H 11.7 H 1.6-8.6 10 ^3/uL Lymphocytes # (Auto) 0.7 0.8 0.4-5.4 10 ^3/uL Monocytes # (Auto) 1.1 1.0 0-1.3 10 ^3/uL Eosinophils # (Auto) 0.1 0.1 0-0.8 10 ^3/uL Basophils # (Auto) 0 0 0-0.2 10 ^3/uL Nucleated Red Blood Cells 0.1 0.1 % Sodium Level 132 L 135 L 136-145 mmol/L Potassium Level 4.0 3.8 3.5-5.1 mmol/L Chloride Level 98 100 98-107 mmol/L Carbon Dioxide Level 30 30 20-31 mmol/L Anion Gap 4 L 5 5-15 Blood Urea Nitrogen 15 16 9-23 mg/dL Creatinine 0.57 0.56 0.550-1.02 mg/dL Glomerular Filtration Rate Calc 87 87 >90 mL/min BUN/Creatinine Ratio 26.3 H 28.6 H 10.0-20.0 Serum Glucose 144 H 120 H 74-106 mg/dL Calcium Level 9.2 9.2 8.7-10.4 mg/dL Total Bilirubin 0.8 0.2-1.0 mg/dL Aspartate Amino Transferase (AST) 43 H 13-40 U/L Alanine Aminotransferase (ALT) 18 7-40 U/L Alkaline Phosphatase 137 H 46-116 U/L Total Protein 5.9 5.7-8.2 g/dL Albumin 3.3 3.2-4.8 g/dL Lipase 20 12-53 U/L Iron Level 33 L 50-170 ug/dL Total Iron Binding Capacity 188 L 250-425 ug/dL Percent Iron Saturation 17.6 15-50 % Imaging Imaging: CT left hip, IT fracture s/p ORIF with hematoma Assessment/Plan Assessment/Plan Assessment and Plan:Corinne Leo is a 89 year old female adm 07/11/24 with left buttock and thigh swelling, minimal drainage, CT c/w hematoma, post op/post fx Discusssed patient with operating surgeon, Dr De Leon, he recommmends conservative care on broad spectrum abx and I and D if clinical condition worsens will transfer coverage to Dr De Leon. Plan discussed with: Patient JANAY ALEGRIA MD Jul 15, 2024 12:26
--- NOTE | 2024-07-15 14:44 | DVHPN2 ---
Subjective Nighttime meds noted. Patient's CT left hip shows possible hematoma underlying fluid collection can not be excluded, Infectious Disease will be consulted and IR will be considered for aspiration. Reviewed: Care Plan, H&P, Labs, Medications, Previous Orders, Radiology Changes from previous H/P or p: No Changes Objective Vitals Vital Signs Date Time Temp Pulse Resp B/P (MAP) Pulse Ox O2 Delivery O2 Flow Rate FiO2 07/15/24 11:46 97.1 74 19 122/57 (78) 94 97.1 07/15/24 08:00 Nasal Cannula* 2 28 Intake/Output Intake and Output 07/15/24 07:00 Intake Total 815 ml Balance 815 ml Intake Oral 815 ml # Voids 4 # Bowel Movements 2 Exam HEENT pupils are reactive Neck is supple CV is S1-S2 regular rate and rhythm Respiratory clear GI positive bowel sounds Extremity no pedal edema [employer] no motor deficit Medications Current Medications Medications Dose Ordered Sig/Nubia Route Start Time Stop Time Status Last Admin Dose Admin Metoprolol Succinate 25 mg DAILY PO 07/12/24 10:00 07/15/24 10:08 25 MG Levothyroxine Sodium 25 mcg QAM@0600 PO 07/12/24 06:00 07/15/24 06:32 25 MCG Allopurinol 300 mg DAILY PO 07/12/24 10:00 07/15/24 10:08 300 MG Montelukast Sodium 10 mg HS PO 07/11/24 22:00 07/14/24 20:57 10 MG Acetaminophen/ Hydrocodone Bitart 1 tab Q4HP PRN PO 07/11/24 21:30 07/15/24 14:21 1 TAB Ondansetron HCl 4 mg Q4HP PRN IV 07/11/24 21:30 Enoxaparin Sodium 40 mg DAILY SC 07/12/24 10:00 07/15/24 10:08 40 MG Acetaminophen 650 mg Q6HP PRN PO 07/11/24 21:30 07/13/24 13:16 650 MG Docusate Sodium 100 mg BID PO 07/11/24 22:00 07/15/24 10:07 100 MG Lactulose 15 ml DAILY PO 07/13/24 10:00 07/15/24 10:07 15 ML Lidocaine HCl 1 applic Q4HPRN PRN TOP 07/15/24 09:15 07/15/24 14:21 1 APPLIC Laboratory Results Laboratory Tests 07/12/24 05:54 Microbiology Microbiology Date/Time Source Procedure Growth Status 07/12/24 06:35 Nose MRSA Screen - Final Complete Assessment/Plan Assessment/Plan 89-year-old female with a known history of chronic asthma, status post recent left hip surgery presented to the hospital with abdominal pain found to have 1. Abdominal pain 2. Constipation 3. Recent left hip surgery, ruled out left hip fluid collection 4. Hypothyroidism 5. chronic asthma -IR consult for aspiration of the left hip fluid collection, infectious Disease consultation -physical therapy evaluation and treatment Plan discussed with: Patient My Orders Orders - DEDRICK MACIAS MD Procedure Category Date Status Time Pt Request For Service PT 07/15/24 Logged 12:55 * Infectious [place]- CONS 07/15/24 Transmitted [place] 13:54 Date of Service: Jul 15, 2024 Billing Provider: DEDRICK MACIAS MD Common Visit Codes: NOT BILLABLE DEDRICK MACIAS MD Jul 15, 2024 14:44
--- NOTE | 2024-07-15 15:31 | DVHINCON2 ---
Date of service: Jul 15, [address] Nieves Reason for Consultation possible infected hematoma History of Present Illness Patient is a 89-year-old female presents to the hospital for evaluation of abdominal pain. Patient reports that she has been experiencing an intermittent sharp left lower quadrant abdominal pain for the past 6 days. She is s/p ORIF from fracture of hip two weeks prior to admission and now presents with abdominal and hip pain seen by Ortho, recommended conservative management with IV antibiotics, ID consulted to evaluate She denies any nausea, vomiting, fever or chills. No other acute complaints reported. She also reports mild left hip tenderness. She had left hip surgery recently. Patient's CT left hip shows possible hematoma underlying fluid collection can not be excluded. MRSA screening: Negative Past Medical History Patient's past medical history is significant for asthma, AFib, chronic kidney disease, COPD, hypertension and thyroid Past Surgical History Pacemaker, hysterectomy, tonsillectomy, left hip surgery and hernia repair Family History: Diabetes mellitus G8 MOTHER FH: heart attack G8 FATHER Social History Smoke: Quit ALCOHOL: none Drugs: None Allergies: Coded Allergies: Clonidine (Verified Allergy, Severe, Bradycardia, 02/16/21) Methylprednisolone (Unverified Allergy, Severe, Throat closes up, 02/16/21) Morphine (Unverified Allergy, Severe, Anaphylaxis, 02/16/21) Penicillins (Verified Allergy, Severe, SOB, rash, 02/16/21) Home Meds Reported Medications Lorazepam (ATIVAN TABLET) 0.5 Mg Tb, 1 TAB PO HS PRN for FOR INSOMNIA, #30 TAB 07/04/24 Temazepam (Restoril) 15 Mg Cp, 1 CAP PO HS, #30 CAP 1 Refill 07/04/24 Melatonin (KP MELATONIN) 3 Mg Tab, 5 MG PO HS, TAB 07/04/24 Sertraline Hcl (Sertraline Hcl) 50 Mg Tab, 100 MG PO HS for 30 Days, MG 07/04/24 Aspirin (Aspirin Ec) 81 Mg Tab, 325 MG PO DAILY, TAB 07/04/24 Theophylline (Theophylline Er) 300 Mg Tab, 300 MG PO DAILY for 30 Days, MG 07/04/24 Montelukast Sodium (MONTELUKAST SODIUM) 10 Mg Tab, 1 TAB PO DAILY, #30 TAB 5 Refills 07/04/24 Metoprolol Tartrate (Metoprolol Tartrate) 100 Mg Tab, 100 MG PO DAILY for 30 Days, MG 07/04/24 Allopurinol (Allopurinol) 300 Mg Tab, 300 MG PO DAILY for 30 Days, MG 07/04/24 Levothyroxine Sodium (Levothyroxine Sodium) 25 Mcg Tab, 25 MCG PO DAILY, TAB 02/16/21 Current Medications Current Medications Medications (Trade) Dose Ordered Sig/Nubia Route PRN Reason Start Time Stop Time Status Last Admin Lidocaine HCl (Xylocaine 5% Topical Ointment) 1 applic Q4HPRN PRN TOP RECTAL PAIN 07/15/24 09:15 07/15/24 14:21 Review of Systems General: No Fever, chills, night sweats or weight loss HEENT: No Sinus pain, headache, vision changes or sore throat Respiratory: No Cough, dyspnea, sputum production Cardiovascular: No Chest pain, palpitations or leg edema Gastrointestinal: No Nausea, vomiting, diarrhea, Reports abdominal pain Genitourinary: No Dysuria, urinary frequency, hematuria, pelvic pain Skin: No Rashes, ulcers, abscesses, redness or swelling Musculoskeletal: No Joint pain, muscle pain or swelling Neurologic: No Altered mental status, headaches or focal neurological deficits Psychiatric: No Anxiety, depression or confusion Vital Signs Vital Signs Date Time Temp Pulse Resp B/P (MAP) Pulse Ox O2 Delivery O2 Flow Rate FiO2 07/15/24 11:46 97.1 74 19 122/57 (78) 94 97.1 07/15/24 08:00 Nasal Cannula* 2 28 Physical Exam Gen: Patient is 89-year-old female in mild distress Skin: Warm, dry, normal color and texture, no rash. HEENT: Normocephalic atraumatic, mucous membranes moist and pink. Neck: Cervical and supraclavicular nodes normal without enlargement, trachea is midline, thyroid gland is normal without masses. Pulmonary: Clear to auscultation and percussion bilaterally. Cardiac: Regular rate and rhythm. No murmur Abdomen: Soft, left lower quadrant tenderness, nondistended, bowel sounds present all 4 quadrants, no guarding, no rigidity, no organomegaly. Extremitiesleft hip decreased ROM, thigh swelling and tenderness Neuro: Cranial nerves II through XII grossly intact, normal affect and speech, no focal motor deficits. Labs/Diagnostic Data Labs Test 07/12/24 05:54 11/10/24 14:32 Range/Units White Blood Count 13.6 H 4.4-10.8 10^3/uL Red Blood Count 2.63 L 4.0-5.20 10^6/uL Hemoglobin 7.4 L 12.2-16.2 g/dL Hematocrit 23.1 L 36.0-46.0 % Mean Corpuscular Volume 87.8 80.0-100.0 fL Mean Corpuscular Hemoglobin 28.2 28.0-32.0 pg Mean Corpuscular Hemoglobin Concent 32.1 32.0-36.0 g/dL Red Cell Distribution Width 18.2 H 11.8-14.3 % Platelet Count 357 140-450 10^3/uL Mean Platelet Volume 6.6 L 6.9-10.8 fL Neutrophils (%) (Auto) 85.8 H 37.0-80.0 % Lymphocytes (%) (Auto) 6.0 L 10.0-50.0 % Monocytes (%) (Auto) 7.6 0.0-12.0 % Eosinophils (%) (Auto) 0.4 0.0-7.0 % Basophils (%) (Auto) 0.2 0.0-2.0 % Neutrophils # (Auto) 11.7 H 1.6-8.6 10 ^3/uL Lymphocytes # (Auto) 0.8 0.4-5.4 10 ^3/uL Monocytes # (Auto) 1.0 0-1.3 10 ^3/uL Eosinophils # (Auto) 0.1 0-0.8 10 ^3/uL Basophils # (Auto) 0 0-0.2 10 ^3/uL Nucleated Red Blood Cells 0.1 % Sodium Level 135 L 136-145 mmol/L Potassium Level 3.8 3.5-5.1 mmol/L Chloride Level 100 98-107 mmol/L Carbon Dioxide Level 30 20-31 mmol/L Anion Gap 5 5-15 Blood Urea Nitrogen 16 9-23 mg/dL Creatinine 0.56 0.550-1.02 mg/dL Glomerular Filtration Rate Calc 87 >90 mL/min BUN/Creatinine Ratio 28.6 H 10.0-20.0 Serum Glucose 120 H 74-106 mg/dL Calcium Level 9.2 8.7-10.4 mg/dL Iron Level 33 L 50-170 ug/dL Total Iron Binding Capacity 188 L 250-425 ug/dL Percent Iron Saturation 17.6 15-50 % Total Bilirubin 0.8 0.2-1.0 mg/dL Aspartate Amino Transferase (AST) 43 H 13-40 U/L Alanine Aminotransferase (ALT) 18 7-40 U/L Alkaline Phosphatase 137 H 46-116 U/L Total Protein 5.9 5.7-8.2 g/dL Albumin 3.3 3.2-4.8 g/dL Lipase 20 12-53 U/L Microbiology Date/Time Source Procedure Growth Status 07/12/24 06:35 Nose MRSA Screen - Final Complete Assessment Patient is a 89-year-old female presents to the hospital for abdominal pain and left hip tenderness r/o Left hip prosthetic joint infection r/o infected hematoma s/p ORIF left hip Acute abdominal pain Hypertension Atrial fibrillation Chronic anemia Recommendations: --Intervention radiology consult to aspirate fluid, sent for analysis and culture --Hold antibiotics for now --We will monitor plan discussed with Dr Nieves Thank you for consult. Plan discussed with: SCOTT Velez MD Jul 15, 2024 15:31
--- NOTE | 2024-07-15 21:40 | DVHPN2 ---
Progress Note - Dictate Date Seen: Jul 15, 2024 Medical Necessity Reason Pt with a Central, PICC or Fol: No Subjective Patient seen at bedside She was complaining of moderate amount of rectal pain A rectal examination was performed and a large amount of digital disimpaction and removal of rectal stool was done There was no mucosal tear a prolapse of the hemorrhoids Patient's CT left hip shows possible hematoma underlying fluid collection can not be excluded, Infectious Disease was consulted and IR will be considered for aspiration. vital signs Vital Sign Date Time Temp Pulse Resp B/P (MAP) Pulse Ox O2 Delivery O2 Flow Rate FiO2 07/15/24 20:33 98.3 91 18 104/40 (61) 96 98.3 07/15/24 08:00 Nasal Cannula* 2 28 Total Intake and Output 07/14/24 07/14/24 07/15/24 15:00 23:00 07:00 Intake Total 615 ml 200 ml Balance 615 ml 200 ml medications Current Medications Medications Dose Ordered Sig/Nubia Route Start Time Stop Time Status Last Admin Dose Admin Metoprolol Succinate 25 mg DAILY PO 07/12/24 10:00 07/15/24 10:08 25 MG Levothyroxine Sodium 25 mcg QAM@0600 PO 07/12/24 06:00 07/15/24 06:32 25 MCG Allopurinol 300 mg DAILY PO 07/12/24 10:00 07/15/24 10:08 300 MG Montelukast Sodium 10 mg HS PO 07/11/24 22:00 07/14/24 20:57 10 MG Acetaminophen/ Hydrocodone Bitart 1 tab Q4HP PRN PO 07/11/24 21:30 07/15/24 14:21 1 TAB Ondansetron HCl 4 mg Q4HP PRN IV 07/11/24 21:30 Enoxaparin Sodium 40 mg DAILY SC 07/12/24 10:00 07/15/24 10:08 40 MG Acetaminophen 650 mg Q6HP PRN PO 07/11/24 21:30 07/13/24 13:16 650 MG Docusate Sodium 100 mg BID PO 07/11/24 22:00 07/15/24 10:07 100 MG Lactulose 15 ml DAILY PO 07/13/24 10:00 07/15/24 10:07 15 ML Lidocaine HCl 1 applic Q4HPRN PRN TOP 07/15/24 09:15 07/15/24 14:21 1 APPLIC objective General: NAD, AAOX3 Chest: lung bartholomew clear to auscultation Heart: RRR, no murmur Abdomen: Mild LLQ tenderness to palpation, +BS Rectal examination showed fecal impaction and digital disimpaction was done laboratory and microbiology Laboratory Tests 07/12/24 05:54 Test 07/12/24 05:54 Range/Units Serum Glucose 120 H 74-106 mg/dL Problems(with codes): (1) Rectal pain (2) Impacted stool in rectum (3) Constipation (4) Hip fracture, left (5) Anemia of chronic disease (6) GI bleed (7) Abdominal pain (8) Proctitis Prognosis Plan Advance diet as tolerated Continue laxatives including MiraLax and lactulose Local anorectal care with xylocaine ointment 5% apply 4 times a day and Anusol HC rectal suppositories Dietary Evaluation Review Comments: 1) Advance pt diet when medically jfeasible 2) Consider ABDULKADIR 1 pkt BID for wounds 3) Continue current plan of care Expected Outcomes/Goals: 1) Pt diet to advance 2) F/U in 3-5 days Plan discussed with: Patient, Other (Nurse) SESAR HOWARD MD Jul 15, 2024 21:40
[2024-07-16] VITALS (7 sets, daily range): BP systolic 103–127; BP diastolic 42–63; PULSE 66–99; RESP 16–20; TEMP 97.2–98.4; O2SAT 96–100
--- NOTE | 2024-07-16 08:12 | DVH ---
Exam: US LEFT LOWER EXTREMITY ULTRASOUN Date: 07/16/2024 07:24 AM Clinical History: POSSIBLE FLUID COLLECTION TO LEFT HIP Comparison: None Technique: Targeted sonographic evaluation of the soft tissues of the left hip was obtained utilizing grayscal e and color Doppler imaging. Findings: 4 x 2.2 x 3 cm fluid in left hip. IMPRESSION: 4 x 2.2 x 3 cm left hip effusion
[2024-07-16 09:22] LABS: INR 1.15 (0.9-1.15); Partial Thromboplastin Time 29.7 SEC (24.5-34.5); Prothrombin Time 12.1 sec (9.3-11.8)
--- NOTE | 2024-07-16 09:35 | DVH ---
US US GUIDANCE FOR NEEDLE PLACEME, HISTORY: LT HIP DRAINAGE PROCEDURE: An informed consent was obtained. The patient was placed supine on the bed. The left hip f luid collection was localized with ultrasound and the overlying skin prepped with chlorhexidine which was allowed to dry and draped in the usual sterile fashion. Time out was performed and infiltrated w ith 1% Xylocaine. With US guidance, 19-gauge centesis needle catheter was advanced into the fluid col lection. Approximately 7 cc of bloody fluid was aspirated. No immediate complication was identified . FINDINGS: Limited US scan of through the left hip demonstrates a fluid collection in the subcutaneous tissue. Collection appears complex. IMPRESSION: US guided aspiration of a left hip hematoma.
--- NOTE | 2024-07-16 10:56 | DVHPN2 ---
Progress Note - Dictate Date Seen: Jul 16, 2024 Medical Necessity Reason Pt with a Central, PICC or Fol: No Subjective Patient was seen and evaluated at bedside She was complaining of moderate amount of rectal pain, [place] given. A rectal examination was performed and a large amount of digital disimpaction and removal of rectal stool was done There was no mucosal tear a prolapse of the hemorrhoids 07/16, Lower extremity US revealed: 4 x 2.2 x 3 cm left hip effusion CT left hip shows: Possible hematoma underlying fluid collection can not be excluded. vital signs Vital Sign Date Time Temp Pulse Resp B/P (MAP) Pulse Ox O2 Delivery O2 Flow Rate FiO2 07/16/24 09:00 98.0 74 16 109/50 (69) 97 98.0 07/16/24 08:00 Nasal Cannula* 2 28 Total Intake and Output 07/15/24 07/15/24 07/16/24 15:00 23:00 07:00 Intake Total 800 ml 200 ml Output Total 1000 ml Balance -200 ml 200 ml medications Current Medications Medications Dose Ordered Sig/Nubia Route Start Time Stop Time Status Last Admin Dose Admin Metoprolol Succinate 25 mg DAILY PO 07/12/24 10:00 07/15/24 10:08 25 MG Levothyroxine Sodium 25 mcg QAM@0600 PO 07/12/24 06:00 07/16/24 06:17 25 MCG Allopurinol 300 mg DAILY PO 07/12/24 10:00 07/15/24 10:08 300 MG Montelukast Sodium 10 mg HS PO 07/11/24 22:00 07/15/24 21:47 10 MG Acetaminophen/ Hydrocodone Bitart 1 tab Q4HP PRN PO 07/11/24 21:30 07/16/24 09:38 1 TAB Ondansetron HCl 4 mg Q4HP PRN IV 07/11/24 21:30 Enoxaparin Sodium 40 mg DAILY SC 07/12/24 10:00 07/15/24 10:08 40 MG Acetaminophen 650 mg Q6HP PRN PO 07/11/24 21:30 07/13/24 13:16 650 MG Docusate Sodium 100 mg BID PO 07/11/24 22:00 07/15/24 21:47 100 MG Lactulose 15 ml DAILY PO 07/13/24 10:00 07/15/24 10:07 15 ML Lidocaine HCl 1 applic Q4HPRN PRN TOP 07/15/24 09:15 07/15/24 14:21 1 APPLIC objective Gen: Patient is 89-year-old female in mild distress Skin: Warm, dry, normal color and texture, no rash. HEENT: Normocephalic atraumatic, mucous membranes moist and pink. Neck: Cervical and supraclavicular nodes normal without enlargement, trachea is midline, thyroid gland is normal without masses. Pulmonary: Clear to auscultation and percussion bilaterally. Cardiac: Regular rate and rhythm. No murmur Abdomen: Soft, left lower quadrant tenderness, nondistended, bowel sounds present all 4 quadrants, no guarding, no rigidity, no organomegaly. Extremities: No cyanosis, clubbing, no edema Neuro: Cranial nerves II through XII grossly intact, normal affect and speech, no focal motor deficits. laboratory and microbiology Laboratory Tests 07/12/24 05:54 Test 07/12/24 05:54 Range/Units Serum Glucose 120 H 74-106 mg/dL Assessment/Plan Patient is a 89-year-old female presents to the hospital for abdominal pain and left hip tenderness r/o Left hip prosthetic joint infection r/o infected hematoma s/p ORIF left hip Acute abdominal pain Hypertension Atrial fibrillation Chronic anemia Recommendations: --s/p Intervention radiology aspiration of 7cc fluid, sent for analysis and culture ; follow --will empirically start on IV Vancomyinc and Ceftriaxone. follow cultures --We will monitor Thank you for consult. Dietary Evaluation Review Comments: 1) Advance pt diet when medically jfeasible 2) Consider ABDULKADIR 1 pkt BID for wounds 3) Continue current plan of care Expected Outcomes/Goals: 1) Pt diet to advance 2) F/U in 3-5 days Plan discussed with: SCOTT Velez MD Jul 16, 2024 10:56
[2024-07-16] MEDS ORDERED: SENNA 8.6 MG TAB PO PRN (12:45)
--- NOTE | 2024-07-16 13:02 | DVHPN2 ---
Progress Note - Dictate Date Seen: Jul 16, 2024 Medical Necessity Reason Pt with a Central, PICC or Fol: No Subjective Patient is seen and evaluated and took over her care from today. Patient's chart is reviewed. Having loose bowel movements. Had drainage of right hip small hematoma this morning with 7 mL fluid removed by Interventional Radiology and fluid cultures were sent. vital signs Vital Sign Date Time Temp Pulse Resp B/P (MAP) Pulse Ox O2 Delivery O2 Flow Rate FiO2 07/16/24 12:36 97.2 80 16 103/42 (62) 96 97.2 07/16/24 08:00 Nasal Cannula* 2 28 Total Intake and Output 07/15/24 07/15/24 07/16/24 15:00 23:00 07:00 Intake Total 800 ml 200 ml Output Total 1000 ml Balance -200 ml 200 ml medications Current Medications Medications Dose Ordered Sig/Nubia Route Start Time Stop Time Status Last Admin Dose Admin Metoprolol Succinate 25 mg DAILY PO 07/12/24 10:00 07/16/24 11:19 25 MG Levothyroxine Sodium 25 mcg QAM@0600 PO 07/12/24 06:00 07/16/24 06:17 25 MCG Allopurinol 300 mg DAILY PO 07/12/24 10:00 07/16/24 11:18 300 MG Montelukast Sodium 10 mg HS PO 07/11/24 22:00 07/15/24 21:47 10 MG Ondansetron HCl 4 mg Q4HP PRN IV 07/11/24 21:30 Enoxaparin Sodium 40 mg DAILY SC 07/12/24 10:00 07/16/24 11:26 40 MG Acetaminophen 650 mg Q6HP PRN PO 07/11/24 21:30 07/13/24 13:16 650 MG Lidocaine HCl 1 applic Q4HPRN PRN TOP 07/15/24 09:15 07/15/24 14:21 1 APPLIC Sennosides 8.6 mg QHSP PRN PO 07/16/24 12:45 UNV Pantoprazole Sodium 40 mg BID@0600,1700 PO 07/16/24 17:00 UNV Sucralfate 1 gm TID@0600,1130,2200 PO 07/16/24 22:00 UNV objective Alert awake oriented to place and person comfortable in bed. Heart regular rate and rhythm S1 plus S2. Lungs fair air movement without wheezing. Abdomen obese soft nontender. Positive bowel sounds. Extremities no edema. Left hip region examined no bruising noted. Covered with a dressing. Positive distal pedal pulses laboratory and microbiology Test 07/16/24 08:39 Range/Units Serum Glucose Pending Assessment/Plan Patient's heart rate is controlled. Having good bowel movements. Therefore we will stop scheduled laxatives and use p.r.n. laxative. Follow the fluid drainage from the hip cultures. Continue current supportive care and treatment. Continue physical therapy. If she remains stable consider discharge to intermediate facility tomorrow. Discussed with the patient along with the nurse at bedside regarding care plan. Problems(with codes): (1) Paroxysmal A-fib (2) Fall (3) Impacted stool in rectum (4) Abdominal pain (5) Hip fracture, left Dietary Evaluation Review Comments: 1) Advance pt diet when medically jfeasible 2) Consider ABDULKADIR 1 pkt BID for wounds 3) Continue current plan of care Expected Outcomes/Goals: 1) Pt diet to advance 2) F/U in 3-5 days Plan discussed with: Other RAY JOHNSON MD Jul 16, 2024 13:02
[2024-07-16 13:18] LABS: Basophils # (auto) 0.1 10 ^3/uL (0-0.2); Basophils % (auto) 0.7 % (0.0-2.0); Eosinophils # (auto) 0.1 10 ^3/uL (0-0.8); Eosinophils % (auto) 1.5 % (0.0-7.0); Hemoglobin 8.2 g/dL (12.2-16.2); Lymphocytes # (auto) 0.9 10 ^3/uL (0.4-5.4); Monocytes # (auto) 0.6 10 ^3/uL (0-1.3); Neutrophils # (auto) 6.5 10 ^3/uL (1.6-8.6); White Blood Cell 8.2 10^3/uL (4.4-10.8)
[2024-07-16 13:19] LABS: Chloride 103 mmol/L (98-107); Potassium 3.7 mmol/L (3.5-5.1); Sodium 140 mmol/L (136-145)
[2024-07-16 13:20] LABS: Calcium 9.1 mg/dL (8.7-10.4); Carbon Dioxide 29 mmol/L (20-31); Hematocrit 25.1 % (36.0-46.0); Lymphocytes % (auto) 11.3 % (10.0-50.0); Mean Corpuscular Hemoglobin 28.7 pg (28.0-32.0); Mean Corpuscular Hgb Conc. 32.7 g/dL (32.0-36.0); Mean Corpuscular Volume 87.9 fL (80.0-100.0); Monocytes % (auto) 7.1 % (0.0-12.0); Neutrophils % (auto) 79.4 % (37.0-80.0); Platelet Count (auto) 453 10^3/uL (140-450); Red Blood Cells 2.86 10^6/uL (4.0-5.20); Red Cell Distribution Width 19.1 % (11.8-14.3)
[2024-07-16 13:25] LABS: BUN/Creatinine Ratio 21.1 (10.0-20.0); Blood Urea Nitrogen 12 mg/dL (9-23); Glucose 124 mg/dL (74-106)
[2024-07-16 13:31] LABS: Anion Gap 8 (5-15)
[2024-07-16] MEDS: METHOCARBAMOL 500 MG TAB PO SCH (16:15)
[2024-07-16] MEDS: PANTOPRAZOLE 40 MG TAB PO SCH (16:15)
--- NOTE | 2024-07-16 19:12 | DVHPN2 ---
Progress Note - Dictate Date Seen: Jul 16, 2024 Medical Necessity Reason Pt with a Central, PICC or Fol: No Subjective Patient has been moving her bowels since the digital disimpaction Rectal pain better mid xylocaine ointment Patient's CT left hip shows possible hematoma underlying fluid collection can not be excluded, Infectious Disease was consulted and IR removed 7 mL of bloody fluid suspicious for hematoma or bleeding vital signs Vital Sign Date Time Temp Pulse Resp B/P (MAP) Pulse Ox O2 Delivery O2 Flow Rate FiO2 07/16/24 12:36 97.2 80 16 103/42 (62) 96 97.2 07/16/24 08:00 Nasal Cannula* 2 28 Total Intake and Output 07/15/24 07/15/24 07/16/24 15:00 23:00 07:00 Intake Total 800 ml 200 ml Output Total 1000 ml Balance -200 ml 200 ml medications Current Medications Medications Dose Ordered Sig/Nubia Route Start Time Stop Time Status Last Admin Dose Admin Metoprolol Succinate 25 mg DAILY PO 07/12/24 10:00 07/16/24 11:19 25 MG Levothyroxine Sodium 25 mcg QAM@0600 PO 07/12/24 06:00 07/16/24 06:17 25 MCG Allopurinol 300 mg DAILY PO 07/12/24 10:00 07/16/24 11:18 300 MG Montelukast Sodium 10 mg HS PO 07/11/24 22:00 07/15/24 21:47 10 MG Ondansetron HCl 4 mg Q4HP PRN IV 07/11/24 21:30 Enoxaparin Sodium 40 mg DAILY SC 07/12/24 10:00 07/16/24 11:26 40 MG Acetaminophen 650 mg Q6HP PRN PO 07/11/24 21:30 07/13/24 13:16 650 MG Lidocaine HCl 1 applic Q4HPRN PRN TOP 07/15/24 09:15 07/15/24 14:21 1 APPLIC Sennosides 8.6 mg QHSP PRN PO 07/16/24 12:45 Pantoprazole Sodium 40 mg BID@0600,1700 PO 07/16/24 17:00 07/16/24 16:15 40 MG Sucralfate 1 gm TID@0600,1130,2200 PO 07/16/24 22:00 Oxycodone/ Acetaminophen 1 tab Q4HP PRN PO 07/16/24 13:30 Methocarbamol 250 mg TID PO 07/16/24 14:00 07/16/24 16:15 250 MG objective General: NAD, AAOX3 Chest: lung bartholomew clear to auscultation Heart: RRR, no murmur Abdomen: Mild LLQ tenderness to palpation, +BS Rectal examination showed fecal impaction and digital disimpaction was done laboratory and microbiology Laboratory Tests 07/16/24 08:39 Test 07/16/24 08:39 Range/Units Serum Glucose 124 H 74-106 mg/dL Problems(with codes): (1) Impacted stool in rectum (2) GI bleed (3) Rectal pain (4) Proctitis (5) Constipation (6) Anemia of chronic disease (7) Hip fracture, left Prognosis Plan Awaiting final fluid cultures Taper off the laxatives IV antibiotics Monitor labs, transfuse 1 unit PRBC if hemoglobin is less than seven Supportive care Awaiting transfer to SNF Dietary Evaluation Review Comments: 1) Advance pt diet when medically jfeasible 2) Consider ABDULKADIR 1 pkt BID for wounds 3) Continue current plan of care Expected Outcomes/Goals: 1) Pt diet to advance 2) F/U in 3-5 days Plan discussed with: Patient SESAR HOWARD MD Jul 16, 2024 19:12
[2024-07-16] MEDS: OXYCODONE W/ ACETAMINOPHEN 5/325MG TABLET PO PRN (20:16)
[2024-07-16] MEDS: SUCRALFATE 1 GM/10 ML ORAL SUSP PO SCH (20:29)
[2024-07-16] MEDS: KETOROLAC TROMETH 30 MG/ML 1ML VIAL IV ONE (23:02)
[2024-07-17] VITALS (8 sets, daily range): BP systolic 105–145; BP diastolic 47–94; PULSE 63–80; RESP 16–20; TEMP 97.4–98.3; O2SAT 93–100
--- NOTE | 2024-07-17 09:45 | DVHPN2 ---
Progress Note - Dictate Date Seen: Jul 17, 2024 Medical Necessity Reason Pt with a Central, PICC or Fol: No Subjective Patient was seen and evaluated at bedside She was complaining of moderate amount of rectal pain, [place] given. A rectal examination was performed and a large amount of digital disimpaction and removal of rectal stool was done There was no mucosal tear a prolapse of the hemorrhoids 07/16, Lower extremity US revealed: 4 x 2.2 x 3 cm left hip effusion CT left hip shows: Possible hematoma underlying fluid collection can not be excluded. vital signs Vital Sign Date Time Temp Pulse Resp B/P (MAP) Pulse Ox O2 Delivery O2 Flow Rate FiO2 07/17/24 09:09 69 114/47 07/17/24 08:40 97.8 16 99 97.8 07/16/24 20:00 Nasal Cannula* 2 28 Total Intake and Output 07/16/24 07/16/24 07/17/24 15:00 23:00 07:00 Intake Total 940 ml 430 ml Balance 940 ml 430 ml medications Current Medications Medications Dose Ordered Sig/Nubia Route Start Time Stop Time Status Last Admin Dose Admin Metoprolol Succinate 25 mg DAILY PO 07/12/24 10:00 07/17/24 09:09 25 MG Levothyroxine Sodium 25 mcg QAM@0600 PO 07/12/24 06:00 07/17/24 05:40 25 MCG Allopurinol 300 mg DAILY PO 07/12/24 10:00 07/17/24 09:08 300 MG Montelukast Sodium 10 mg HS PO 07/11/24 22:00 07/16/24 20:28 10 MG Ondansetron HCl 4 mg Q4HP PRN IV 07/11/24 21:30 Enoxaparin Sodium 40 mg DAILY SC 07/12/24 10:00 07/17/24 09:09 40 MG Acetaminophen 650 mg Q6HP PRN PO 07/11/24 21:30 07/17/24 09:08 650 MG Lidocaine HCl 1 applic Q4HPRN PRN TOP 07/15/24 09:15 07/15/24 14:21 1 APPLIC Sennosides 8.6 mg QHSP PRN PO 07/16/24 12:45 Pantoprazole Sodium 40 mg BID@0600,1700 PO 07/16/24 17:00 07/16/24 16:15 40 MG Sucralfate 1 gm TID@0600,1130,2200 PO 07/16/24 22:00 07/17/24 05:40 1 GM Oxycodone/ Acetaminophen 1 tab Q4HP PRN PO 07/16/24 13:30 07/17/24 05:41 1 TAB Methocarbamol 250 mg TID PO 07/16/24 14:00 07/17/24 05:41 250 MG objective Gen: Patient is 89-year-old female in mild distress Skin: Warm, dry, normal color and texture, no rash. HEENT: Normocephalic atraumatic, mucous membranes moist and pink. Neck: Cervical and supraclavicular nodes normal without enlargement, trachea is midline, thyroid gland is normal without masses. Pulmonary: Clear to auscultation and percussion bilaterally. Cardiac: Regular rate and rhythm. No murmur Abdomen: Soft, left lower quadrant tenderness, nondistended, bowel sounds present all 4 quadrants, no guarding, no rigidity, no organomegaly. Extremities: No cyanosis, clubbing, no edema Neuro: Cranial nerves II through XII grossly intact, normal affect and speech, no focal motor deficits. laboratory and microbiology Laboratory Tests 07/16/24 08:39 Test 07/16/24 08:39 Range/Units Serum Glucose 124 H 74-106 mg/dL Assessment/Plan Patient is a 89-year-old female presents to the hospital for abdominal pain and left hip tenderness r/o Left hip prosthetic joint infection r/o infected hematoma s/p ORIF left hip Acute abdominal pain Hypertension Atrial fibrillation Chronic anemia Recommendations: --s/p Intervention radiology aspiration of 7cc fluid, sent for analysis and culture ; follow --will empirically start on IV Vancomyinc and Ceftriaxone. follow cultures --We will monitor Thank you for consult. Dietary Evaluation Review Comments: 1) Advance pt diet when medically jfeasible 2) Consider ABDULKADIR 1 pkt BID for wounds 3) Continue current plan of care Expected Outcomes/Goals: 1) Pt diet to advance 2) F/U in 3-5 days SCOTT TARIQ MD Jul 17, 2024 09:45
--- NOTE | 2024-07-17 16:40 | DVHPN2 ---
Progress Note - Dictate Date Seen: Jul 17, 2024 Medical Necessity Reason Pt with a Central, PICC or Fol: No Subjective Clinically feeling better. Participating with physical therapy but still complains of hip pain with activity. Hip fluid cultures no growth for organisms. vital signs Vital Sign Date Time Temp Pulse Resp B/P (MAP) Pulse Ox O2 Delivery O2 Flow Rate FiO2 07/17/24 13:03 97.9 67 18 133/48 (76) 100 97.9 07/17/24 08:00 Nasal Cannula* 2 28 Total Intake and Output 07/16/24 07/16/24 07/17/24 15:00 23:00 07:00 Intake Total 940 ml 430 ml Balance 940 ml 430 ml medications Current Medications Medications Dose Ordered Sig/Nubia Route Start Time Stop Time Status Last Admin Dose Admin Metoprolol Succinate 25 mg DAILY PO 07/12/24 10:00 07/17/24 09:09 25 MG Levothyroxine Sodium 25 mcg QAM@0600 PO 07/12/24 06:00 07/17/24 05:40 25 MCG Allopurinol 300 mg DAILY PO 07/12/24 10:00 07/17/24 09:08 300 MG Montelukast Sodium 10 mg HS PO 07/11/24 22:00 07/16/24 20:28 10 MG Ondansetron HCl 4 mg Q4HP PRN IV 07/11/24 21:30 Enoxaparin Sodium 40 mg DAILY SC 07/12/24 10:00 07/17/24 09:09 40 MG Acetaminophen 650 mg Q6HP PRN PO 07/11/24 21:30 07/17/24 09:08 650 MG Lidocaine HCl 1 applic Q4HPRN PRN TOP 07/15/24 09:15 07/15/24 14:21 1 APPLIC Sennosides 8.6 mg QHSP PRN PO 07/16/24 12:45 Pantoprazole Sodium 40 mg BID@0600,1700 PO 07/16/24 17:00 07/17/24 16:29 40 MG Sucralfate 1 gm TID@0600,1130,2200 PO 07/16/24 22:00 07/17/24 11:46 1 GM Oxycodone/ Acetaminophen 1 tab Q4HP PRN PO 07/16/24 13:30 07/17/24 15:42 1 TAB Methocarbamol 250 mg TID PO 07/16/24 14:00 07/17/24 14:43 250 MG objective Alert awake oriented to place and person comfortable in bed. Heart sinus rhythm S1 plus S2. Lungs without rales wheezes. Abdomen soft positive bowel sounds. Extremities improved edema. laboratory and microbiology Laboratory Tests 07/16/24 08:39 Test 07/16/24 08:39 Range/Units Serum Glucose 124 H 74-106 mg/dL Assessment/Plan Continue physical therapy and pain medications as she is on. Continue activity as she tolerates. If she remains stable consider transferred to long-term facility for physical therapy. Discussed with the patient's nurse regarding care plan. Problems(with codes): (1) Paroxysmal A-fib (2) Fall (3) Abdominal pain (4) Constipation (5) Anemia of chronic disease Dietary Evaluation Review Comments: 1) Advance pt diet when medically jfeasible 2) Consider ABDULKADIR 1 pkt BID for wounds 3) Continue current plan of care Expected Outcomes/Goals: 1) Pt diet to advance 2) F/U in 3-5 days Plan discussed with: RAY Sandoval MD Jul 17, 2024 16:40
--- NOTE | 2024-07-17 22:34 | DVHPN2 ---
Progress Note - Dictate Date Seen: Jul 17, 2024 Medical Necessity Reason Pt with a Central, PICC or Fol: No Subjective Patient is feeling much better Her memory is coming back and she is more awake and alert Patient had forgotten about her fall about her hip surgery ! Patient has been moving her bowels since the digital disimpaction Rectal pain better with xylocaine ointment Patient's CT left hip shows possible hematoma underlying fluid collection can not be excluded, Infectious Disease was consulted and IR removed 7 mL of bloody fluid suspicious for hematoma or bleeding vital signs Vital Sign Date Time Temp Pulse Resp B/P (MAP) Pulse Ox O2 Delivery O2 Flow Rate FiO2 07/17/24 21:00 97.4 75 18 105/94 (98) 98 97.4 07/17/24 20:00 Nasal Cannula* 2 28 Total Intake and Output 07/16/24 07/16/24 07/17/24 15:00 23:00 07:00 Intake Total 940 ml 430 ml Balance 940 ml 430 ml medications Current Medications Medications Dose Ordered Sig/Nubia Route Start Time Stop Time Status Last Admin Dose Admin Metoprolol Succinate 25 mg DAILY PO 07/12/24 10:00 07/17/24 09:09 25 MG Levothyroxine Sodium 25 mcg QAM@0600 PO 07/12/24 06:00 07/17/24 05:40 25 MCG Allopurinol 300 mg DAILY PO 07/12/24 10:00 07/17/24 09:08 300 MG Montelukast Sodium 10 mg HS PO 07/11/24 22:00 07/17/24 21:24 10 MG Ondansetron HCl 4 mg Q4HP PRN IV 07/11/24 21:30 Enoxaparin Sodium 40 mg DAILY SC 07/12/24 10:00 07/17/24 09:09 40 MG Acetaminophen 650 mg Q6HP PRN PO 07/11/24 21:30 07/17/24 09:08 650 MG Lidocaine HCl 1 applic Q4HPRN PRN TOP 07/15/24 09:15 07/15/24 14:21 1 APPLIC Sennosides 8.6 mg QHSP PRN PO 07/16/24 12:45 Pantoprazole Sodium 40 mg BID@0600,1700 PO 07/16/24 17:00 07/17/24 16:29 40 MG Sucralfate 1 gm TID@0600,1130,2200 PO 07/16/24 22:00 07/17/24 21:24 1 GM Oxycodone/ Acetaminophen 1 tab Q4HP PRN PO 07/16/24 13:30 07/17/24 20:13 1 TAB Methocarbamol 250 mg TID PO 07/16/24 14:00 07/17/24 21:24 250 MG objective General: NAD, AAOX3 Chest: lung bartholomwe clear to auscultation Heart: RRR, no murmur Abdomen: Mild LLQ tenderness to palpation, +BS Rectal examination showed fecal impaction and digital disimpaction was done laboratory and microbiology Laboratory Tests 07/16/24 08:39 Test 07/16/24 08:39 Range/Units Serum Glucose 124 H 74-106 mg/dL Problems(with codes): (1) Fall (2) Impacted stool in rectum (3) GI bleed (4) Proctitis (5) Rectal pain (6) Constipation (7) Hip fracture, left Prognosis Assessment plan Fluid aspiration contrast pending patient has been started antibiotics by consult Patient has shown marked improvement Continue physical therapy Advance diet as tolerated Continue anorectal hemorrhoidal care Stool softeners Avoid narcotics Discharge planning to SNF as per hospitalist Dietary Evaluation Review Comments: 1) Advance pt diet when medically jfeasible 2) Consider ABDULKADIR 1 pkt BID for wounds 3) Continue current plan of care Expected Outcomes/Goals: 1) Pt diet to advance 2) F/U in 3-5 days Plan discussed with: Patient SESAR HOWARD MD Jul 17, 2024 22:34
[2024-07-18] VITALS (8 sets, daily range): BP systolic 105–126; BP diastolic 41–77; PULSE 61–83; RESP 16–20; TEMP 97.2–98.4; O2SAT 97–100
--- NOTE | 2024-07-18 11:45 | DVHPN2 ---
Progress Note - Dictate Date Seen: Jul 18, 2024 Medical Necessity Reason Pt with a Central, PICC or Fol: No Subjective Patient was seen and evaluated at bedside She was complaining of moderate amount of rectal pain, [place] given. A rectal examination was performed and a large amount of digital disimpaction and removal of rectal stool was done There was no mucosal tear a prolapse of the hemorrhoids 07/16, Lower extremity US revealed: 4 x 2.2 x 3 cm left hip effusion CT left hip shows: Possible hematoma underlying fluid collection can not be excluded. IR removed 7 mL of bloody fluid suspicious for hematoma or bleeding vital signs Vital Sign Date Time Temp Pulse Resp B/P (MAP) Pulse Ox O2 Delivery O2 Flow Rate FiO2 07/18/24 10:19 77 105/60 07/18/24 09:05 97.8 16 98 97.8 07/17/24 20:00 Nasal Cannula* 2 28 Total Intake and Output 07/17/24 07/17/24 07/18/24 15:00 23:00 07:00 Intake Total 670 ml 200 ml Output Total 500 ml Balance 170 ml 200 ml medications Current Medications Medications Dose Ordered Sig/Nubia Route Start Time Stop Time Status Last Admin Dose Admin Metoprolol Succinate 25 mg DAILY PO 07/12/24 10:00 07/18/24 10:19 25 MG Levothyroxine Sodium 25 mcg QAM@0600 PO 07/12/24 06:00 07/18/24 05:45 25 MCG Allopurinol 300 mg DAILY PO 07/12/24 10:00 07/18/24 10:17 300 MG Montelukast Sodium 10 mg HS PO 07/11/24 22:00 07/17/24 21:24 10 MG Ondansetron HCl 4 mg Q4HP PRN IV 07/11/24 21:30 Enoxaparin Sodium 40 mg DAILY SC 07/12/24 10:00 07/18/24 10:20 40 MG Acetaminophen 650 mg Q6HP PRN PO 07/11/24 21:30 07/18/24 10:18 650 MG Lidocaine HCl 1 applic Q4HPRN PRN TOP 07/15/24 09:15 07/15/24 14:21 1 APPLIC Sennosides 8.6 mg QHSP PRN PO 07/16/24 12:45 Pantoprazole Sodium 40 mg BID@0600,1700 PO 07/16/24 17:00 07/18/24 05:45 40 MG Sucralfate 1 gm TID@0600,1130,2200 PO 07/16/24 22:00 07/18/24 05:45 1 GM Oxycodone/ Acetaminophen 1 tab Q4HP PRN PO 07/16/24 13:30 07/18/24 08:37 1 TAB Methocarbamol 250 mg TID PO 07/16/24 14:00 07/18/24 05:46 250 MG objective Gen: Patient is 89-year-old female in mild distress Skin: Warm, dry, normal color and texture, no rash. HEENT: Normocephalic atraumatic, mucous membranes moist and pink. Neck: Cervical and supraclavicular nodes normal without enlargement, trachea is midline, thyroid gland is normal without masses. Pulmonary: Clear to auscultation and percussion bilaterally. Cardiac: Regular rate and rhythm. No murmur Abdomen: Soft, left lower quadrant tenderness, nondistended, bowel sounds present all 4 quadrants, no guarding, no rigidity, no organomegaly. Extremities: No cyanosis, clubbing, no edema Neuro: Cranial nerves II through XII grossly intact, normal affect and speech, no focal motor deficits. laboratory and microbiology Laboratory Tests 07/16/24 08:39 Test 07/16/24 08:39 Range/Units Serum Glucose 124 H 74-106 mg/dL Assessment/Plan Patient is a 89-year-old female presents to the hospital for abdominal pain and left hip tenderness r/o Left hip prosthetic joint infection r/o infected hematoma s/p ORIF left hip Acute abdominal pain Hypertension Atrial fibrillation Chronic anemia Recommendations: --s/p Intervention radiology aspiration of 7cc fluid, sent for analysis and culture ; follow --will empirically start on IV Vancomyinc and Ceftriaxone. follow cultures --We will monitor Thank you for consult. Dietary Evaluation Review Comments: 1) Advance pt diet when medically jfeasible 2) Consider ABDULKADIR 1 pkt BID for wounds 3) Continue current plan of care Expected Outcomes/Goals: 1) Pt diet to advance 2) F/U in 3-5 days SCOTT TARIQ MD Jul 18, 2024 11:45
--- NOTE | 2024-07-18 12:51 | DVHPN2 ---
Progress Note - Dictate Date Seen: Jul 18, 2024 Medical Necessity Reason Pt with a Central, PICC or Fol: No Subjective Clinically feeling better. Patient participated with physical therapy apparently took few steps. Patient has a long term facility bed available at [place] [facility] for tomorrow. vital signs Vital Sign Date Time Temp Pulse Resp B/P (MAP) Pulse Ox O2 Delivery O2 Flow Rate FiO2 07/18/24 10:19 77 105/60 07/18/24 09:05 97.8 16 98 97.8 07/17/24 20:00 Nasal Cannula* 2 28 Total Intake and Output 07/17/24 07/17/24 07/18/24 15:00 23:00 07:00 Intake Total 670 ml 200 ml Output Total 500 ml Balance 170 ml 200 ml medications Current Medications Medications Dose Ordered Sig/Nubia Route Start Time Stop Time Status Last Admin Dose Admin Metoprolol Succinate 25 mg DAILY PO 07/12/24 10:00 07/18/24 10:19 25 MG Levothyroxine Sodium 25 mcg QAM@0600 PO 07/12/24 06:00 07/18/24 05:45 25 MCG Allopurinol 300 mg DAILY PO 07/12/24 10:00 07/18/24 10:17 300 MG Montelukast Sodium 10 mg HS PO 07/11/24 22:00 07/17/24 21:24 10 MG Ondansetron HCl 4 mg Q4HP PRN IV 07/11/24 21:30 Enoxaparin Sodium 40 mg DAILY SC 07/12/24 10:00 07/18/24 10:20 40 MG Acetaminophen 650 mg Q6HP PRN PO 07/11/24 21:30 07/18/24 10:18 650 MG Lidocaine HCl 1 applic Q4HPRN PRN TOP 07/15/24 09:15 07/15/24 14:21 1 APPLIC Sennosides 8.6 mg QHSP PRN PO 07/16/24 12:45 Pantoprazole Sodium 40 mg BID@0600,1700 PO 07/16/24 17:00 07/18/24 05:45 40 MG Sucralfate 1 gm TID@0600,1130,2200 PO 07/16/24 22:00 07/18/24 05:45 1 GM Oxycodone/ Acetaminophen 1 tab Q4HP PRN PO 07/16/24 13:30 07/18/24 08:37 1 TAB Methocarbamol 250 mg TID PO 07/16/24 14:00 07/18/24 05:46 250 MG objective Alert awake oriented to place and person comfortable in bed. Heart sinus rhythm S1 plus S2. Lungs without rales wheezes. Abdomen soft positive bowel sounds. Extremities improved edema. laboratory and microbiology Laboratory Tests 07/16/24 08:39 Test 07/16/24 08:39 Range/Units Serum Glucose 124 H 74-106 mg/dL Assessment/Plan Continue physical therapy and pain medications as she is on. Discharge to long term facility for continued physical therapy tomorrow. Discussed with the patient. Problems(with codes): (1) Paroxysmal A-fib (2) Fall (3) Constipation Dietary Evaluation Review Comments: 1) Advance pt diet when medically jfeasible 2) Consider ABDULKADIR 1 pkt BID for wounds 3) Continue current plan of care Expected Outcomes/Goals: 1) Pt diet to advance 2) F/U in 3-5 days Plan discussed with: Other RAY JOHNSON MD Jul 18, 2024 12:51
--- NOTE | 2024-07-18 14:07 | DVHPN2 ---
Progress Note - Dictate Date Seen: Jul 18, 2024 Medical Necessity Reason Pt with a Central, PICC or Fol: No Subjective Patient is again complaining of left sided hip pain She is not comfortable in the bed Patient has been moving her bowels since the digital disimpaction Rectal pain better with xylocaine ointment Patient's CT left hip shows possible hematoma underlying fluid collection can not be excluded, Infectious Disease was consulted and IR removed 7 mL of bloody fluid suspicious for hematoma or bleeding G stain of fluid aspirated showed moderate WBC few RBC and no organism vital signs Vital Sign Date Time Temp Pulse Resp B/P (MAP) Pulse Ox O2 Delivery O2 Flow Rate FiO2 07/18/24 13:28 97.8 61 18 106/52 (70) 97 97.8 07/17/24 20:00 Nasal Cannula* 2 28 Total Intake and Output 07/17/24 07/17/24 07/18/24 15:00 23:00 07:00 Intake Total 670 ml 200 ml Output Total 500 ml Balance 170 ml 200 ml medications Current Medications Medications Dose Ordered Sig/Nubia Route Start Time Stop Time Status Last Admin Dose Admin Metoprolol Succinate 25 mg DAILY PO 07/12/24 10:00 07/18/24 10:19 25 MG Levothyroxine Sodium 25 mcg QAM@0600 PO 07/12/24 06:00 07/18/24 05:45 25 MCG Allopurinol 300 mg DAILY PO 07/12/24 10:00 07/18/24 10:17 300 MG Montelukast Sodium 10 mg HS PO 07/11/24 22:00 07/17/24 21:24 10 MG Ondansetron HCl 4 mg Q4HP PRN IV 07/11/24 21:30 Enoxaparin Sodium 40 mg DAILY SC 07/12/24 10:00 07/18/24 10:20 40 MG Acetaminophen 650 mg Q6HP PRN PO 07/11/24 21:30 07/18/24 10:18 650 MG Lidocaine HCl 1 applic Q4HPRN PRN TOP 07/15/24 09:15 07/15/24 14:21 1 APPLIC Sennosides 8.6 mg QHSP PRN PO 07/16/24 12:45 Pantoprazole Sodium 40 mg BID@0600,1700 PO 07/16/24 17:00 07/18/24 05:45 40 MG Sucralfate 1 gm TID@0600,1130,2200 PO 07/16/24 22:00 07/18/24 12:54 1 GM Oxycodone/ Acetaminophen 1 tab Q4HP PRN PO 07/16/24 13:30 07/18/24 08:37 1 TAB Methocarbamol 250 mg TID PO 07/16/24 14:00 07/18/24 12:55 250 MG Docusate Sodium 100 mg BID PO 07/18/24 22:00 UNV objective General: NAD, AAOX3 Chest: lung bartholomew clear to auscultation Heart: RRR, no murmur Abdomen: Mild LLQ tenderness to palpation, +BS Rectal examination showed fecal impaction and digital disimpaction was done laboratory and microbiology Laboratory Tests 07/16/24 08:39 Test 07/16/24 08:39 Range/Units Serum Glucose 124 H 74-106 mg/dL Problems(with codes): (1) Impacted stool in rectum (2) Fall (3) Rectal pain (4) Constipation (5) Hip fracture, left (6) Anemia of chronic disease Prognosis Plan Arrange physical therapy; possible out of bed to chair Pain medications as needed Colace 100 mg p.o. twice a day for stool softener Discharge planning to [facility] facility tomorrow for physical therapy Dietary Evaluation Review Comments: 1) Advance pt diet when medically jfeasible 2) Consider ABDULKADIR 1 pkt BID for wounds 3) Continue current plan of care Expected Outcomes/Goals: 1) Pt diet to advance 2) F/U in 3-5 days Plan discussed with: Patient, Other (Nurse) SESAR HOWARD MD Jul 18, 2024 14:07
[2024-07-18] MEDS: DOCUSATE SOD 100 MG CAP PO SCH (20:55)
[2024-07-19 05:00] VITALS: BP 130/68; PULSE 75; RESP 20; TEMP 98; O2SAT 99
[2024-07-19 08:00] VITALS: PULSE 74
[2024-07-19 09:00] VITALS: BP 129/58; PULSE 69; RESP 16; TEMP 98.1; O2SAT 98
--- NOTE | 2024-07-19 12:07 | DVHDS2 ---
Discharge Summary Date of Admission Jul 11, 2024 at 21:30 Date of Discharge: Jul 19, 2024 Labs/Diagnostic Data: Laboratory Results Test 07/16/24 19:20 07/16/24 08:39 07/12/24 05:54 07/11/24 14:32 Troponin I High Sensitivity 5 ng/L (</=34) White Blood Count 8.2 10^3/uL (4.4-10.8) Red Blood Count 2.86 10^6/uL (4.0-5.20) Hemoglobin 8.2 g/dL (12.2-16.2) Hematocrit 25.1 % (36.0-46.0) Mean Corpuscular Volume 87.9 fL (80.0-100.0) Mean Corpuscular Hemoglobin 28.7 pg (28.0-32.0) Mean Corpuscular Hemoglobin Concent 32.7 g/dL (32.0-36.0) Red Cell Distribution Width 19.1 % (11.8-14.3) Platelet Count 453 10^3/uL (140-450) Mean Platelet Volume 6.9 fL (6.9-10.8) Neutrophils (%) (Auto) 79.4 % (37.0-80.0) Lymphocytes (%) (Auto) 11.3 % (10.0-50.0) Monocytes (%) (Auto) 7.1 % (0.0-12.0) Eosinophils (%) (Auto) 1.5 % (0.0-7.0) Basophils (%) (Auto) 0.7 % (0.0-2.0) Neutrophils # (Auto) 6.5 10 ^3/uL (1.6-8.6) Lymphocytes # (Auto) 0.9 10 ^3/uL (0.4-5.4) Monocytes # (Auto) 0.6 10 ^3/uL (0-1.3) Eosinophils # (Auto) 0.1 10 ^3/uL (0-0.8) Basophils # (Auto) 0.1 10 ^3/uL (0-0.2) Nucleated Red Blood Cells 0.0 % Prothrombin Time 12.1 sec (9.3-11.8) Prothrombin Time INR 1.15 (0.9-1.15) Activated Partial Thromboplast Time 29.7 SEC (24.5-34.5) Sodium Level 140 mmol/L (136-145) Potassium Level 3.7 mmol/L (3.5-5.1) Chloride Level 103 mmol/L (98-107) Carbon Dioxide Level 29 mmol/L (20-31) Anion Gap 8 (5-15) Blood Urea Nitrogen 12 mg/dL (9-23) Creatinine 0.57 mg/dL (0.550-1.02) Glomerular Filtration Rate Calc 87 mL/min (>90) BUN/Creatinine Ratio 21.1 (10.0-20.0) Serum Glucose 124 mg/dL (74-106) Calcium Level 9.1 mg/dL (8.7-10.4) Iron Level 33 ug/dL (50-170) Total Iron Binding Capacity 188 ug/dL (250-425) Percent Iron Saturation 17.6 % (15-50) Total Bilirubin 0.8 mg/dL (0.2-1.0) Aspartate Amino Transferase (AST) 43 U/L (13-40) Alanine Aminotransferase (ALT) 18 U/L (7-40) Alkaline Phosphatase 137 U/L (46-116) Total Protein 5.9 g/dL (5.7-8.2) Albumin 3.3 g/dL (3.2-4.8) Lipase 20 U/L (12-53) Other Laboratory Tests 07/16/24 08:39 Brief Hx & Hospital Course: 89-year-old female presents for evaluation of abdominal pain. Patient reports a six day history of intermittent sharp left lower quadrant abdominal pain. Denies nausea or vomiting. She also reports mild left hip tenderness. She status post or if recently of the left hip. Denies fever or chills. No other acute complaints reported. She is admitted and evaluated by sales representative [employer] as well as Infectious Disease. Patient's constipation/fecal stool impaction has resolved with laxatives. Patient however had hip pain for which he was evaluated and interventional radiology drain the small fluid collection did not reveal any infection. Noted to be small hematoma. Patient otherwise supportively treated. Pain management with pain medications were done. Patient is getting out of bed ambulating after taking pain meds minimally. However given patient clinically stable and having had necessary workup and evaluations it is felt patient sees stable to be transferred to a correction facility for continued physical therapy. I have talked with the patient regarding her constipation and hip fluid collection as well as discharge medications and follow-up plan of care. She has verbalized understanding of these and agree with the discharge care plan. Condition at Discharge: Stable Final Diagnosis/Problems List 1. Abdominal pain 2. Constipation 3. Recent left hip surgery, ruled out left hip fluid collection 4. Hypothyroidism 5. chronic asthma [facility]charge Disposition[facility] Discharge Instruct/Medications Diet: Consistent carbohydrate, Cardiac 2g Na,low cholest Activity: No Restrictions, As Tolerated Follow Up/Referral: PCP [address]Samir De Leon 2 weeks hip pain Medications: see transfer medrec list Discharge Statement: "Patient was advised to return to the ER or call 911 if any headaches, dizziness, shortness of breath, chest pain, abdominal pain, bleeding, fevers, or worsening of medical condition. Patient was counseled about treatment plan, medications, possible side effects, patientverbalized understanding. All questions were answered to the best of my ability. This discharge took greater then 30 minutes in planning, reviewing documentation, counseling the patient, and discussing with other team members." ASSESSMENT ASSESSMENT Assessment RAY JOHNSON MD Jul 19, 2024 12:07
--- NOTE | 2024-07-19 12:46 | DVHPN2 ---
Progress Note - Dictate Date Seen: Jul 19, 2024 Medical Necessity Reason Pt with a Central, PICC or Fol: No Subjective Patient was seen and evaluated at bedside . Patient has a residential facility bed available at [facility] for today She was complaining of moderate amount of rectal pain, [place] given. 07/16, Lower extremity US revealed: 4 x 2.2 x 3 cm left hip effusion A rectal examination was performed and a large amount of digital disimpaction and removal of rectal stool was done There was no mucosal tear a prolapse of the hemorrhoids CT left hip shows: Possible hematoma underlying fluid collection can not be excluded. IR removed 7 mL of bloody fluid suspicious for hematoma or bleeding vital signs Vital Sign Date Time Temp Pulse Resp B/P (MAP) Pulse Ox O2 Delivery O2 Flow Rate FiO2 07/19/24 09:44 69 129/58 07/19/24 05:00 98.0 20 99 98.0 07/18/24 20:00 Nasal Cannula* 2 28 Total Intake and Output 07/18/24 07/18/24 07/19/24 15:00 23:00 07:00 Intake Total 500 ml 200 ml Output Total 300 ml Balance 200 ml 200 ml medications Current Medications Medications Dose Ordered Sig/Nubia Route Start Time Stop Time Status Last Admin Dose Admin Metoprolol Succinate 25 mg DAILY PO 07/12/24 10:00 07/19/24 09:44 25 MG Levothyroxine Sodium 25 mcg QAM@0600 PO 07/12/24 06:00 07/19/24 05:30 25 MCG Allopurinol 300 mg DAILY PO 07/12/24 10:00 07/19/24 09:44 300 MG Montelukast Sodium 10 mg HS PO 07/11/24 22:00 07/18/24 20:55 10 MG Ondansetron HCl 4 mg Q4HP PRN IV 07/11/24 21:30 Enoxaparin Sodium 40 mg DAILY SC 07/12/24 10:00 07/19/24 09:45 40 MG Acetaminophen 650 mg Q6HP PRN PO 07/11/24 21:30 07/18/24 17:43 650 MG Lidocaine HCl 1 applic Q4HPRN PRN TOP 07/15/24 09:15 07/15/24 14:21 1 APPLIC Sennosides 8.6 mg QHSP PRN PO 07/16/24 12:45 Pantoprazole Sodium 40 mg BID@0600,1700 PO 07/16/24 17:00 07/19/24 05:30 40 MG Sucralfate 1 gm TID@0600,1130,2200 PO 07/16/24 22:00 07/19/24 11:37 1 GM Oxycodone/ Acetaminophen 1 tab Q4HP PRN PO 07/16/24 13:30 07/19/24 09:46 1 TAB Methocarbamol 250 mg TID PO 07/16/24 14:00 07/19/24 05:30 250 MG Docusate Sodium 100 mg BID PO 07/18/24 22:00 07/19/24 09:45 100 MG objective Gen: Patient is 89-year-old female in mild distress Skin: Warm, dry, normal color and texture, no rash. HEENT: Normocephalic atraumatic, mucous membranes moist and pink. Neck: Cervical and supraclavicular nodes normal without enlargement, trachea is midline, thyroid gland is normal without masses. Pulmonary: Clear to auscultation and percussion bilaterally. Cardiac: Regular rate and rhythm. No murmur Abdomen: Soft, left lower quadrant tenderness, nondistended, bowel sounds present all 4 quadrants, no guarding, no rigidity, no organomegaly. Extremities: No cyanosis, clubbing, no edema Neuro: Cranial nerves II through XII grossly intact, normal affect and speech, no focal motor deficits. laboratory and microbiology Laboratory Tests 07/16/24 08:39 Test 07/16/24 08:39 Range/Units Serum Glucose 124 H 74-106 mg/dL Assessment/Plan Patient is a 89-year-old female presents to the hospital for abdominal pain and left hip tenderness r/o Left hip prosthetic joint infection r/o infected hematoma s/p ORIF left hip Acute abdominal pain Hypertension Atrial fibrillation Chronic anemia Recommendations: --s/p Intervention radiology aspiration of 7cc fluid, sent for analysis and culture ; follow --will empirically start on IV Vancomyinc and Ceftriaxone. -Aspirate results ; WBC and RBC seen , No organisms seen --We will monitor Thank you for consult. Dietary Evaluation Review Comments: 1) Advance pt diet when medically jfeasible 2) Consider ABDULKADIR 1 pkt BID for wounds 3) Continue current plan of care Expected Outcomes/Goals: 1) Pt diet to advance 2) F/U in 3-5 days SCOTT TARIQ MD Jul 19, 2024 12:46
[2024-07-19 13:00] VITALS: BP 143/67; PULSE 75; RESP 17; TEMP 98.3; O2SAT 99
[2024-07-19 17:00] VITALS: BP 137/58; PULSE 70; RESP 18; TEMP 97.8; O2SAT 100
[2024-07-19 17:04] VITALS: BP 129/58; PULSE 69; TEMP 36.7
--- NOTE | 2024-08-01 10:29 | ECG ---
[facility] Test Date: 2024-07-16 Test Time: 10:19:51 Pat Name: RAUDEL ROB Department: Respiratoy Room: 0249T A Gender: F [employer]: : [id number] Requested By: RAY JOHNSON Order Number: [id number] Reading MD: Crystal Caal Measurements Intervals [place] Rate: 75 P: 0 FL: 0 QRS: -1 QRSD: 124 T: -29 QT: 421 QTc: 471 Interpretive Statements Afib/flut and V-paced complexes No further rhythm analysis attempted due to paced rhythm Right bundle branch block Baseline wander in lead(s) V6 Electronically Signed On 08-02-2024 9:07:34 PST by Crystal Caal Please click the below link to view image of tracing.
== END 2024-07-19 17:52 | DRG 392 ==
LOC: ER 14:04 → EDBD 14:04 → OVERFLOW 21:30 → WEST WING 23:51 → OVERFLOW 07-12 00:43 → TELE-EAST 07-12 01:35 → EAST 07-12 01:36 → TELE-EAST 07-12 02:07
PROVIDERS: ADMIT Nurse Practitioner; ATTEND Hospitalist
PROC: 0S9B3ZZ Drainage of Left Hip Joint, Percutaneous Approach (ICD-10-PCS; principal; 2024-07-16)
DX: K59.00 Constipation, unspecified (principal); R65.10 Systemic inflammatory response syndrome (SIRS) of non-infectious origin without acute organ dysfunction; E87.1 Hypo-osmolality and hyponatremia; D63.1 Anemia in chronic kidney disease; F32.A Depression, unspecified; M10.9 Gout, unspecified; I12.9 Hypertensive chronic kidney disease with stage 1 through stage 4 chronic kidney disease, or unspecified chronic kidney disease; I07.1 Rheumatic tricuspid insufficiency; E03.9 Hypothyroidism, unspecified; I48.0 Paroxysmal atrial fibrillation; N18.9 Chronic kidney disease, unspecified; J45.909 Unspecified asthma, uncomplicated; E66.9 Obesity, unspecified; Z88.0 Allergy status to penicillin; Z95.0 Presence of cardiac pacemaker; Z90.710 Acquired absence of both cervix and uterus; Z87.891 Personal history of nicotine dependence; Z82.49 Family history of ischemic heart disease and other diseases of the circulatory system; Z83.3 Family history of diabetes mellitus; Z79.82 Long term (current) use of aspirin; Z79.899 Other long term (current) drug therapy; Z88.8 Allergy status to other drugs, medicaments and biological substances; Z68.31 Body mass index [BMI] 31.0-31.9, adult
CPT/HCPCS: 10005; 36415; 73700; 74176; 76942; 80048; 80053; 83540; 83550; 83690; 84484; 85025; 85610; 85730; 87081; 87205; 93005; 93926; 97110; 97116; 97163; 97530; C1729; G0378; J1885